=== PATIENT | male | born 1960 | race Caucasian/White ===

== ENCOUNTER 2025-03-21 14:11 | Outpatient (POV) | payer BC, SELFPAY ==
--- OUTSIDE RECORDS SUMMARY | 2025-03-21 14:30 | XMS_ITS | Continuity of Care Document ---
Author Organization ERIN - Sha gagnon MD, Main Office Address [address] , [facility] [address] [place] [address] Care Team Providers Care Magician Helper Name Role Phone RAMIRO WHITE Primary Care Provider Assessment No assessment recorded. Plan of Treatment Reminders Order Date Submit Date Provider Last Modified By Organization Details Last Modified Time Details Appointments None record ed. Lab None record ed. Referral None record ed. Procedures None record ed. Surgeries None record ed. Imaging None record ed. Medication Orders None record ed. Patient TargetsNo targets recorded. Patient Instructions Encounter Date Encounter Id Patient Instructions Last Modified By Organization Details Last Modified Time 03/20/2025 [id number] Learning About Relief for Back Pain Not available 03/20/2025 13:05:32 Reason for Referral None Reported. Results Created Date Observation Date Name Description Value Unit Range Abnormal Flag Note LastModifiedBy Organization Detail LastModifiedTime 03/20/2003/20/2025 elect romyo gram + nerve condu ction study No observ ation record ed. BARCODE Not Available 2024 13:13:11 Result Notes None recorded. Problems No Known Problems Procedures Surgical History Date Name Laterality Status Provider Name and Address Organization Details Recorded Time 03/20/2025 NCV/EMG completed Franc Aguirre MD 03/20/2025 13:04:47 Imaging Results None recorded. Procedure Notes None recorded. Medical Equipment None Reported. Allergies No known drug allergies Medications Name Sig Start Date Stop Date Status Note LastModified by Organization Details LastModified Time amoxicillin 500 mg capsule TAKE FOUR (4) CAPSULES BY ORAL ROUTE. active Not Available Not Available Not Available atorvastatin 40 mg tablet TAKE ONE (1) TABLET EVERY DAY BY ORAL ROUTE DIRECTED active Not Available Not Available No t Available prednisone 10 mg tablet TAKE ONE (1) TABLET TWICE A DAY BY ORAL ROUTE FOR FIVE (5) DAYS. active Not Available Not Available No t Available griseofulvin microsize 500 mg tablet TAKE ONE (1) TABLET BY MOUTH TWICE DAILY active Not Available Not Available Not Available clopidogrel 75 mg tablet TAKE ONE (1) TABLET BY MOUTH EVERY DAY active Not Available Not Available No t Available tramadol 50 mg tablet TAKE ONE (1) TABLET TWICE A DAY BY ORAL ROUTE FOR THREE (3) DAYS, FOR HIP PAIN. active Not Available Not Available No t Available benzonatate 100 mg capsule TAKE ONE (1) CAPSULE THREE (3) TIMES A DAY BY ORAL ROUTE NEEDED FOR FIVE (5) DAYS, FOR COUGH. active Not Available Not Available No t Available oseltamivir 75 mg capsule TAKE ONE (1) CAPSULE (75 MG) BY ORAL ROUTE TWO (2) TIMES PER DAY FOR FIVE (5) DAYS active Not Available Not Available No t Available nitroglyceri n 400 mcg/spray translingual PLACE ONE (1) SPRAY (0.4 MG) BY TRANSLINGUA L ROUTE ONTO OR UNDER THE TONGUEAT THE FIRST SIGN OF AN ATTACK; NO MORE THAN THREE (3) SPRAYS/15 MINUTE PERIOD active Not Available Not Available No t Available omeprazole 20 mg capsule,darrick yed release TAKE 1 CAPSULE BY MOUTH EVERY DAY active Not Available Not Available No t Available fluticasone propionate 50 mcg/actuatio n nasal spray,suspen ector INHALE ONE (1) SPRAY (50 MCG) IN EACH NOSTRIL BY INTRANASAL ROUTE TWO (2) TIMES PER DAY FOR 7 DAYS active Not Available Not Available No t Available lisinopril 2.5 mg tablet TAKE ONE (1) TABLET BY MOUTH EVERY DAY active Not Available Not Available No t Available diclofenac 1 % topical gel APPLY TWO (2) GRAMS TO THE AFFECTED AREA(S) BY TOPICAL ROUTE FOUR (4) TIMES PER DAY active Not Available Not Available No t Available Vitals None Recorded Social History None recorded. Functional Status None recorded. Mental Status None recorded. Family History Nothing Reported. Medical History No medical history recorded. Past Encounters Encounter ID Performer Location Encounter Start Date Encounter Closed Date Diagnosis/Indication Diagnosis SNOMED-CT Code Diagnosis ICD10 Code Diagnosis Note [id number] Sha Aguirre MD Main Office [address] [facility], [facility] [address] [place] [address] 03/20/2025 12:21:59 03/20/2025 13:07:35 Lumbosacral radiculopathy 2132448 M54.17 Moderate acute and chronic right L5/S1 radiculopa thy Health Concerns Section Related Observation LastModified by Organization Brennen ls LastModified Time None Recorded Concern Status LastModified by Organization Details LastModified Time None Recorded Payers Encounter Date Sequence Insurance Name Policy Number Policy Mac Covered Member ID Mac Member ID Guarantor Name 03/20/2025 1 [employer] [id number] Essence Dunlap [id number] Sean Dunlap
--- OUTSIDE RECORDS SUMMARY | 2025-03-21 14:30 | XMS_ITS | Data Portability ---
Author Organization [place] [facility] [place] [facility] [place] [facility] ADMIN Address [address] [place] [address] Care Team Providers Care Superintendent Storage Area Name Role Phone RAMIRO WHITE Primary Care Provider Assessment Encounter Date Assessment Date Assessment LastModified by Organization Details LastModified Time 10/22/2024 10/22/2024 doing very well. No chest pain pressure or tightness. No shortness of breath. Will do an EKG at follow-up. Overall he feels well. No other issues at this time. He is here for a 1 month follow-up. He did have a gallbladder ultrasound. That came back okay. He is on Plavix. We will see him back in 3 months. Meds and chart reviewed in full today. Continue aspirin and Plavix. Continue atorvastatin. Follow-up in Cardiology Clinic in 3 months - LAST ECHO: 03/28/2024 with normal function of the heart is 60% and diastolic dysfunction with mild mitral insufficiency Myoview stress test 03/28/2024 patient walked 9 minutes with excellent functional capacity and low risk Carrillo treadmill with normal perfusion and normal left ventricular systolic function LAST HEART CATH: September 2021 revealed borderline normal LVEF with PCI to the right coronary artery as well as the right renal artery. - Plan: Continue aspirin and Plavix EKG at follow-up Follow-up in Cardiology Clinic in 3 months Discussed invasive procedure. Possible false negative of previous stress. He would like to wait on the US results. Advised to return sooner if sx return. Monitor cardiac symptoms Follow-up in Cardiology Clinic in 6-7 months - Tobacco cessation and counseling provided today, - -Continue other current medications. -Continue aggressive risk factor modification. -Recommend LDL less than 70. -Encouraged regular exercise and activity. - robin Not available 10/27/2024 10:32:11 01/21/2025 01/21/2025 Doing well. No chest pain pressure or tightness. No shortness of breath. Blood pressure and heart rate have been under excellent control. EKG today shows normal sinus rhythm with incomplete right bundle-branch block and poor R-wave progression but no ST or T-wave changes. Will do full blood work. Follow-up in 6 months. Meds and chart reviewed in full today EKG shows normal sinus rhythm with incomplete right bundle-branch ST and T-wave changes with left axis deviation and left anterior hemiblock LAST ECHO: 03/28/2024 with normal function of the heart is 60% and diastolic dysfunction with mild mitral insufficiency Myoview stress test 03/28/2024 patient walked 9 minutes with excellent functional capacity and low risk Carrillo treadmill with normal perfusion and normal left ventricular systolic function LAST HEART CATH: September 2021 revealed borderline normal LVEF with PCI to the right coronary artery as well as the right renal artery. Plan: Continue Lipitor Lipid, liver and renal in 1-2 weeks Continue Plavix Monitor cardiac symptoms Monitor blood pressure and heart rate Follow-up in Cardiology Clinic in 6 months -Continue other current medications. -Continue aggressive risk factor modification. -Recommend LDL less than 70. -Encouraged regular exercise and activity. robin Not available 01/21/2025 13:37:40 Plan of Treatment Reminders Order Date Submit Date Provider Last Modified By Organization Details Last Modified Time Details Appointments OV EST 30 2024 09:00A M Gerhard Giron MD Not available Not available Not available Lab CMP, serum or plasma [address] (Registration ), [address] [place] [address] [place], [address], 01/28/2025 08:47:50 lipid panel, blood [address] (Registration ), [place], [address], 01/28/2025 08:48:24 Referral None recorded. Procedures None recorded. Surgeries None recorded. Imaging electroca rdiogram 2024 025 robin Cheema [facility], [address] [place] [address] [address], [place], [address], 01/21/2025 09:28:09 XR, hip, unilatera l 2024 025 [email or web address] Lynn [facility], [address] [place] [address] [place], [address], 01/01/2025 10:41:46 MRI, lumbar spine, w/o contrast 2024 025 [facility] Scheduling, [address] [place] [address] [place], [address], 01/23/2025 12:24:28 Medication Orders Medrol (Jonathan) 4 mg tablets in a dose pack [address], [address], 01/21/2025 09:38:24 Patient TargetsNo targets recorded. Patient InstructionsNo instructions recorded. Reason for Referral None Reported. Results Created Date Observation Date Name Description Value Unit Range Abnormal Flag Note LastModifiedBy Organization Detail LastModifiedTime 10/19/1909/04/2024 , rhonda delacruz No observ ation record ed. david Cheema [address], [place], [address], 10/22/2024 07:34:40 11/22/19 25 09/10/2024 elect simi raza am inter preta tion* No observ ation record ed. [email or web address] Not Available 2024 13:07:29 01/02/20 XR, hip, unila teral No observ ation record ed. acostlizabeth [facility] [address] [place] [address] [place], [address], 01/01/2025 09:32:01 01/11/20 25 01/07/2025 imagi ng/di agnos tic resul t No observ ation record ed. Mv [facility] [address] [facility] , [place], [address], 01/10/2025 15:38:26 01/22/20 elect rocar diogr am No observ ation record ed. ELAINE Mv [address], [place], [address], 01/21/2025 09:03:21 01/22/20 25 01/21/2025 elect rocar diogr am No observ ation record ed. [email or web address] Not Available 2024 12:29:35 01/24/20 25 01/17/2025 MRI, lumba r spine , w/o contr ast [facility] Name[facility] Phys: Nunu DATABASE MARKETING ANALYST/F TIRE CLASSIFIER,[place] [address] : 1959 Age: 64 Sex: M Acct: [id number] Loc: Jose.MRI PHONE #: Exam Date: 2024 Status : DEP CLI FAX #: [phone] Rad# [id number] Unit# [id number] Admit Date: 2024 EXAMS: CPT CODE: [id number] MRI LUMBAR SPINE W/O CONT [id number] EXAM: MRI LUMBAR SPINE W/O CONT CLINIC AL INDICA TION: Male, 64 years old. PAIN COMPAR CHAGO: None Sagitt al and axial sequen everette were obtain ed lumbar spine withou t contra st. The verteb ra are in normal alignm ent. Normal verteb ral body height . L1-2: Normal disc space height . There is no hernia tion or centra l canal stenos is. No neurof oramin al narrow ing. L2-3: Loss of disc space height with decrea sed signal intens ity of the disc indica tive of disc degene ration . Mild degene rative endpla te change s. Minima l annula r bulge withou t focal hernia tion or centra l canal stenos is. Facet hypert rophy result s in modera te bilate ral neurof oramin al stenos is, left greate r than right. L3-4: Diffus e loss of disc space height with chroni c degene rative endpla te change s and annula r disc bulge. No centra l canal stenos is. Bilate ral facet and ligame ntum flavum hypert rophy which result s in severe right and modera te to severe left neurof oramin al stenos is. L4-5: Diffus e loss of disc space height with degene rative endpla te change s and annula r disc bulge. No centra l canal stenos is. Modera te bilate ral facet and ligame ntum flavum hypert rophy. Severe bilate ral neural forami nal stenos is. L5-S1: Normal disc space height . Chroni c degene rative disc change s withou t hernia tion. No centra l canal stenos is. Modera te left and severe right neurof oramin al stenos is. Normal contou r and signal intens ity of conus medull fozia. No eviden ce of acute parasp inal soft tissue abnorm ality. IMPRES KRISTINA: No acute abnorm alitie s in lumbar spine. Multil evel chroni c degene rative change s as above. Disc space narrow ing and bilate ral neural forami nal stenos is most severe at the L3-4 and L4-5 levels and also on the right at the L5-S1 PAGE 1 Signed Report (FORREST NUED) [facility] Name: VAUGHN DUNLAP [address] [facility] l [employer]OWER Mobile Phys: [place] DATABASE MARKETING ANALYST/F TIRE CLASSIFIER,[place] [address] : 1959 Age: 64 Sex: M Acct: [id number] Loc: Jose.MRI PHONE #: Exam Date: 2024 Status : DEP CLI FAX #: Rad# [id number] Unit# [id number] Admit Date: 2024 EXAMS: CPT CODE: [id number] MRI LUMBAR SPINE W/O CONT 66257 level. Electr onical ly signed by: Ozzie Rodriges MD 2024 02:07 PM EDT RP Workst ation: [id number] Electr onical ly Signed by OZZIE RODRIGES MD on 2024 at 1403 Report ed and signed by: Yamini RODRIGES MD CC: Rasheed White APRN; Shamika Louis [place] DATABASE MARKETING ANALYST/F TIRE CLASSIFIER Dictat ed Date/T thor: 2024 (1403) Techno logist : SINCERE JAMESON Transc ribed Date/T thor: 2024 (1403) Transc riptio nist: DR.KIN SINGH Electr onic Signat ure Date/T thor: 2024 (1403) Printe d Date/T thor: 2024 (1222) BATCH NO: N/A PAGE 2 Signed Report CC'ed Logic: Orderi ng Provid er: NUNU SHAMIKA Attend ing Provid er: NUNU SHAMIKA Referr ing Provid er: NUNU SHAMIKA Consul ting Provid er: CINDY [address], [address], 01/24/2025 08:51:54 Result Notes Documentation Provider Name and Address Organization Details Recorded Time Mri, Lumbar Spine, W/o Contrast : [facility] Ce Name: GERMÁNSEAN [address] [place] [address] Phys: [place] DATABASE MARKETING ANALYST/HEAT AND [place] [address] : 1960 Age: 64 Sex: M Acct: [id number] Loc: G.MRI PHONE #: Exam Date: 01/17/2025 Status: DEP CLI FAX #: Rad# [id number] Unit# [id number] Admit Date: 01/17/2025 EXAMS: CPT CODE: [id number] MRI LUMBAR SPINE W/O CONT [id number] EXAM: MRI LUMBAR SPINE W/O CONT CLINICAL INDICATION: Male, 64 years old. PAIN COMPARISON: None Sagittal and axial sequences were obtained lumbar spine without contrast. The vertebra are in normal alignment. Normal vertebral body height. L1-2: Normal disc space height. There is no herniation or central canal stenosis. No neuroforaminal narrowing. L2-3: Loss of disc space height with decreased signal intensity of the disc indicative of disc degeneration. Mild degenerative endplate changes. Minimal annular bulge without focal herniation or central canal stenosis. Facet hypertrophy results in moderate bilateral neuroforaminal stenosis, left greater than right. L3-4: Diffuse loss of disc space height with chronic degenerative endplate changes and annular disc bulge. No central canal stenosis. Bilateral facet and ligamentum flavum hypertrophy which results in severe right and moderate to severe left neuroforaminal stenosis. L4-5: Diffuse loss of disc space height with degenerative endplate changes and annular disc bulge. No central canal stenosis. Moderate bilateral facet and ligamentum flavum hypertrophy. Severe bilateral neural foraminal stenosis. L5-S1: Normal disc space height. Chronic degenerative disc changes without herniation. No central canal stenosis. Moderate left and severe right neuroforaminal stenosis. Normal contour and signal intensity of conus medullaris. No evidence of acute paraspinal soft tissue abnormality. IMPRESSION: No acute abnormalities in lumbar spine. Multilevel chronic degenerative changes as above. Disc space narrowing and bilateral neural foraminal stenosis most severe at the L3-4 and L4-5 levels and also on the right at the L5-S1 PAGE 1 Signed Report (CONTINUED) [facility] Ce Name: SEAN DUNLAP [address] [place] [address] Phys: Nunu JUSTIN/[place] [address] : 1960 Age: 64 Sex: M Acct: [id number] Loc: G.MRI PHONE #: Exam Date: 01/17/2025 Status: DEP CLI FAX #: Rad# [id number] Unit# [id number] Admit Date: 01/17/2025 EXAMS: CPT CODE: [id number] MRI LUMBAR SPINE W/O CONT 00725 level. Electronically signed by: Pradeep Rodriges MD 01/17/2025 02:07 PM EDT at 1403 Reported and signed by: PRADEEP RODRIGES MD CC: Ramiro White APRN; Shamika Eddy DATABASE MARKETING ANALYST/HEAT AND VENT AIRCRAFT MECHANIC Dictated Date/Time: 01/17/2025 (1403) Technologist: SINCERE JAMESON Transcribed Date/Time: 01/17/2025 (1403) Air Cargo Specialist Supervisor: Electronic Signature Date/Time: 01/17/2025 (1403) Printed Date/Time: 01/23/2025 (1222) BATCH NO: N/A PAGE 2 Signed Report CC'ed Logic: Ordering Provider: NUNU WICK Attending Provider: NUNU WICK Referring Provider: NUNU WICK Consulting Provider: CINDY EDDY, DAMIR [address] [place] [address],[address], [place], [address] [place] [facility] [place] [facility] [place] 01/24/2025 08:51:54 Problems Name Problem SNOMED Code Status Onset Date Resolution Date Notes Provider Name and Address Organization Details Recorded Time Thyroid hormone tests outside reference range 742706330 Active 2020 Brooke Rodriguez null, [place] - [facility] [place] [facility] [place] 5 15:29:50 Anxiety disorder 241331519 Active 2020 Brooke Rodriguez [place], [place] [facility] [place] [facility] [place] 5 15:29:51 Thyroid nodule 461853227 Active 2020 Brooke Rodriguez null, [place] [facility] [place] [facility] [place] 5 15:29:51 Vitamin D deficiency 16460450 Active 2020 Brooke Rodriguez null, [place] [facility] [place] [facility] [place] 5 15:29:51 Arthritis 3606422 Active Brooke Rodriguez null, [place] [facility] [place] [facility] [place] 5 15:29:51 Osteoarthritis 126579090 Active Brooke Rodriguez [place], [place] [facility] [place] [facility] [place] 5 15:29:51 Family history of diabetes mellitus type 2 657669191 Active 2020 Brooke Rodriguez null, [place] [facility] [place] [facility] [place] 5 15:29:51 Eczema 36467871 Active Brooke Rodriguez [place] [facility] [place] [facility] [place] 5 15:29:51 Anxiety 29870588 Active Brooke Rodriguez null, [place] [facility] [place] [facility] [place] 5 15:29:51 Nicotine dependence 46900856 Active 2020 Brooke Rodriguez null, [place] [facility] [place] [facility] [place] 5 15:29:51 Acute myocardial infarction of inferior wall 42100769 Active Brooke Rodriguez [place], [place] [facility] [place] [facility] [place] 5 15:29:51 Kidney stone 78974212 Active Brooke Rodriguez [place] [facility] [place] 5 15:29:51 Coronary arterioscleros is 30349842 Active 2020 Brooke Rodriguez null, [place] [facility] [place] [facility] [place] 5 15:29:51 Renal artery stenosis 618173387 Active 2021 Gerhard Giron MD [facility] [address] [facility],[address] [place] [address], [address], [place] - [facility] [place] [facility] [place] 2 08:42:26 Essential hypertension 43139152 Active 2021 Gerhard Giron MD [address] [place] [address],[address], [place], [address], [place] [facility] [place] [facility] [place] 2 08:42:31 Hyperlipidemia 99166513 Active 2021 Gerhard Giron MD [facility] [address] [facility],[place] [address], [place], [address], [place] [facility] [place] [facility] [place] 2 08:42:38 Tobacco dependence syndrome 18891340 Active 2023 Gerhard Giron MD [address] [place] [address],[address] [address], [address], [place] [facility] [place] 4 09:58:30 Dyspnea on exertion 59454359 Active 2023 Gerhard Giron MD [address] [place] [address],[place] [address], [place], [address], [place] [facility] [place] 4 09:58:30 Notes:Some problems listed i n Document: #[id number] could not be added to this patient's chart. Please review this document and add these problems to the patient's chart manually as needed. Problem Notes None recorded. Procedures Surgical History Date Name Laterality Status Provider Name and Address Organization Details Recorded Time 022 Joint Replacement completed Crystal Earlywine [place] - [facility] [place] [facility] [place] 04/12/2023 09:06:17 Colonoscopy completed Brooke KHAN - L [facility] [place] [facility] [place] 10/16/2024 10:15:44 Cardiac Catheterization completed Jailyn KHAN - [facility] [place] [facility] [place] 09/06/2022 08:45:08 lithotripsy completed Jailyn KHAN - [facility] [place] [facility] [place] 09/06/2022 08:45:18 operation on hip joint completed Jailyn KHAN - [facility] [place] [facility] [place] 09/06/2022 08:45:29 Imaging Results None recorded. Procedure Notes None recorded. Medical Equipment None Reported. Allergies Allergen ID Allergen Name Allergen Category Reaction Reaction Severity Criticality Documentation Date Start Date Code Code System Note Provider Name and Address Organization Details Recorded Time 103653 terbinafi ne medicatio n Not available Not available Not available 10/17/20242020 33588 RxNorm Brooke harper, [place] - [facility] [place] 5 15:29:48 78442 Lamisil medicatio n Not available Not available Not available 09/06/20222011 30143 6 RxNorm Kathy Eliezer [place], [place] - [facility] [place] [facility] [place] 5 08:13:13 Medications Name Sig Start Date Stop Date Status Note LastModified by Organization Details LastModified Time amoxicillin 500 mg capsule TAKE FOUR (4) CAPSULES BY ORAL ROUTE. active Not Available Not Available No t Available atorvastati n 40 mg tablet TAKE ONE (1) TABLET EVERY DAY BY ORAL ROUTE DIRECTED active Not Available Not Available No t Available atorvastati n 80 mg tablet Take 1 tablet every day by oral route. 09/06 completed Not Available Not Available Not Available prednisone 10 mg tablet TAKE ONE (1) TABLET TWICE A DAY BY ORAL ROUTE FOR FIVE (5) DAYS. 01/21 completed Not Available Not Available Not Available nicotine 14 mg/24 hr daily transdermal patch APPLY ONE (1) PATCH EVERY DAY 09/06 completed Not Available Not Available Not Available Depo-Medrol 40 mg/mL suspension for injection Take 2 mL by injection route. 07/29 completed Not Available Not Available Not Available Zyrtec-D 5 mg-120 mg tablet,exte nded release take 1 tablet by oral route daily 02/11 completed Not Available Not Available Not Available ketoconazol e 200 mg tablet Take 1 tablet every day by oral route for 10 days. 01/15 completed Not Available Not Available Not Available azithromyci n 250 mg tablet TAKE 2 TABLETS TODAY THEN TAKE 1 TABLET DAILY FOR THE NEXT 4 DAYS BY MOUTH 06/05 completed Not Available Not Available Not Available alprazolam 1 mg tablet TAKE ONE (1) TABLET EVERY DAY BY ORAL ROUTE NEEDED FOR 30 DAYS. active Not Available Not Available No t Available hydrocodone 5 mg-acetamin ophen 325 mg tablet 07/17 completed Not Available Not Available Not Available griseofulvi n microsize 500 mg tablet TAKE ONE (1) TABLET BY MOUTH TWICE DAILY 10/17 completed Not Available Not Available Not Available Elidel 1 % topical cream APPLY A THIN LAYER TO THE AFFECTED AREA(S) BY TOPICAL ROUTE 2 TIMES PER DAY ; RUB IN GENTLY AND COMPLETEL Y 03/26 completed Not Available Not Available Not Available Medrol (Jonathan) 4 mg tablets in a dose pack Take 1 dose pk by oral route. 01/21 completed Not Available Not Available Not Available bupivacaine HCl 0.5 % (5 mg/mL) injection solution Take 10 mg by injection route. 09/10 completed Not Available Not Available Not Available naproxen 250 mg tablet Take 1 tablet every day by oral route. 2023 active Not Available Not Available Not Avai lable promethazin e 6.25 mg-codeine 10 mg/5 mL syrup take 5 millilite rs by oral route every 6 hours as needed, not to exceed 30 mL in 24 hours 07/03 completed Not Available Not Available Not Available clopidogrel 75 mg tablet TAKE ONE (1) TABLET BY MOUTH EVERY DAY active Not Available Not Available No t Available Motrin 100 mg tablet 1 tab a day 01/14 completed Not Available Not Available Not Available omeprazole 40 mg capsule,del ayed release TAKE 1 CAPSULE BY MOUTH EVERY DAY 04/12 completed Not Available Not Available Not Available aspirin 81 mg tablet,darrick yed release TAKE 1 TABLET BY MOUTH TWICE DAILY START AT 7AM DAY AFTER SURGERY 04/12 completed Not Available Not Available Not Available tramadol 50 mg tablet TAKE ONE (1) TABLET TWICE A DAY BY ORAL ROUTE FOR THREE (3) DAYS, FOR HIP PAIN. 01/21 completed Not Available Not Available Not Available amoxicillin 500 mg tablet Take 4 tablets by oral route. 2024 active Not Available Not Available Not Avai lable Depo-Medrol 80 mg/mL suspension for injection 2 ml injected intra-art icular today by provider 07/29 completed Not Available Not Available Not Available Kenalog 40 mg/mL suspension for injection Take 2 mL by injection route. 12/24 completed Not Available Not Available Not Available cefadroxil 500 mg capsule TAKE 1 CAPSULE BY MOUTH TWICE DAILY 09/06 completed Not Available Not Available Not Available oxycodone-a cetaminophe n 5 mg-325 mg tablet TAKE 1 TABLET BY MOUTH EVERY FOUR (4) HOURS NEEDED FOR PAIN 03/14 completed Not Available Not Available Not Available terbinafine HCl 250 mg tablet TAKE ONE (1) TABLET EVERY DAY BY ORAL ROUTE FOR 30 DAYS. 03/14 completed Not Available Not Available Not Available Diflucan 100 mg tablet take 1 tablet (100 mg) by oral route once daily for 7 days 05/04 completed Not Available Not Available Not Available Celexa 20 mg tablet Take 1 tablet every day by oral route for 30 days. 09/14 completed Not Available Not Available Not Available Kenalog 10 mg/mL suspension for injection Take 20 mg by injection route. 09/10 completed Not Available Not Available Not Available benzonatate 100 mg capsule TAKE ONE (1) CAPSULE THREE (3) TIMES A DAY BY ORAL ROUTE NEEDED FOR FIVE (5) DAYS, FOR COUGH. 10/16 completed Not Available Not Available Not Available cephalexin 500 mg capsule TAKE ONE (1) CAPSULE THREE (3) TIMES DAILY UNTIL GONE. TAKE WITH FOOD. 06/05 completed Not Available Not Available Not Available erythromyci n 5 mg/gram (0.5 %) eye ointment APPLY SMALL AMOUNT INTO THE LEFT EYE THREE (3) TIMES DAILY 09/17 completed Not Available Not Available Not Available oseltamivir 75 mg capsule TAKE ONE (1) CAPSULE (75 MG) BY ORAL ROUTE TWO (2) TIMES PER DAY FOR FIVE (5) DAYS 09/10 completed Not Available Not Available Not Available Cipro 500 mg tablet take 1 tablet (500 mg) by oral route 2 times per day 07/03 completed Not Available Not Available Not Available clotrimazol e-betametha sone 1 %-0.05 % topical cream APPLY TO THE AFFECTED AND SURROUNDI NG AREAS OF SKIN BY TOPICAL ROUTE 2 x daily 06/09 completed Not Available Not Available Not Available clotrimazol e 1 % topical solution APPLY TO THE AFFECTED AND SURROUNDI NG AREAS OF SKIN BY TOPICAL ROUTE 2 TIMES PER DAY IN THE MORNING AND EVENING 03/26 completed Not Available Not Available Not Available nitroglycer in 400 mcg/spray translingua l PLACE ONE (1) SPRAY (0.4 MG) BY TRANSLING UAL ROUTE ONTO OR UNDER THE TONGUEAT THE FIRST SIGN OF AN ATTACK; NO MORE THAN THREE (3) SPRAYS/15 MINUTE PERIOD active Not Available Not Available No t Available nitroglycer in 0.[address] ONE (1) TABLET NEEDED BY SUBLINGUA L ROUTE DIRECTED. 04/12 completed Not Available Not Available Not Available omeprazole 20 mg capsule,del ayed release TAKE 1 CAPSULE BY MOUTH EVERY DAY active Not Available Not Available No t Available zinc 50 mg tablet 1 or 2 times a week 10/22 completed Not Available Not Available Not Available dexamethaso ne sodium phosphate 4 mg/mL injection solution Inject 1 mL every day by intramusc ular route. 06/12 completed Not Available Not Available Not Available Anusol-HC 25 mg rectal suppository insert 1 supposito ry (25 mg) by rectal route 2 times per day for 6 days 02/11 completed Not Available Not Available Not Available ketoconazol e 2 % topical cream APPLY CREAM TO THE AFFECTED AREA(S) EVERY NIGHT AT BEDTIME active Not Available Not Available No t Available ondansetron 4 mg disintegrat ing tablet 07/17 completed Not Available Not Available Not Available cefdinir 300 mg capsule take 1 capsule (300 mg) by oral route every 12 hours for 10 days 05/21 completed Not Available Not Available Not Available fluticasone propionate 50 mcg/actuati on nasal spray,suspe nsion INHALE ONE (1) SPRAY (50 MCG) IN EACH NOSTRIL BY INTRANASA L ROUTE TWO (2) TIMES PER DAY FOR 7 DAYS 10/17 completed Not Available Not Available Not Available lisinopril 2.5 mg tablet TAKE ONE (1) TABLET BY MOUTH EVERY DAY 10/17 completed Not Available Not Available Not Available amoxicillin 875 mg-potassiu m clavulanate 125 mg tablet take 1 tablet by oral route every 12 hours for 10 days 02/14 completed Not Available Not Available Not Available Bactrim DS 800 mg-160 mg tablet Take 2 tablets every 12 hours by oral route. 09/19 completed Not Available Not Available Not Available Anusol-HC rectal cream apply tid 02/11 completed Not Available Not Available Not Available metoprolol tartrate 25 mg tablet Take 1 tablet twice a day by oral route. 04/12 completed Not Available Not Available Not Available pregabalin 75 mg capsule TAKE ONE (1) CAPSULE BY MOUTH EVERY NIGHT AT BEDTIME FOR ONE WEEK, THEN TWICE DAILY THEREAFTE R active Not Available Not Available No t Available Mucinex D 60 mg-600 mg tablet,exte nded release take 1 tablet by oral route every 12 hours as needed for 10 days 05/25 completed Not Available Not Available Not Available Naprosyn 1 tab bid 02/11 completed Not Available Not Available Not Available Diflucan 1 qd 12/08 completed Not Available Not Available Not Available Keflex 1 bid 01/14 completed Not Available Not Available Not Available apple cider vinegar 1 tablespoo n daily 03/14 completed Not Available Not Available Not Available Engerix-B (PF) 20 mcg/mL intramuscul ar syringe 04/16 completed Not Available Not Available Not Available Engerix-B (PF) 20 mcg/mL intramuscul ar suspension 04/16 completed Not Available Not Available Not Available diclofenac 1 % topical gel APPLY TWO (2) GRAMS TO THE AFFECTED AREA(S) BY TOPICAL ROUTE FOUR (4) TIMES PER DAY active Not Available Not Available No t Available cholecalcif edel (vitamin D3) 50 mcg (2,000 unit) tablet TAKE 1 TABLET BY MOUTH EVERY DAY 03/14 completed Not Available Not Available Not Available Vitamin D 5,000 unit tablet Take 1 tablet every day by oral route. 07/01 completed Not Available Not Available Not Available Nitromist 400 mcg/spray translingua l aerosol PLACE 1 SPRAY (0.4 MG) BY TRANSLING UAL ROUTE ONTO OR UNDER THE TONGUEAT THE FIRST SIGN OF AN ATTACK; NO MORE THAN 3 SPRAYS/15 MINUTE PERIOD 10/17 completed Not Available Not Available Not Available naproxen sodium 220 mg capsule Take 1 capsule every 12 hours by oral route. active Not Available Not Available No t Available Vitamin D3 50 mcg (2,000 unit) capsule Take 1 capsule every day by oral route as directed for 90 days. 10/20 completed Not Available Not Available Not Available olive leaf extract 250 mg capsule sometimes 09/17 completed Not Available Not Available Not Available AndroGel 20.25 mg/1.25 gram per pump act. (1.62 %) transdermal gel Apply 4 pumps every day by transderm al route for 30 days. 09/14 completed Not Available Not Available Not Available Brilinta 90 mg tablet Take 1 tablet twice a day by oral route. 12/24 completed Not Available Not Available Not Available Eucrisa 2 % topical ointment 10/18 completed Not Available Not Available Not Available Sutab 1.479-0.188 -0.225 gram tablet USE DIRECTED 09/23 completed Not Available Not Available Not Available aspirin 81 mg capsule Take 1 capsule every day by oral route. 04/14 completed Not Available Not Available Not Available Vitals Date Recorded Body height Body mass index (BMI) Body weight Heart rate Oxygen saturation Oxygen saturation in Arterial blood by Pulse oximetry Body temperature Systolic blood pressure Diastolic blood pressure Provider Name and Address Organization Details Last Updated DateTime 5 175.26 cm 25.6 kg/m2 87230.2 g 81 /min 96 % 96 % 98.2 [degF] 125 mm[Hg] 73 mm[Hg] Brooke Rodriguez [facility] & [place] 5 16:08:38 Date Recorded Body height Body mass index (BMI) Body weight Oxygen saturation Oxygen saturation in Arterial blood by Pulse oximetry Heart rate Systolic blood pressure Diastolic blood pressure Provider Name and Address Organization Details Last Updated DateTime 5 175.26 cm 25.3 kg/m2 52795.7 3 g 96 % 96 % 75 /min 138 mm[Hg] 72 mm[Hg] Kathy Martins ERIN Ribeiro [facility] & [place] 5 08:15:32 Date Recorded Body height Body mass index (BMI) Body weight Oxygen saturation Oxygen saturation in Arterial blood by Pulse oximetry Heart rate Systolic blood pressure Diastolic blood pressure Provider Name and Address Organization Details Last Updated DateTime 5 175.26 cm 24.7 kg/m2 92454.9 3 g 96 % 96 % 67 /min 110 mm[Hg] 70 mm[Hg] Jailyn Ribeiro [facility] & [place] 5 09:05:55 Social History Question Answer Notes LastModified by Organizat ion Details LastModified Time Tobacco Smoking Status Current Every Day Smoker ERIN Meade [facility] & [place] 09/06/2022 08:44:49 Do You Have An Advance Directive? No [email or web address] Information not available 01/21/2025 Are You Blind Or Do You Have Difficulty Seeing? No [email or web address] Information not available 01/21/2025 What Was The Date Of Your Most Recent Tobacco Screening? 10/14/2024 [email or web address] Information not available 01/21/2025 Are You Passively Exposed To Smoke? No Information not available 04/12/2023 How Much Tobacco Do You Smoke? 1 PPD Information not available 04/12/2023 How Many Years Have You Smoked Tobacco? 40 Information not available 04/12/2023 Sex: Male Functional Status Question Answer Note LastModified by Organizat ion Details LastModified Time Do you use any illicit or recreational drugs? No [email or web address] Information not available 09/06/2022 What is your level of alcohol consumption? None Information not available 09/06/2022 Do you or have you ever used smokeless tobacco? 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 Moderate Information not available 04/12/2023 Mental Status None recorded. Family History Relationship Description Onset Age of this Age Resolved Age Notes LastModified by Organization Details LastModified Time Mother Diabetes mellitus [email or web address] Not available 2024 08:51:50 Mother Malignant neoplastic disease [email or web address] Not available 2024 08:51:50 Father Diabetes mellitus [email or web address] Not available 2024 08:51:50 Father Hypertensive disorder [email or web address] Not available 08:44:01 Father Coronary arterioscler osis [email or web address] Not available 2024 08:51:50 Medical History Condition Response Anxiety Disorder Y Coronary Artery Disease Y Heart Attack (NE) Y Hyperlipidemia Y Heart Disease Y Hypertension N Immunizations Vaccine Type Date Status Note Provider Nam e and Address Organization Details Recorded Time COVID-19, mRNA, LNP-S, PF, 100 mcg/0.5mL dose or 50 mcg/0.25mL dose 0 completed Jailyn harper, [place] - [facility] - [place] & [place] 09/10/2024 12:04:14 Td (adult), 5 Lf tetanus toxoid, preservative free, adsorbed 9 completed Jailyn Ward null, [place] [facility] & [place] 09/10/2024 12:04:14 Td (adult), 2 Lf tetanus toxoid, preservative free, adsorbed 0 completed Jailyn Ward null, [place] [facility] [place] [facility] & [place] 09/10/2024 12:04:14 Influenza, split virus, quadrivalent, preservative 9 completed Brooke Rodriguez null, [place] [facility] [place] [facility] & [place] 10/17/2024 15:29:51 Influenza, split virus, quadrivalent, preservative 3 completed Brooke Rodriguez [place] [facility] [place] [facility] & [place] 10/17/2024 15:29:51 Influenza, split virus, quadrivalent, preservative 0 completed Brooke Rodriguez [place] [facility] [place] [facility] & [place] 10/17/2024 15:29:51 Influenza, split virus, quadrivalent, preservative 6 completed Brooke Rodriguez [place] [facility] [place] [facility] & [place] 10/17/2024 15:29:51 Influenza, split virus, quadrivalent, preservative 8 completed Brooke Rodriguez [place] [facility] [place] [facility] & [place] 10/17/2024 15:29:51 zoster recombinant 2 completed Brooke Rodriguez null[place] [facility] [place] [facility] & [place] 10/17/2024 15:29:51 zoster recombinant 2 completed Brooke Rodriguez [place] [facility] [place] & [place] 10/17/2024 15:29:51 SARS-COV-2 (COVID-19) vaccine, UNSPECIFIED 1 completed Brooke Rodriguez null[place] [facility] [place] 10/17/2024 15:29:51 SARS-COV-2 (COVID-19) vaccine, UNSPECIFIED 1 completed Brooke Rodriguez null[place] [facility] [place] [facility] & [place] 10/17/2024 15:29:51 influenza, unspecified formulation 5 completed Brooke Rodriguez [place] [facility] [place] & [place] 10/17/2024 15:29:51 Influenza, split virus, trivalent, preservative 4 completed Brooke Rodriguez [place] [facility] - & [place] 10/17/2024 15:29:51 Hep B, adolescent or pediatric 5 completed Brooke [place] [facility] [place] & [place] 10/17/2024 15:29:51 Hep B, adolescent or pediatric 5 completed Brooke [place] [facility] [place] & [place] 10/17/2024 15:29:51 Hep B, adolescent or pediatric 5 completed Brooke [place] [facility] [place] & [place] 10/17/2024 15:29:51 Hep B, adult 9 completed Brooke [place] [facility] [place] & [place] 10/17/2024 15:29:51 Hep B, adult 8 completed Brooke [place] [facility] [place] & [place] 10/17/2024 15:29:51 Hep B, adult 8 completed Brooke [place] [facility] [place] & [place] 10/17/2024 15:29:51 Hep A, adult 9 completed Brooke [place] [facility] [place] & [place] 10/17/2024 15:29:51 tetanus toxoid, adsorbed 2 completed Brooke Rodriguez [place] [facility] [place] & [place] 10/17/2024 15:29:51 Past Encounters Encounter ID Performer Location Encounter Start Date Encounter Closed Date Diagnosis/Indication Diagnosis SNOMED-CT Code Diagnosis ICD10 Code Diagnosis Note [id number] Gerhard Giron MD [address] [place] [address] 09/06/2022 08:16:54 09/06/2022 08:41:55 Coronary arteriosclerosis 53793341 I25.10 Renal artery stenosis 30 0713345 I70.1 Essential hypertension 72714548 I10 Hyperlipidemia 67674219 E78.5 [id number] ASHELY HECTOR NP, S [address] [place] [phone] 04/12/2023 08:18:49 04/12/2023 09:43:47 Essential hypertension 71882220 I10 Coronary arteriosclerosis 74809998 I25.10 Renal artery stenosis 30 0152379 I70.1 Hyperlipidemia 89769449 E78.5 [id number] ASHELY HECTOR NP, S [address] [place] [place], [place] [address] 03/14/2024 13:59:11 03/14/2024 15:22:33 Essential hypertension 12207690 I10 Angina pectoris 91140485 0 I20.9 Dyspnea on exertion 6084 5006 R06.09 Coronary arteriosclerosis 02188767 I25.10 Hyperlipidemia 46723287 E78.5 Renal artery stenosis 30 9328345 I70.1 Tobacco de pendence syndrome 56491611 F17.383 [id number] Gerhard Giron MD [address] [place] [place], [place] [phone] 04/16/2024 08:55:28 04/16/2024 09:34:33 Essential hypertension 65128604 I10 Coronary arteriosclerosis 60688299 I25.10 Hyperlipidemia 04937734 E78.5 Renal artery stenosis 30 0517089 I70.1 Tobacco de pendence syndrome 63137038 F17.[address] percutaneous transluminal coronary angioplasty 498618806 Z98.61 [id number] Wilmer Cohen MD [facility] [address] [place] [address] 08/23/2024 09:24:16 08/23/2024 10:53:20 Injury of knee 237855332 S89.92XA Osteoarthr itis of left knee joint 6933991464 77397 M17.12 [id number] FERNANDA AGUILERA NP [address] [place] [id number] 09/10/2024 12:47:56 09/10/2024 14:29:20 Chest pain 42520909 R07.9 Essential hypertension 62110107 I10 Coronary arteriosclerosis 69300162 I25.10 Hyperlipidemia 93710663 E78.5 Renal artery stenosis 30 0189088 I70.1 Tobacco de pendence syndrome 66560859 F17.[address] percutaneous transluminal coronary angioplasty 423995285 Z98.61 [id number] MD LYNN Barajas [address] [place] [id number] 10/22/2024 07:55:06 10/22/2024 08:26:19 Coronary arteriosclerosis 82730342 I25.10 Essential hypertension 00920406 I10 Hyperlipidemia 92511107 E78.5 Renal artery stenosis 30 1797982 I70.1 Tobacco de pendence syndrome 36758340 F17.[address] percutaneous transluminal coronary angioplasty 450428897 Z98.61 [id number] MD LYNN Rogel [facility] [address] [place] [address] 10/17/2024 15:17:11 10/17/2024 17:10:22 Right upper quadrant pain 461540007 R10.11 1 episode. See below. Polyp of gallbladder 197 350449 K82.4 Versus nonshadowi ng stone. The patient has been started on Prilosec and believes this has helped. I did advise that he abstain from tobacco and caffeine. I did offer removal of his gallbladde r versus continued observatio n and he has chosen the later. If he develops any recurrent symptoms we will have him return to the office. [id number] DAMIR LIM [facility] [address] [place] [address] 01/01/2025 08:57:24 01/01/2025 10:22:28 Pain of hip region 01949426 M25.551 Lumbar radiculitis 86074 70776 5425389 M54.16 [id number] MD LYNN Barajas [address] [place] [id number] 01/21/2025 08:51:40 01/21/2025 09:28:51 Dyspnea on exertion 39988507 R06.09 improved Hyperlipidemia 48034143 E78.5 Coronary arteriosclerosis 67651506 I25.10 Essential hypertension 83517414 I10 Renal artery stenosis 30 9573549 I70.1 History of percutaneous transluminal coronary angioplasty 922133781 Z98.61 [id number] Wilmer Cohen MD Elijah yuan [facility] [address] [place] [address] 01/24/2025 08:21:04 01/24/2025 09:02:43 Stenosis of lumbar vertebral foramen 225838686 M48.061 Health Concerns Section Related Observation LastModified by Organization Detai ls LastModified Time None Recorded Concern Status LastModified by Organization Details LastModified Time None Recorded Advance Directives Directive N: Payers Insurance Date Sequence Insurance Name Policy Number Policy Mac Covered Member ID Mac Member ID Guarantor Name 01/30/2025 1 [place] [id number] Essence Dunlap [id number] Sean Lewis Germán Notes Date Note Type Note Provider Name and Address Organization Details Recorded Time 5 text/html Sean is a 64-year-old man who over Thanksgiving had an episode of right upper quadrant abdominal pain. He was seen in the emergency room with an ultrasound which showed either a nonshadowing gallbladder stone versus a polyp. He did not have any nausea or vomiting. The since then he has had some abdominal bloating. He does have a history of coronary artery disease and has had 2 stents and is on Plavix. He does smoke cigarettes as well as using 2 cups of coffee every morning. Nico Mckay MD [address] [place] [address],[address], [place], [address], [place] [facility] [place] 10/17/2024 18:01:08 5 text/html doing well. No chest pain pressure or tightness. No shortness of breath. Blood pressure and heart rate have been under excellent control. Overall he feels well Gerhard Giron MD [address] [place] [address],[address], [place], [address], [place] [facility] [place] 10/27/2024 10:32:29 5 text/html This 64 year old male patient presents in the office for low back and RIGHT groin pain that started on 12.08.24 after loading books into totes and lifting them.He went to the Chiropractor Dr. Cowan on December 10, , , , , , .Went and saw Ramior White DATABASE MARKETING ANALYST 12.11.24 and got Decadron 4mg and Prednisone x 5 days that was ineffective.X-rays at [facility] 12.13.24 Lumbar SpineIMPRESSION: Mild to moderate multilevel degenerative changes of the lumbar spine, most prominent at L4-5, without spondylolisthesisHe saw a Massage Therapist on 12.24.24 and this was also ineffective. He complains of radiating pain down the right leg to the calf, right groin pain, and low back pain. He has also tried compression stockings, heat, tylenol, old hydrocodone that he has had over 1+ year for something unrelated to his back, he has done in home exercises and stretches. He is having difficulty ambulating and rates his pain at a 2/10 at this time because he took hydrocodone at 5am. He states that his pain gets up to 8/10 at night and without the medication for pain. He is desperate for some relief. He is pre diabetic. He are getting x-rays in the office today. CHE3 SHAMIKA EDDY NP [address] [place] [address],[address], [place], [address], [facility] 01/01/2025 12:56:05 5 text/html doing well. No chest pain pressure or tightness. No shortness of breath. Overall feels well. Gerhard Giron MD [address] [place] [address] Drive,[address], [place], [address], [facility] - [facility] & [place] 01/21/2025 13:38:44 5 text/html Patient is here today for MRI results of lumbar spine. Continued pain.01/17/2025- MRI L-spine- IMPRESSION:No acute abnormalities in lumbar spine.Multilevel chronic degenerative changes as above.Disc space narrowing and bilateral neural foraminal stenosis mostsevere at the L3-4 and L4-5 levels and also on the right at the L5-S1 Wilmer Cohen MD [address] [facility],[address], [place], [address], [facility] - [facility] - [place] & [place] 01/24/2025 14:08:11
--- OUTSIDE RECORDS SUMMARY | 2025-03-21 14:30 | XMS_ITS | Data Portability ---
Author Organization ERIN - Sha gagnon MD, Main Office Address [address] , [facility] [address] [place] [address] Care Team Providers Care Pest Control Applicator Name Role Phone RAMIRO WHITE Primary Care Provider [phone] Assessment No assessment recorded. Plan of Treatment [...] By Organization Details Last Modified Time 03/20/2025 [id number] Learning About [facility] for Back Pain [email or web address] Not available 03/20/2025 13:05:32 Reason for Referral [...] SNOMED-CT Code Diagnosis ICD10 Code Diagnosis Note [id number] Sha Aguirre MD Main Office [address] [facility], [facility] [address] [place] [address] 03/20/2025 12:21:59 03/20/2025 13:07:35 Lumbosacral radiculopathy 4660969 M54.17 Moderate acute and chronic right L5/S1 radiculopa thy Health Concerns Section Related Observation LastModified by Organization Brennen lantigua LastModified Time None Recorded Concern Status LastModified by Organization Details LastModified Time None Recorded Advance Directives Directive None Recorded Payers Insurance Date Sequence Insurance Name Policy Number Policy Mac Covered Member ID Mac Member ID Guarantor Name 03/20/2025 1 [place] [id number] Essence Dunlap [id number] Sean Dunlap
--- OUTSIDE RECORDS SUMMARY | 2025-03-21 14:31 | XMS_ITS | Continuity of Care Document ---
Author Organization [facility] Address [address] [place] [address] [place] [address] Care Team Providers Care Scrap Bunch Maker Name Role Phone RAMIRO WHITE Primary Care Provider Assessment No assessment recorded. Plan of Treatment Reminders Order Date Submit Date Provider Last Modified By Organization Details Last Modified Time Details Appointments OV EST 30 025 09:00AM Gerhard Giron MD Not available Not available Not available Lab None record ed. Referral None record ed. Procedures None record ed. Surgeries None record ed. Imaging None record ed. Medication Orders None record ed. Patient TargetsNo targets recorded. Patient InstructionsNo instructions recorded. Reason for Referral None Reported. Results Created Date Observation Date Name Description Value Unit Range Abnormal Flag Note LastModifiedBy Organization Detail LastModifiedTime 01/02/20 25 XR, hip, unila teral No observ ation record ed. acostlizabeth [address] , [place], [address], 01/01/2025 09:32:01 01/11/20 25 01/07/2025 imagi ng/di agnos tic resul t No observ ation record ed. [email or web address] [address] [place], [address], 01/10/2025 15:38:26 01/22/20 25 elect rocar diogr am No observ ation record ed. ELAINE Cheema [address], [place], [address], 01/21/2025 09:03:21 01/22/20 25 01/21/2025 elect simi raza am No observ ation record ed. 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 TENDER,[place] [address] : 1959 Age: 64 Sex: M Acct: [id number] Loc: Jose.MRI PHONE #: Exam Date: 2024 Status : DEP CLI FAX #: [phone] Rad# [id number] Unit# [id number] Admit Date: 2024 EXAMS: CPT CODE: [id number] MRI LUMBAR SPINE W/O CONT [id number] EXAM: MRI LUMBAR SPINE W/O CONT CLINIC [...] L5-S1 PAGE 1 Signed Report (FORREST NUED) [facility] Name: VAUGHN DUNLAP 989 Medica l AccuSilicon Phys: Nunu 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 Electr onical ly signed by: Ozzie Rodriges MD 2024 02:07 PM EDT RP Workst ation: SMICWR [id number] Electr onical ly Signed by OZZIE RODRIGES MD on 2024 at 1403 Report ed and signed by: Yamini RODRIGES MD CC: Rasheed White LOCOMOTIVE ENGINEER; Shamika Louis Nunu LOCOMOTIVE ENGINEER/F HIGH SPEED WARPER TENDER Dictat ed Date/T thor: 2024 (1403) Techno logist : SINCERE JAMESON Transc ribed Date/T thor: 2024 (1403) Transc riptio nist: DR.KIN FRANCISCO rausch Signat ure Date/T thor: 2024 (1403) Printe d Date/T thor: 2024 (1222) BATCH NO: N/A PAGE 2 Signed Report CC'ed Logic: Orderi ng Provid er: NUNU SHAMIKA Attend ing Provid er: NUNU SHAMIKA Referr ing Provid er: NUNU SHAMIKA Consul ting Provid er: CINDY [address] , [place], [address], 01/24/2025 08:51:54 Result Notes None recorded. Problems Name Problem SNOMED Code Status Onset Date Resolution Date Notes Provider Name and Address Organization Details Recorded Time Thyroid hormone tests outside reference range 965931346 Active 2020 Brooke Rodriguez null, [place] - [facility] - [facility] & [place] 5 15:29:50 Anxiety disorder 005720010 Active 2020 Brooke Rodriguez null[place] [facility] & [place] 5 15:29:51 Thyroid nodule 326468957 Active 2020 Brooke Rodriguez [place], [place] [facility] [place] & [place] 5 15:29:51 Vitamin D deficiency 36201310 Active 2020 Brooke Rodriguez [place] [facility] [place] [facility] & [place] 5 15:29:51 Arthritis 7360674 Active Brooke Rodriguez [place] [facility] [place] [facility] & [place] 5 15:29:51 Osteoarthritis 375721823 Active Brooke Rodriguez [place] [facility] [place] [facility] [place] 5 15:29:51 Family history of diabetes mellitus type 2 435950443 Active 2020 Brooke Rodriguez [place] [facility] [place] [facility] [place] 5 15:29:51 Eczema 94574272 Active Brooke Rodriguez [place] [place] & [place] 5 15:29:51 Anxiety 33188393 Active Brooke Rodriguez [place] [place] & [place] 5 15:29:51 Nicotine dependence 63057986 Active 2020 Brooke Rodriguez [place] [place] 5 15:29:51 Acute myocardial infarction of inferior wall 81478712 Active Brooke Rodriguez [place] [place] 5 15:29:51 Kidney stone 75524971 Active Brooke [place] 5 15:29:51 Coronary arterioscleros is 25753820 Active 2020 Brooke Rodriguez [place] [place] 5 15:29:51 Renal artery stenosis 554423841 Active 2021 Gerhard Giron MD [facility] [employer] [facility],[address], [place], [address], [place] [place] & [place] 2 08:42:26 Essential hypertension 63649280 Active 2021 Gerhard Giron MD [address] [place] [address],[address], [address], [place] [place] & [place] 2 08:42:31 Hyperlipidemia 19525233 Active 2021 Gerhard Giron MD [address] [place] [address],[address], [address], [place] [facility] [place] & [place] 2 08:42:38 Tobacco dependence syndrome 08282182 Active 2023 Gerhard Giron MD [address] [place] [address],[address], [address], [place] [place] & [place] 4 09:58:30 Dyspnea on exertion 13153318 Active 2023 Gerhard Giron MD [address] [place] [address],[address], [place], [address], [place] - [facility] - [place] & [place] 4 09:58:30 Notes:Some problems listed i n Document: #[id number] could not be added to this patient's chart. Please review this document and add these problems to the patient's chart manually as needed. Problem Notes None recorded. Procedures Surgical History Date Name Laterality Status Provider Name and Address Organization Details Recorded Time 022 Joint Replacement completed Crystal Earlywine [place] - [facility] - [place] & [place] 04/12/2023 09:06:17 Colonoscopy completed Brooke KHAN - L [facility] - [place] & [place] 10/16/2024 10:15:44 Cardiac Catheterization completed Jailyn KHAN - [facility] - [place] & [place] 09/06/2022 08:45:08 lithotripsy completed Jailyn KHAN - [facility] - [place] & [place] 09/06/2022 08:45:18 operation on hip joint completed Jailyn KHAN - [facility] - [place] & [place] 09/06/2022 08:45:29 Imaging Results None recorded. Procedure Notes None recorded. Medical Equipment None Reported. Allergies Allergen ID Allergen Name Allergen Category Reaction Reaction Severity Criticality Documentation Date Start Date Code Code System Note Provider Name and Address Organization Details Recorded Time 773592 terbinafi ne medicatio n Not available Not available Not available 10/17/20242020 60192 RxNorm Brooke harper, [place] - [facility] & [place] 5 15:29:48 77645 Lamisil medicatio n Not available Not available Not available 09/06/20222011 18862 6 RxNorm Kathy Eliezer leroy, [place] - [facility] - [place] & [place] 5 08:13:13 Medications Name Sig Start Date [...] Not Available Not Available Not Available Vitals None Recorded Social History Question Answer Notes LastModified by Organizat ion Details LastModified Time Tobacco Smoking Status Current Every Day Smoker Jailyn Ward [facility], [facility] & [place] 09/06/2022 08:44:49 Do You Have An Advance Directive? No [email or web address] Information not available 01/21/2025 Are You Blind Or Do You Have Difficulty Seeing? No [email or web address] Information not available 01/21/2025 What Was The Date Of Your Most Recent Tobacco Screening? 10/14/2024 [email or web address] Information not available 01/21/2025 Are You Passively Exposed To Smoke? No Information not available 04/12/2023 How Much Tobacco Do You Smoke? 1 PPD Information not available 04/12/2023 How Many Years Have You Smoked Tobacco? 40 Information not available 04/12/2023 Sex: Male Functional Status Question Answer Note LastModified by Organizat ion Details LastModified Time Do you use any illicit or recreational drugs? No [email or web address] Information not available 09/06/2022 What is your level of alcohol consumption? None [email or web address] Information not available 09/06/2022 Do you or [...] Organization Details LastModified Time Mother Diabetes mellitus [email or web address] Not available 2024 08:51:50 Mother Malignant neoplastic disease [email or web address] Not available 2024 08:51:50 Father Diabetes mellitus [email or web address] Not available 2024 08:51:50 Father Hypertensive disorder [email or web address] Not available 08:44:01 Father Coronary arterioscler osis [email or web address] Not available 2024 08:51:50 Medical History Condition Response Coronary Artery Disease Y Anxiety Disorder Y Heart Attack (DE) Y Hyperlipidemia Y Heart Disease Y Hypertension N Immunizations Vaccine Type Date Status Note Provider Zackery alfredo and Address Organization Details Recorded Time COVID-19, mRNA, LNP-S, PF, 100 mcg/0.5mL dose or 50 mcg/0.25mL dose 0 completed Jailyn Ward null, [place] - [facility] & [place] 09/10/2024 12:04:14 Td (adult), 5 Lf tetanus toxoid, preservative free, adsorbed 9 completed Jailyn Ward [place] & [place] 09/10/2024 12:04:14 Td (adult), 2 Lf tetanus toxoid, preservative free, adsorbed 0 completed Jailyn Ward [place] [facility] [facility] & [place] 09/10/2024 12:04:14 Influenza, split virus, quadrivalent, preservative 9 completed Brooke Rodriguez [place] [facility] & [place] 10/17/2024 15:29:51 Influenza, split virus, quadrivalent, preservative 3 completed Brooke [place] [facility] & [place] 10/17/2024 15:29:51 Influenza, split virus, quadrivalent, preservative 0 completed Brooke [place] [facility] & [place] 10/17/2024 15:29:51 Influenza, split virus, quadrivalent, preservative 6 completed Brooke [place] & [place] 10/17/2024 15:29:51 Influenza, split virus, quadrivalent, preservative 8 completed Brooke [place] & [place] 10/17/2024 15:29:51 zoster recombinant 2 completed Brooke [place] 10/17/2024 15:29:51 zoster recombinant 2 completed Brooke [place] 10/17/2024 15:29:51 SARS-COV-2 (COVID-19) vaccine, UNSPECIFIED 1 completed Brooke [place] 10/17/2024 15:29:51 SARS-COV-2 (COVID-19) vaccine, UNSPECIFIED 1 completed Brooke [place] 10/17/2024 15:29:51 influenza, unspecified formulation 5 completed Brooke [place] 10/17/2024 15:29:51 Influenza, split virus, trivalent, preservative 4 completed Brooek Rodriguez [place] 10/17/2024 15:29:51 Hep B, adolescent or pediatric 5 completed Brooke [place] 10/17/2024 15:29:51 Hep B, adolescent or pediatric 5 completed Brooke [place] 10/17/2024 15:29:51 Hep B, adolescent or pediatric 5 completed Boroke Rodriguez [place] 10/17/2024 15:29:51 Hep B, adult 9 completed Brooke [place] 10/17/2024 15:29:51 Hep B, adult 8 completed Brooke [place] 10/17/2024 15:29:51 Hep B, adult 8 completed Brooke [place] 10/17/2024 15:29:51 Hep A, adult 9 completed Brooke [place] 10/17/2024 15:29:51 tetanus toxoid, adsorbed 2 [facility] [place] & [place] 10/17/2024 15:29:51 Past Encounters Encounter ID Performer Location Encounter Start Date Encounter Closed Date Diagnosis/Indication Diagnosis SNOMED-CT Code Diagnosis ICD10 Code Diagnosis Note [id number] SHAMIKA CLAUDIO NP [facility] [address] [address] 01/01/2025 08:57:24 01/01/2025 10:22:28 Pain of hip region 38798208 M25.551 Lumbar radiculitis 09416 30279 9387569 M54.16 [id number] Gerhard Giron MD [address] HUBBARD [address] [place] [address] 01/21/2025 08:51:40 01/21/2025 09:28:51 Dyspnea on exertion 87837523 R06.09 improved Hyperlipidemia 23600170 E78.5 Coronary arteriosclerosis 91543284 I25.10 Essential hypertension 06094099 I10 Renal artery stenosis 30 7667666 I70.1 History of percutaneous transluminal coronary angioplasty 840161998 Z98.61 [id number] Wilmer Cohen MD Elijah [address] [address] 01/24/2025 08:21:04 01/24/2025 09:02:43 Stenosis of lumbar vertebral foramen 026552318 M48.061 Health Concerns Section Related Observation LastModified by Organization Detai ls LastModified Time None Recorded Concern Status LastModified by Organization Details LastModified Time None Recorded Payers Encounter Date Sequence Insurance Name Policy Number Policy Mac Covered Member ID Mac Member ID Guarantor Name 01/24/2025 1 [employer] [id number] Essence Dunlap [id number] Sean Dunlap Notes Date Note Type Note Provider Name and Address Organization Details Recorded Time 01/24/2025 text/html Patient is here today for MRI results of lumbar spine. Continued pain.01/17/2025- MRI L-spine- IMPRESSION:No acute abnormalities in lumbar spine.Multilevel chronic degenerative changes as above.Disc space narrowing and bilateral neural foraminal stenosis mostsevere at the L3-4 and L4-5 levels and also on the right at the L5-S1 Wilmer Cohen MD [address] [facility],[address], [place], [address], [facility] - [facility] - [place] & [place] 01/24/2025 14:08:11
--- OUTSIDE RECORDS SUMMARY | 2025-03-21 14:31 | XMS_ITS | Data Portability ---
Author Organization [facility] Address [address] [place] [address] Assessment No assessment recorded. Plan of Treatment Reminders Order Date Submit Date Provider Last Modified By Organization Details Last Modified Time Details Appointments None recorded. Lab CMP, serum or plasma 2024 025 [facility], [address], Jaziel F, [place], [address], 5 12:12:57 lipid panel, serum 2024 025 [facility], [address], Jaziel F, [place], [address], 5 12:12:58 BMP, serum or plasma 2024 025 [facility], [address] [place] [address], [address], 5 07:07:16 TSH + free T4, serum 2024 025 [facility], [address] [place] [address], [address], 5 12:07:58 ESR (erythrocyt e sedimentati on rate), blood 2024 025 [facility], [address] [place] [address], [address], 5 12:08:02 C reactive protein, QN, serum or plasma 2024 025 [facility], [address] [place] [address], [address], 5 12:08:02 rf (rheumatoid factor), serum [address], [address], 5 12:08:00 CHRISTIE (antinuclea r antibodies) screen, serum [address], [address], 5 12:08:02 ccp (cyclic citrullinat ed peptide) iga+igg, serum [address], [address], 5 12:08:01 CBC w/ auto diff [address], [address], 5 12:07:58 PSA, serum or plasma [address], [address], 5 12:07:59 HbA1c (hemoglobin A1c), blood [address], [address], 5 12:08:00 vitamin D, 25-hydroxy, total, serum [address], [address], 5 12:08:01 CMP, serum or plasma [address], [address], 5 12:07:59 Referral None recorded. Procedures None recorded. Surgeries None recorded. Imaging XR, lumbar spine, 2 view - flex and ext 2024 [facility], [facility], [address] [place] [address] , [place], [address], 5 08:27:01 XR, knee, 3 view 2024 [facility], [facility], [address] [place] [address] , [place], [address], 5 08:11:47 XR, lumbar spine 2024 [facility], [facility], [address] [place] [address] , [place], [address], 5 08:12:33 XR, hand, 3 or more view 2024 [facility], [facility], [address] [place] [address] , [place], [address], 5 08:12:03 Medication Orders ketoconazol e 2 % topical cream 2024 [facility], [address] [place] [address], [place], [address], 5 12:13:19 alprazolam 1 mg tablet 2024 025 [facility], [address] [place] [address], [place], [address], 5 16:42:05 tramadol 50 mg tablet 2024 025 [facility], [address] [place] [address], [place], [address], 5 08:38:15 Voltaren Arthritis Pain 1 % topical gel 2024 025 [facility], [address] [facility], [place], [address], 09:34:17 Patient TargetsNo targets recorded. Patient InstructionsNo instructions recorded. Reason for Referral None Reported. Results Created Date Observation Date Name Description Value Unit Range Abnormal Flag Note LastModifiedBy Organization Detail LastModifiedTime 12/14/1912/14/2024 TSH+F REE T4 TSH 1.490 uIU/m L 0.450- 4.500 normal Not Available [facility] ([facility]) [address] [place], [address], 12/14/2024 12:07:58 12/14/1912/14/2024 TSH+F REE T4 T4,free(dire ct) 1.23 NG/dL 0.82-1 .77 normal Not Available [facility] ([facility]) [address] [place], [address], 12/14/2024 12:07:58 12/14/1912/14/2024 CBC WITH DIFFE RENTI AL/PL ATELE T WBC 9.8 x10e3 /uL 3.4-10 .8 normal Not Available [facility] ([facility]) [address] [place], [address], 12/14/2024 12:07:58 12/14/1912/14/2024 CBC WITH DIFFE RENTI AL/PL ATELE T RBC 4.89 x10e6 /uL 4.14-5 .80 normal Not Available [facility] ([facility]) [address] [place], [address], 12/14/2024 12:07:58 12/14/1912/14/2024 CBC WITH DIFFE RENTI AL/PL ATELE T hemoglobin 15.3 g/dL 13.0-1 7.7 normal Not Available [facility] ([facility]) [address] [place], [address], 12/14/2024 12:07:58 12/14/19 25 12/14/2024 CBC WITH DIFFE RENTI AL/PL ATELE T hematocrit 44.4 % 37.5-5 1.0 normal Not Available [facility] ([facility]) [address] [place], [address], 12/14/2024 12:07:58 12/14/1912/14/2024 CBC WITH DIFFE RENTI AL/PL ATELE T MCV 91 fL 79-97 normal Not Available [facility] ([facility]) [address] [place], [address], 12/14/2024 12:07:58 12/14/19 25 12/14/2024 CBC WITH DIFFE RENTI AL/PL ATELE T MCH 31.3 pg 26.6-3 3.0 normal Not Available [facility] ([facility]) [address] [place], [address], 12/14/2024 12:07:58 12/14/1912/14/2024 CBC WITH DIFFE RENTI AL/PL ATELE T MCHC 34.5 g/dL 31.5-3 5.7 normal Not Available [facility] ([facility]) [address] [place], [address], 12/14/2024 12:07:58 12/14/1912/14/2024 CBC WITH DIFFE RENTI AL/PL ATELE T RDW 12.4 % 11.6-1 5.4 Not Available [facility] ([facility]) [address] [place], [address], 12/14/2024 12:07:58 12/14/1912/14/2024 CBC WITH DIFFE RENTI AL/PL ATELE T platelets 224 x10e3 /uL 150-45 0 normal Not Available [facility] ([facility]) [address] [place], [address], 12/14/2024 12:07:58 12/14/19 25 12/14/2024 CBC WITH DIFFE RENTI AL/PL ATELE T neutrophils 57 % not estab. normal Not Available [facility] ([facility]) [address], [place], [address], 12/14/2024 12:07:58 12/14/19 25 12/14/2024 CBC WITH DIFFE RENTI AL/PL ATELE T lymphs 32 % not estab. normal Not Available [facility] ([facility]) [address] [facility], [place], [address], 12/14/2024 12:07:58 12/14/19 25 12/14/2024 CBC WITH DIFFE RENTI AL/PL ATELE T monocytes 9 % not estab. normal Not Available [facility] ([facility]) [address] [facility], [place], [address], 12/14/2024 12:07:58 12/14/19 25 12/14/2024 CBC WITH DIFFE RENTI AL/PL ATELE T eos 2 % not estab. normal Not Available [facility] ([facility]) [address] [facility], [place], [address], 12/14/2024 12:07:58 12/14/19 25 12/14/2024 CBC WITH DIFFE RENTI AL/PL ATELE T basos 0 % not estab. 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 0 normal Not Available [facility] ([facility]) [address] [place], [address], 12/14/2024 12:07:58 12/14/19 25 12/14/2024 CBC WITH DIFFE RENTI AL/PL ATELE T lymphs (absolute) 3.2 x10e3 /uL 0.7-3. 1 above high normal Not Available [facility] ([facility]) [address] [place], [address], 12/14/2024 12:07:58 12/14/19 25 12/14/2024 CBC WITH DIFFE RENTI AL/PL ATELE T monocytes(ab solute) 0.9 x10e3 /uL 0.1-0. 9 normal Not Available [facility] ([facility]) [address] [place], [address], 12/14/2024 12:07:58 12/14/19 25 12/14/2024 CBC WITH DIFFE RENTI AL/PL ATELE T eos (absolute) 0.2 x10e3 /uL 0.0-0. 4 normal Not Available [facility] ([facility]) [address] [place], [address], 12/14/2024 12:07:58 12/14/19 25 12/14/2024 CBC WITH DIFFE RENTI AL/PL ATELE T baso (absolute) 0.0 x10e3 /uL 0.0-0. 2 normal Not Available [facility] ([facility]) [address] [place], [address], 12/14/2024 12:07:58 12/14/19 25 12/14/2024 CBC WITH DIFFE RENTI AL/PL ATELE T immature granulocytes 0 % not estab. Not Available [facility] ([facility]) [address] [place], [address], 12/14/2024 12:07:58 12/14/19 25 12/14/2024 CBC WITH DIFFE RENTI AL/PL ATELE T immature grans (abs) 0.0 x10e3 /uL 0.0-0. 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 METAB OLIC PANEL (14) glucose 117 mg/dL 70-99 above high normal Not Available [facility] ([facility]) [address] [facility], [place], [address], 12/14/2024 12:07:59 12/14/19 25 12/14/2024 COMP. METAB OLIC PANEL (14) BUN 17 mg/dL 8-27 normal Not Available [facility] ([facility]) [address] [facility], [place], [address], 12/14/2024 12:07:59 12/14/19 25 12/14/2024 COMP. METAB OLIC PANEL (14) creatinine 0.97 mg/dL 0.76-1 .27 normal Not Available [facility] ([facility]) [address] [facility], [place], [address], 12/14/2024 12:07:59 12/14/19 25 12/14/2024 COMP. METAB OLIC PANEL (14) eGFR 88 mL/mi n/1.7 3 >59 normal Not Available [facility] ([facility]) [address] [place], [address], 12/14/2024 12:07:59 12/14/19 25 12/14/2024 COMP. METAB OLIC PANEL (14) BUN/creatini ne ratio 18 10-24 normal Not Available [facility] ([facility]) [address] [place], [address], 12/14/2024 12:07:59 12/14/19 25 12/14/2024 COMP. METAB OLIC PANEL (14) sodium 140 mmol/ L 134-14 4 normal Not Available [facility] ([facility]) [address] [place], [address], 12/14/2024 12:07:59 12/14/19 25 12/14/2024 COMP. METAB OLIC PANEL (14) potassium 3.9 mmol/ L 3.5-5. 2 normal Not Available [facility] ([facility]) [address] [place], [address], 12/14/2024 12:07:59 12/14/19 25 12/14/2024 COMP. METAB OLIC PANEL (14) chloride 101 mmol/ L 96-106 normal Not Available [facility] ([facility]) [address] [place], [address], 12/14/2024 12:07:59 12/14/19 25 12/14/2024 COMP. METAB OLIC PANEL (14) carbon dioxide, total 21 mmol/ L 20-29 normal Not Available [facility] ([facility]) [address] [place], [address], 12/14/2024 12:07:59 12/14/19 25 12/14/2024 COMP. METAB OLIC PANEL (14) calcium 9.5 mg/dL 8.6-10 .2 normal Not Available [facility] ([facility]) [address] [facility] [place], [address], 12/14/2024 12:07:59 12/14/19 25 12/14/2024 COMP. METAB OLIC PANEL (14) protein, total 7.0 g/dL 6.0-8. 5 normal Not Available [facility] ([facility]) [address] [facility] [place], [address], 12/14/2024 12:07:59 12/14/19 25 12/14/2024 COMP. METAB OLIC PANEL (14) albumin 4.5 g/dL 3.9-4. 9 normal Not Available [facility] ([facility]) [address] [facility], [place], [address], 12/14/2024 12:07:59 12/14/19 25 12/14/2024 COMP. METAB OLIC PANEL (14) globulin, total 2.5 g/dL 1.5-4. 5 Not Available [facility] ([facility]) [address] [facility] [place], [address], 12/14/2024 12:07:59 12/14/19 25 12/14/2024 COMP. METAB OLIC PANEL (14) bilirubin, total 0.3 mg/dL 0.0-1. 2 normal Not Available [facility] ([facility]) [address] [facility] [place], [address], 12/14/2024 12:07:59 12/14/19 25 12/14/2024 COMP. METAB OLIC PANEL (14) alkaline phosphatase 60 IU/L 44-121 normal Not Available [facility] [address] [facility] [place], [address], 12/14/2024 12:07:59 12/14/19 25 12/14/2024 COMP. METAB OLIC PANEL (14) AST (SGOT) 15 IU/L 0-40 normal Not Available [facility] ([facility]) [address] [facility], [place], [address], 12/14/2024 12:07:59 12/14/1912/14/2024 COMP. METAB OLIC PANEL (14) ALT (SGPT) 23 IU/L 0-44 normal Not Available [facility] ([facility]) [address] [facility], [place], [address], 12/14/2024 12:07:59 12/14/1912/14/2024 PSA TOTAL (REFL EX TO FREE) prostate specific Ag 0.2 NG/mL 0.0-4. 0 normal Drea ECLIA metho dolog y. Accor ding to the Ameri can Urolo gical Assoc iatio n, Serum PSA shoul d decre ase and remai n at undet ectab le level s after radic al prost atect lani. The AUA defin es bioch emica l recur rence as an initi al PSA value 0.2 ng/mL or great er follo wed by a subse quent confi rmato ry PSA value 0.2 ng/mL or great er. Value s obtai mo with diffe rent assay metho ds or kits canno t be used inter duong eably . Resul ts canno t be inter prete d as absol chevak evide nce of the prese nce or absen ce of virgil bravo se. Not Available [facility] ([facility]) [address] [facility], [place], [address], 12/14/2024 12:07:59 12/14/1912/14/2024 PSA TOTAL (REFL EX TO FREE) reflex criteria Commen t The perce nt free PSA is perfo rmed on a refle x basis only when the total PSA is betwe en 4.0 and 10.0 ng/mL . Not Available [facility] ([facility]) [address] [facility], [place], [address], 12/14/2024 12:07:59 03/13/20 25 12/14/2024 HEMOG LOBIN A1C hemoglobin A1C 5.8 % 4.8-5. 6 above high normal Predi abete s: 5.7 - 6.4 Diabe xander: >6.4 Glyce karen contr ol for adult s with diabe xander: <7.0 Not Available [facility] ([facility]) [address] [facility], [place], [address], 12/14/2024 12:08:00 12/14/1912/14/2024 RHEUM ATOID FACTO R (RF) rheumatoid factor (rf) <10.0 IU/mL <14.0 Not Available [facility]) [address] [facility], [place], [address], 12/14/2024 12:08:00 12/14/1912/14/2024 VITAM IN D, 25-HY DROXY vitamin D, 25-hydroxy 43.8 NG/mL 30.0-1 00.0 Vitam in D defic iency has been defin ed by the Insti tute of Medic ine and an Endoc rine Socie ty pract ice guide line as a level of serum 25-OH vitam in D less than 20 ng/mL (1,2) . The Endoc rine Socie ty went on to furth er defin e vitam in D insuf ficie ncy as a level betwe en 21 and 29 ng/mL (2). 1. IOM (Inst itute of Medic ine). 2009. Ricardo ry refer ence jonny es for calci um and D. Arnulfo mcdowell [place]: The [facility] . 2. Cathryn zelaya MF, Elissa ey [place], Ludmila off-F errar i YOST, et al. Evalu ation , treat ment, and preve ntion of vitam in D defic iency : an Endoc rine Socie ty clini anupama pract ice guide line. JCEM. 2010; 96(7) :1911 -30. Not Available [facility] ([facility]) [address] [facility], [place], [address], 12/14/2024 12:08:01 12/14/1912/14/2024 ANTI- CCP AB, IGG/I MI anti-ccp Ab, IgG/IgA 6 units 0-19 Negat aaron <20 Weak posit aaron 20 - 39 Moder ate posit aaron 40 - 59 Stron g posit aaron >59 Not Available [facility] ([facility]) [address] [facility], [place], [address], 12/14/2024 12:08:01 12/14/1912/14/2024 ANTIN UCLEA R AB MULTI PLEX RFX 9 CHRISTIE direct Negati ve negati ve Not Available [facility] ([facility]) [address] [facility], [place], [address], 12/14/2024 12:08:01 12/14/19 25 12/14/2024 SEDIM ENTAT ION RATE- WESTE RGREN sedimentatio n rate-westerg ermelinda 3 mm/HR 0-30 normal Not Available [facility] ([facility]) [address] [facility], [place], [address], 12/14/2024 12:08:02 12/14/1912/14/2024 C-ELBERT CTIVE PROTE IN, QUANT C-reactive protein, quant <1 mg/L 0-10 Not Available [facility] ([facility]) [address] [place], [address], 12/14/2024 12:08:02 12/14/1912/14/2024 PLEAS E NOTE please note Commen t The date and/o r time of colle ction was not indic ated on the requi sitio n as requi red by state and reinaldo al law. The date of recei pt of the speci men was used as the colle ction date if not suppl ied. Not Available [facility] ([facility]) [address] [facility], [place], [address], 12/14/2024 12:08:03 01/02/20 25 01/02/2025 BASIC METAB OLIC PANEL (8) glucose 98 mg/dL 70-99 normal Not Available [facility] ([facility]) [address] [facility] [place], [address], 01/02/2025 07:07:16 01/02/20 25 01/02/2025 BASIC METAB OLIC PANEL (8) BUN 16 mg/dL 8-27 normal Not Available [facility] ([facility]) [address] [facility] [place], [address], 01/02/2025 07:07:16 01/02/20 25 01/02/2025 BASIC METAB OLIC PANEL (8) creatinine 0.95 mg/dL 0.76-1 .27 normal Not Available [facility] ([facility]) [address] [place], [address], 01/02/2025 07:07:16 01/02/20 25 01/02/2025 BASIC METAB OLIC PANEL (8) eGFR 90 mL/mi n/1.7 3 >59 normal Not Available [facility] ([facility]) [address] [place], [address], 01/02/2025 07:07:16 01/02/20 25 01/02/2025 BASIC METAB OLIC PANEL (8) BUN/creatini ne ratio 17 10-24 normal Not Available [facility] [address] [place], [address], 01/02/2025 07:07:16 01/02/20 25 01/02/2025 BASIC METAB OLIC PANEL (8) sodium 138 mmol/ L 134-14 4 normal Not Available [facility] ([facility]) [address] [place], [address], 01/02/2025 07:07:16 01/02/20 25 01/02/2025 BASIC METAB OLIC PANEL (8) potassium 4.2 mmol/ L 3.5-5. 2 normal Not Available [facility] ([facility]) [address] [place], [address], 01/02/2025 07:07:16 01/02/20 25 01/02/2025 BASIC METAB OLIC PANEL (8) chloride 101 mmol/ L 96-106 normal Not Available [facility] ([facility]) [address] [facility] [place], [address], 01/02/2025 07:07:16 01/02/20 25 01/02/2025 BASIC METAB OLIC PANEL (8) carbon dioxide, total 21 mmol/ L 20-29 normal Not Available [facility] ([facility]) [address] [facility] [place], [address], 01/02/2025 07:07:16 01/02/20 25 01/02/2025 BASIC METAB OLIC PANEL (8) calcium 9.9 mg/dL 8.6-10 .2 normal Not Available [facility] ([facility]) [address] [facility] [place], [address], 01/02/2025 07:07:16 01/30/20 25 01/30/2025 COMP. METAB OLIC PANEL (14) glucose 99 mg/dL 70-99 normal Not Available [facility] ([facility]) [address] [facility] [place], [address], 01/30/2025 12:12:57 01/30/20 25 01/30/2025 COMP. METAB OLIC PANEL (14) BUN 16 mg/dL 8-27 normal Not Available [facility] ([facility]) [address] [facility] [place], [address], 01/30/2025 12:12:57 01/30/20 25 01/30/2025 COMP. METAB OLIC PANEL (14) creatinine 1.00 mg/dL 0.76-1 .27 normal Not Available [facility] ([facility]) [address] [facility] [place], [address], 01/30/2025 12:12:57 01/30/20 25 01/30/2025 COMP. METAB OLIC PANEL (14) eGFR 85 mL/mi n/1.7 3 >59 normal Not Available [facility] ([facility]) [address] [place], [address], 01/30/2025 12:12:57 01/30/20 25 01/30/2025 COMP. METAB OLIC PANEL (14) BUN/creatini ne ratio 16 10-24 normal Not Available [facility] [address] [place], [address], 01/30/2025 12:12:57 01/30/20 25 01/30/2025 COMP. METAB OLIC PANEL (14) sodium 138 mmol/ L 134-14 4 normal Not Available [facility] ([facility]) [address] [facility], [place], [address], 01/30/2025 12:12:57 01/30/20 25 01/30/2025 COMP. METAB OLIC PANEL (14) potassium 4.4 mmol/ L 3.5-5. 2 normal Not Available [facility] ([facility]) [address] [place], [address], 01/30/2025 12:12:57 01/30/20 25 01/30/2025 COMP. METAB OLIC PANEL (14) chloride 100 mmol/ L 96-106 normal Not Available [facility] ([facility]) [address] [place], [address], 01/30/2025 12:12:57 01/30/20 25 01/30/2025 COMP. METAB OLIC PANEL (14) carbon dioxide, total 24 mmol/ L 20-29 normal Not Available [facility] ([facility]) [address] [place], [address], 01/30/2025 12:12:57 01/30/20 25 01/30/2025 COMP. METAB OLIC PANEL (14) calcium 9.5 mg/dL 8.6-10 .2 normal Not Available [facility] ([facility]) [address] [facility], [place], [address], 01/30/2025 12:12:57 01/30/20 25 01/30/2025 COMP. METAB OLIC PANEL (14) protein, total 7.1 g/dL 6.0-8. 5 normal Not Available [facility] ([facility]) [address] [facility], [place], [address], 01/30/2025 12:12:57 01/30/20 25 01/30/2025 COMP. METAB OLIC PANEL (14) albumin 4.5 g/dL 3.9-4. 9 normal Not Available [facility] ([facility]) [address] [facility], [place], [address], 01/30/2025 12:12:57 01/30/20 25 01/30/2025 COMP. METAB OLIC PANEL (14) globulin, total 2.6 g/dL 1.5-4. 5 Not Available [facility] ([facility]) [address] [facility], [place], [address], 01/30/2025 12:12:57 01/30/20 25 01/30/2025 COMP. METAB OLIC PANEL (14) bilirubin, total 0.6 mg/dL 0.0-1. 2 normal Not Available [facility] ([facility]) [address] [facility], [place], [address], 01/30/2025 12:12:57 01/30/20 25 01/30/2025 COMP. METAB OLIC PANEL (14) alkaline phosphatase 67 IU/L 44-121 normal Not Available [facility] [address] [facility] [place], [address], 01/30/2025 12:12:57 01/30/20 25 01/30/2025 COMP. METAB OLIC PANEL (14) AST (SGOT) 18 IU/L 0-40 normal Not Available [facility] ([facility]) [address] [facility], [place], [address], 01/30/2025 12:12:57 01/30/20 25 01/30/2025 COMP. METAB OLIC PANEL (14) ALT (SGPT) 22 IU/L 0-44 normal Not Available [facility] ([facility]) [address] [place], [address], 01/30/2025 12:12:57 01/30/20 25 01/30/2025 LIPID PANEL cholesterol, total 113 mg/dL 100-19 9 normal Not Available [facility] ([facility]) [address] [place], [address], 01/30/2025 12:12:58 01/30/20 25 01/30/2025 LIPID PANEL triglyceride s 132 mg/dL 0-149 normal Not Available [facility] [address] [place], [address], 01/30/2025 12:12:58 01/30/20 25 01/30/2025 LIPID PANEL HDL cholesterol 25 mg/dL >39 below low normal Not Available [facility] ([facility]) [address] [place], [address], 01/30/2025 12:12:58 01/30/20 25 01/30/2025 LIPID PANEL VLDL cholesterol anupama 24 mg/dL 5-40 Not Available [facility] [address] [place], [address], 01/30/2025 12:12:58 01/30/20 25 01/30/2025 LIPID PANEL LDL chol calc ([facility]) 64 mg/dL 0-99 Not Available [facility] [address] [place], [address], 01/30/2025 12:12:58 01/30/20 25 01/30/2025 LIPID PANEL 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 [address] , [place], [address], 12/18/2024 12:04:24 12/18/19 25 XR, hand, 3 or more view No observ ation record ed. [address] , [place], [address], 12/18/2024 12:04:24 12/18/19 25 XR, hand, 3 or more view No observ ation record ed. [address] , [place], [address], 12/18/2024 12:04:25 12/18/19 25 XR, lumba r spine No observ ation record ed. [address] , [place], [address], 12/18/2024 12:04:25 01/08/[address], hip, w/o contr ast No observ ation record ed. [facility] [address] [facility], [place], [address], 01/10/2025 13:31:03 01/25/20 25 01/17/2025 MRI, lumba r spine , w/o contr ast No observ ation record ed. maura Eddy [employer]NAL [employer] [address] [facility] , [place], [address], 01/29/2025 08:10:49 03/15/20 25 XR, lumba r spine , 2 view No observ ation record ed. [address] , [place], [address], 03/15/2025 08:33:02 Result Notes None recorded. Problems Name Problem SNOMED Code Status Onset Date Resolution Date Notes Provider Name and Address Organization Details Recorded Time Anxiety 83818966 Active Thea Mcgarry null, [place] - [facility] 14:18:00 Arthritis 1402244 Active Thea Cummingsmitt null, [place] - [facility] 14:18:00 Kidney stone 84801489 Active Thea Dummitt null, [place] - [facility] 14:18:00 Eczema 17709215 Active Thea Cumm[place] null, [place] - [facility] 14:18:00 Osteoarthritis [id number] Active Thea Cummings[place] null, [place] - [facility] 14:18:00 Exposure to SARS-CoV-2 Active 2019 Thea Dum[place] null, [place] - [facility] 14:18:00 Family history of diabetes mellitus type 2 [id number] Active 2020 Thea Cumm[place] - [facility] 14:18:00 Anxiety disorder 299607554 Active 2020 Thea Cumm[place] - [facility] 14:18:00 Thyroid hormone tests outside reference range 639315292 Active 2020 Thea Cumm[place] - [facility] 14:18:00 Vitamin D deficiency 04383258 Active 2020 Thea Cumm[place] - [facility] 14:18:00 Nicotine dependence 45027992 Active 2020 Thea Cumm[place] - [facility] 14:18:00 Thyroid nodule 928888890 Active 2020 Thea Cumm[place] - [facility] 14:18:00 Coronary arterioscleros is 31018789 Active 2020 Thea Cumm[place] - [facility] 14:18:00 Acute myocardial infarction of inferior wall 56480030 Active Thea Dummitt null, [place] - [facility] 14:18:00 Problem Notes None recorded. Procedures Surgical History Date Name Laterality Status Provider Name and Address Organization Details Recorded Time 09/03/20 24 Medication Reconcilliation completed Meseret Camacho [place] - [facility] 09/03/2024 10:16:15 11/23/19 23 A1C level 6.9 and below completed Suzanna Estrada [place] - [facility] 11/23/2022 14:06:38 04/23/20 22 Knee Surgery completed Purnima Centeno [place] - [facility] 07/01/2022 12:57:07 10/21/19 Joint Injection completed Sean Salomon MD [address], [place], [address], [place] [facility] 10/21/2021 09:18:57 09/23/20 21 Medication Reconcilliation completed Purnima Centeno [place] - [facility] 09/23/2021 11:11:44 09/19/20 Cardiac Cath completed Purnima Centeno [place] - [facility] 09/23/2021 11:17:54 09/17/20 21 Joint Injection completed Sean Salomon MD [address], [place], [address], [place] [facility] 09/17/2021 16:53:25 06/23/20 21 OMT completed Matt Rivera DO [address], [place], [address], [place] [facility] 06/23/2021 10:30:28 06/09/20 21 OMT completed Matt Rivera DO [address], [place], [address], [place] [facility] 06/09/2021 10:33:46 03/19/20 21 Colonoscopy completed America Barber RN [address], [place], [address], [place] [facility] 04/22/2021 16:41:30 01/28/20 21 Arthrocentesis Joint/Bursa Large completed Grace Moreno [place] - [facility] 01/27/2021 09:20:56 07/29/20 20 Diastolic B/P less than 80 mm Hg completed Suzanna Estrada [place] - [facility] 07/29/2020 15:55:20 07/29/20 20 Systolic B/P greater than or equal to 140 mm Hg completed Suzanna [place]strada [place] [facility] 07/29/2020 15:55:31 01/02/20 20 Diastolic B/P 80-89 mm Hg cancelled Suzanna Estrada [place] [facility] 01/02/2020 16:40:21 01/02/20 20 Systolic B/P 130-139 mm Hg cancelled Suzanna KHAN - [facility] 01/02/2020 16:39:58 01/02/20 20 Diastolic B/P 80-89 mm Hg completed Suzanna KHAN - [facility] 01/02/2020 16:47:28 01/02/20 20 Systolic B/P 130-139 mm Hg completed Suzanna KHAN - [facility] 01/02/2020 16:47:20 03/26/20 19 Arthrocentesis Joint/Bursa Large completed Grace KHAN - [facility] 03/26/2019 14:53:41 01/16/20 19 A1C level 6.9 and below completed Suzanna Estrada [place] [facility] 01/15/2019 09:45:31 03/01/20 18 Arthrocentesis Joint/Bursa Large completed Grace Moreno [place] [facility] 03/01/2018 14:58:03 06/29/20 17 Arthrocentesis Joint/Bursa Large completed Grace Moreno [place] [facility] 06/29/2017 15:10:04 06/09/20 17 I&D completed Sean Salomon MD [address] [place] [address], [address] [place] - [facility] 06/09/2017 16:42:28 Elbow arthroscopy/surgery completed Suzanna KHAN - [facility] 08/02/2016 15:46:33 Knee Surgery completed Suzanna Natalie KH[place] - [facility] 08/02/2016 15:47:58 Kidney endoscopy & treatment completed Suzanna KHAN - [facility] 08/02/2016 15:48:32 ENT Surgery completed Felicitas Mendiola [place] - [facility] 07/17/2019 08:34:19 Imaging Results None recorded. Procedure Notes None recorded. Medical Equipment None Reported. Allergies Allergen ID Allergen Name Allergen Category Reaction Reaction Severity Criticality Documentation Date Start Date Code Code System Note Provider Name and Address Organization Details Recorded Time [id number] terbinafi ne medicatio n Not available Not available Not available 03/20/20212020 02637 RxNorm Sever [facility] Luana Chrystal null, [place] - [facility] 1 09:41:44 64589 Lamisil medicatio n Not available Not available Not available 07/09/20162011 00815 6 RxNorm unkno laurita Estrada null, [place] - [facility] 1 08:37:23 Medications Name Sig Start Date Stop Date Status Note LastModified by Organization Details LastModified Time amoxicill in 500 mg capsule TAKE FOUR (4) CAPSULES BY ORAL ROUTE. active takes when he goes to dentist Not Available Not Available Not Available atorvasta tin 40 mg tablet TAKE ONE (1) TABLET EVERY DAY BY ORAL ROUTE DIRECTED active Not Available Not Available No t Available atorvasta tin 80 mg tablet Take 1 tablet every day by oral route. 12/24 completed Not Available Not Available Not Available prednison e 10 mg tablet TAKE ONE (1) TABLET TWICE A DAY BY ORAL ROUTE FOR FIVE (5) DAYS. 01/01 completed Not Available Not Available Not Available nicotine 14 mg/24 hr daily transderm al patch APPLY ONE (1) PATCH EVERY DAY 12/24 completed Not Available Not Available Not Available Depo-Medr ol 40 mg/mL suspensio n for injection Take 2 mL by injectio n route. 07/29 completed Not Available Not Available Not Available Zyrtec-D 5 mg-120 mg tablet,ex tended release take 1 tablet by oral route daily 02/11 completed Zyrtec-D 5-120 mg oral tablet extended release 12 hr;Presc ribe Status: Prescrib ed on: 01/09/20 13 12:00AM; Disconti nued Status: Disconti nued on: 02/12/20 14 11:44AM; User: ant quiroz;Est. Completi on: 01/23/20 13;Pharm acyVcristian ied: 01/09/20 13 5:56PM Not Available Not Available Not Available ketoconaz ole 200 mg tablet Take 1 tablet every day by oral route for 10 days. 01/15 completed Not Available Not Available Not Available azithromy isrrael 250 mg tablet TAKE 2 TABLETS TODAY THEN TAKE 1 TABLET DAILY FOR THE NEXT 4 DAYS BY MOUTH 09/03 /2024 completed Not Available Not Available Not Available alprazola m 1 mg tablet TAKE ONE (1) TABLET EVERY DAY BY ORAL ROUTE NEEDED FOR 30 DAYS. active Not Available Not Available No t Available hydrocodo ne 5 mg-acetam inophen 325 mg tablet 07/17 completed Not Available Not Available Not Available gretienne latonia microsize 500 mg tablet TAKE ONE (1) TABLET BY MOUTH TWICE DAILY 03/05 completed Not Available Not Available Not Available Elidel 1 % topical cream APPLY A THIN LAYER TO THE AFFECTED AREA(S) BY TOPICAL ROUTE 2 TIMES PER DAY ; RUB IN GENTLY AND COMPLETE LY 03/26 completed Not Available Not Available Not Available naproxen 250 mg tablet take 2 tablet (250 mg) by oral route 1 times per day with food 09/23 completed naproxen 250 mg oral tablet;R ecorded Status: Recorded on: 05/11/20 16 8:54AM;U ser: [email or web address] Not Available Not Available Not Available promethaz ine 6.25 mg-codein e 10 mg/5 mL syrup take 5 millilit ers by oral route every 6 hours as needed, not to exceed 30 mL in 24 hours 07/03 completed prometha zine-cod eine 6.25-10 mg/5 mL oral syrup;Re corded Status: Recorded on: 06/06/20 15 9:17AM;D iscontin ued Status: Disconti nued on: 07/03/20 15 9:12AM;U ser: meyerst; Indicati on: Cough - ([phone] 00) Not Available Not Available Not Available clopidogr el 75 mg tablet TAKE ONE (1) TABLET BY MOUTH EVERY DAY active Not Available Not Available No t Available Motrin 100 mg tablet 1 tab a day 01/14 completed Motrin 100 mg oral tablet;R ecorded Status: Recorded on: 08/05/20 08 9:38AM;D iscontin ued Status: Disconti nued on: 01/15/20 09 4:28PM;U ser: [email or web address] Not Available Not Available Not Available omeprazol e 40 mg capsule,d elayed release TAKE 1 CAPSULE BY MOUTH EVERY DAY 09/23 completed Not Available Not Available Not Available aspirin 81 mg tablet,de layed release TAKE 1 TABLET BY MOUTH TWICE DAILY START AT 7AM DAY AFTER SURGERY 07/01 completed Not Available Not Available Not Available tramadol 50 mg tablet TAKE ONE (1) TABLET TWICE A DAY BY ORAL ROUTE FOR THREE (3) DAYS, FOR HIP PAIN. 01/29 completed Not Available Not Available Not Available Depo-Medr ol 80 mg/mL suspensio n for injection 2 ml injected intra-ar ticular today by provider 07/29 completed Not Available Not Available Not Available Kenalog 40 mg/mL suspensio n for injection Take 2 mL by injectio n route. 12/24 completed Not Available Not Available Not Available cefadroxi l 500 mg capsule TAKE 1 CAPSULE BY MOUTH TWICE DAILY 07/01 completed Not Available Not Available Not Available oxycodone -acetamin ophen 5 mg-325 mg tablet TAKE 1 TABLET BY MOUTH EVERY FOUR (4) HOURS NEEDED FOR PAIN 07/01 completed Not Available Not Available Not Available terbinafi ne HCl 250 mg tablet TAKE ONE (1) TABLET EVERY DAY BY ORAL ROUTE FOR 30 DAYS. 02/08 completed Not Available Not Available Not Available Diflucan 100 mg tablet take 1 tablet (100 mg) by oral route once daily for 7 days 05/04 completed Diflucan 100 mg oral tablet;P rescribe Status: Prescrib ed on: 12/09/19 16 4:41PM;D iscontin ued Status: Disconti nued on: 05/04/20 16 3:46PM;U ser: woodst;E st. Completi on: 12/16/19 16;Pharm acyVerif ied: 12/09/19 16 4:41PM Not Available Not Available Not Available Celexa 20 mg tablet Take 1 tablet every day by oral route for 30 days. 09/14 completed Not Available Not Available Not Available benzonata te 100 mg capsule TAKE ONE (1) CAPSULE THREE (3) TIMES A DAY BY ORAL ROUTE NEEDED FOR FIVE (5) DAYS, FOR COUGH. 06/12 completed Not Available Not Available Not Available cephalexi n 500 mg capsule TAKE ONE (1) CAPSULE THREE (3) TIMES DAILY UNTIL GONE. TAKE WITH FOOD. 06/05 completed Not Available Not Available Not Available erythromy isrrael 5 mg/gram (0.5 %) eye ointment APPLY SMALL AMOUNT INTO THE LEFT EYE THREE (3) TIMES DAILY 09/17 completed Not Available Not Available Not Available oseltamiv ir 75 mg capsule TAKE ONE (1) CAPSULE (75 MG) BY ORAL ROUTE TWO (2) TIMES PER DAY FOR FIVE (5) DAYS 06/12 completed Not Available Not Available Not Available Cipro 500 mg tablet take 1 tablet (500 mg) by oral route 2 times per day 07/03 completed Cipro 500 mg oral tablet;P rescribe Status: Prescrib ed on: 06/06/20 15 9:39AM;D iscontin ued Status: Disconti nued on: 07/03/20 15 9:12AM;U ser: meyerst; Indicati on: Bronchit is, Acute - (466.0); Pharmacy Verified : 06/06/20 15 9:39AM Not Available Not Available Not Available clotrimaz ole-betam ethasone 1 %-0.05 % topical cream APPLY TO THE AFFECTED AND SURROUND ING AREAS OF SKIN BY TOPICAL ROUTE 2 x daily 06/09 completed Not Available Not Available Not Available clotrimaz ole 1 % topical solution APPLY TO THE AFFECTED AND SURROUND ING AREAS OF SKIN BY TOPICAL ROUTE 2 TIMES PER DAY IN THE MORNING AND EVENING 03/26 completed Not Available Not Available Not Available nitroglyc prisca 400 mcg/spray transling ual PLACE ONE (1) SPRAY (0.4 MG) BY TRANSLIN GUAL ROUTE ONTO OR UNDER THE TONGUEAT THE FIRST SIGN OF AN ATTACK; NO MORE THAN THREE (3) SPRAYS/1 5 MINUTE PERIOD active Not Available Not Available No t Available nitroglyc prisca 0.4 mg sublingua l tablet PLACE ONE (1) TABLET NEEDED BY SUBLINGU AL ROUTE DIRECTED . active Not Available Not Available No t Available omeprazol e 20 mg capsule,d elayed release TAKE 1 CAPSULE BY MOUTH EVERY DAY active Not Available Not Available No t Available zinc 50 mg tablet 1 or 2 times a week 2018 active Not Available Not Available Not Avai lable dexametha sone sodium phosphate 4 mg/mL injection solution Inject 4 mg by intramus cular route. 12/13 completed Not Available Not Available Not Available Anusol-HC 25 mg rectal supposito ry insert 1 supposit ory (25 mg) by rectal route 2 times per day for 6 days 02/11 completed Anusol-H C 25 mg rectal supposit ory;Kael rded Status: Recorded on: 11/08/19 13 4:34PM;D iscontin ued Status: Disconti nued on: 02/12/20 14 11:44AM; User: soham; Est. Completi on: 11/20/19 13;Indic ation: Hemorrho ids - () Not Available Not Available Not Available methylpre dnisolone 4 mg tablets in a dose pack Take 1 dose pk by oral route as directed . 02/14 completed Not Available Not Available Not Available ketoconaz ole 2 % topical cream APPLY CREAM TO THE AFFECTED AREA(S) EVERY NIGHT AT BEDTIME active Not Available Not Available No t Available ondansetr on 4 mg disintegr ating tablet 07/17 completed Not Available Not Available Not Available cefdinir 300 mg capsule take 1 capsule (300 mg) by oral route every 12 hours for 10 days 05/21 completed cefdinir 300 mg oral capsule; Recorded Status: Recorded on: 05/11/20 16 10:05AM; User: asher; Est. Completi on: 05/21/20 16;Print ed: 05/11/20 16 Not Available Not Available Not Available fluticaso ne propionat e 50 mcg/actua tion nasal spray,toshia pension INHALE ONE (1) SPRAY (50 MCG) IN EACH NOSTRIL BY INTRANAS AL ROUTE TWO (2) TIMES PER DAY FOR 7 DAYS 01/29 completed Not Available Not Available Not Available lisinopri l 2.5 mg tablet TAKE ONE (1) TABLET BY MOUTH EVERY DAY active Not Available Not Available No t Available amoxicill in 875 mg-potass ium clavulana te 125 mg tablet take 1 tablet by oral route every 12 hours for 10 days 02/14 completed Not Available Not Available Not Available Bactrim DS 800 mg-160 mg tablet Take 2 tablets every 12 hours by oral route. 09/19 completed Not Available Not Available Not Available Anusol-HC rectal cream apply tid 02/11 completed anusol hc cream standard ;Recorde d Status: Recorded on: 11/08/19 13 4:34PM;D iscontin ued Status: Disconti nued on: 02/12/20 14 11:44AM; User: henry Est. Completi on: 11/18/19 13;Indic ation: rectal pain - (-5) Not Available Not Available Not Available metoprolo l tartrate 25 mg tablet Take 1 tablet twice a day by oral route. 10/21 completed Not Available Not Available Not Available pregabali n 75 mg capsule TAKE ONE (1) CAPSULE BY MOUTH EVERY NIGHT AT BEDTIME FOR ONE WEEK, THEN TWICE DAILY THEREAFT ER active Not Available Not Available No t Available Mucinex D 60 mg-600 mg tablet,ex tended release take 1 tablet by oral route every 12 hours as needed for 10 days 05/25 completed Mucinex D 60-600 mg oral tablet extended release 12 hr;Recor ded Status: Recorded on: 11/27/19 10 11:22AM; Disconti nued Status: Disconti nued on: 05/25/20 10 11:02AM; User: raf MotleyEst. Completi on: 12/28/19 10;Indic ation: Nasal Congesti on - (08.4781 00);Prin karo: 11/27/19 10 Not Available Not Available Not Available Hilliards 1 qhs 07/03 completed norco 5/325mg; Recorded Status: Recorded on: 12/31/19 15 8:54AM;D iscontin ued Status: Disconti nued on: 07/03/20 15 9:12AM;U ser: ant garzaEst. Completi on: 01/21/20 15;Indic ation: - (-5) Not Available Not Available Not Available loratadin e 10 mg q day 01/15 completed Not Available Not Available Not Available Flonase 1 spray bid 01/08 completed flonase; Recorded Status: Recorded on: 01/09/20 13 4:11PM;D iscontin ued Status: Disconti nued on: 01/09/20 13 4:33PM;U ser: corinbe gabriella;Est. Completi on: 01/23/20 13;Indic ation: - (-5) Not Available Not Available Not Available garlic 1 q day 07/17 completed Not Available Not Available Not Available vitamin B complex 1 or 2 times a week 05/12 completed Not Available Not Available Not Available Diflucan 1 qd 12/08 completed diflucan 100 mg;Recor ded Status: Recorded on: 12/09/19 16 4:33PM;D iscontin ued Status: Disconti nued on: 12/09/19 16 4:40PM;U ser: ant quiroz;Est. Completi on: 12/16/19 16;Indic ation: - (-5) Not Available Not Available Not Available tramadol one q 4 hrs prn. 12/30 completed tramadol 50 mg.;Kael rded Status: Recorded on: 02/12/20 14 11:44AM; Disconti nued Status: Disconti nued on: 12/31/19 15 8:54AM;U ser: soham; Est. Completi on: 05/12/20 14;Indic ation: knees - (-5) Not Available Not Available Not Available naproxen 1 tab bid 02/11 completed naproxen Oral;Rec orded Status: Recorded on: 12/24/19 12 3:50PM;D iscontin ued Status: Disconti nued on: 02/12/20 14 11:44AM; User: [email or web address] Not Available Not Available Not Available Atarax Take 1 tablet by oral route three times a day for 10 days 07/03 completed atarax Oral oral 10mg;Rec orded Status: Recorded on: 10/09/19 13 3:09PM;D iscontin ued Status: Disconti nued on: 07/03/20 15 9:12AM;U ser: ant quiroz;Est. Completi on: 12/09/19 13 Not Available Not Available Not Available Temovate Apply 1 a small amount by topical route at bedtime for 10 days 07/03 completed temovate Topical cream .05%;Rec orded Status: Recorded on: 10/09/19 13 3:09PM;D iscontin ued Status: Disconti nued on: 07/03/20 15 9:12AM;U ser: ant quiroz;Est. Completi on: 11/18/19 13 Not Available Not Available Not Available Keflex 1 bid 01/14 completed keflex;R ecorded Status: Recorded on: 09/30/20 08 12:55PM; Disconti nued Status: Disconti nued on: 01/15/20 09 4:28PM;U ser: ant quiroz;Est. Completi on: 10/10/19 09;Indic ation: - (-5) Not Available Not Available Not Available Lotrisone apply bid 11/27 completed lotrison e;Record ed Status: Recorded on: 09/12/20 09 3:31PM;D iscontin ued Status: Disconti nued on: 11/27/19 10 11:05AM; User: ant quiroz;Est. Completi on: 10/24/19 10;Indic ation: - (-5);Josee nted: 09/12/20 09 Not Available Not Available Not Available Avelox 1 qd 11/27 completed avelox 400mg;Re corded Status: Recorded on: 01/15/20 09 5:03PM;D iscontin ued Status: Disconti nued on: 11/27/19 10 11:05AM; User: ant quiroz;Est. Completi on: 01/25/20 09;Indic ation: - (-5);Josee nted: 01/15/20 09 Not Available Not Available Not Available Mobic one bid with food 07/03 completed mobic 7.5 mg.;Kael rded Status: Recorded on: 07/12/20 12 11:32AM; Disconti nued Status: Disconti nued on: 07/03/20 15 9:12AM;U ser: soham; Est. Completi on: 07/22/20 12;Indic ation: strain - (-5) Not Available Not Available Not Available Hydrocodo ne 1 q12h prn mary ann 03/29 completed hydrocod one 5 mg;Recor ded Status: Recorded on: 09/28/20 11 2:58PM;D iscontin ued Status: Disconti nued on: 03/29/20 12 3:55PM;U ser: ant quiroz;Est. Completi on: 10/28/19 12;Indic ation: None Selected - (-5) Not Available Not Available Not Available Zyrtec D 1 qd 01/08 completed zyrtec d;Record ed Status: Recorded on: 01/09/20 13 4:11PM;D iscontin ued Status: Disconti nued on: 01/09/20 13 4:33PM;U ser: ant quiroz;Est. Completi on: 01/23/20 13;Indic ation: - (-5) Not Available Not Available Not Available Engerix-B (PF) 20 mcg/mL intramusc ular syringe 04/16 completed Not Available Not Available Not Available Engerix-B (PF) 20 mcg/mL intramusc ular suspensio n 04/16 completed Not Available Not Available Not Available diclofena c 1 % topical gel APPLY TWO (2) GRAMS TO THE AFFECTED AREA(S) BY TOPICAL ROUTE FOUR (4) TIMES PER DAY active Not Available Not Available No t Available cholecalc iferol (vitamin D3) 50 mcg (2,000 unit) tablet TAKE 1 TABLET BY MOUTH EVERY DAY 02/08 completed Not Available Not Available Not Available [...] Available olive leaf extract 250 mg capsule sometime s 09/17 completed Not Available Not Available Not Available AndroGel 20.25 mg/1.25 gram per pump act. (1.62 %) transderm al gel Apply 4 pumps every day by transder mal route for 30 days. 09/14 completed Not Available Not Available Not Available Brilinta 90 mg tablet Take 1 tablet twice a day by oral route. 12/24 completed Not Available Not Available Not Available Eucrisa 2 % topical ointment 10/18 completed Not Available Not Available Not Available Sutab 1.479-0.1 88-0.225 gram tablet USE DIRECTED 09/23 completed Not Available Not Available Not Available aspirin 81 mg capsule Take 1 capsule every day by oral route. 04/14 completed Not Available Not Available Not Available Vitals Date Recorded Body height Body mass index (BMI) Body weight Body temperature Heart rate Oxygen saturation Oxygen saturation in Arterial blood by Pulse oximetry Respiratory rate Systolic blood pressure Diastolic blood pressure Provider Name and Address Organization Details Last Updated DateTime 5 176.53 cm 25.2 kg/m2 64707.4 8 g 98.1 [degF] 66 /min 96 % 96 % 18 /min 130 mm[Hg] 72 mm[Hg] Lisa Benson [place] - [facility] 08:31:01 Date Recorded Body height Respiratory rate Body mass index (BMI) Body weight Heart rate Oxygen saturation Oxygen saturation in Arterial blood by Pulse oximetry Body temperature Systolic blood pressure Diastolic blood pressure Provider Name and Address Organization Details Last Updated DateTime 5 176.53 cm 18 /min 24.7 kg/m2 93074.7 g 82 /min 97 % 97 % 97.9 [degF] 160 mm[Hg] 80 mm[Hg] Meseret Stears [place] - [facility] 5 15:48:43 Date Recorded Body height Heart rate Oxygen saturation Oxygen saturation in Arterial blood by Pulse oximetry Respiratory rate Systolic blood pressure Diastolic blood pressure Provider Name and Address Organization Details Last Updated DateTime 5 176.53 cm 67 /min 97 % 97 % 18 /min 140 mm[Hg] 82 mm[Hg] Lisa Benson [place] - [facility] 08:07:54 Date Recorded Body height Body mass index (BMI) Body weight Heart rate Oxygen saturation Oxygen saturation in Arterial blood by Pulse oximetry Respiratory rate Systolic blood pressure Diastolic blood pressure Provider Name and Address Organization Details Last Updated DateTime 5 176.53 cm 24.6 kg/m2 54013.1 1 g 83 /min 98 % 98 % 18 /min 144 mm[Hg] 82 mm[Hg] Lisa Benson [place] - [facility] 5 15:49:24 Date Recorded Body height Body mass index (BMI) Body weight Heart rate Oxygen saturation Oxygen saturation in Arterial blood by Pulse oximetry Respiratory rate Systolic blood pressure Diastolic blood pressure Provider Name and Address Organization Details Last Updated DateTime 5 176.53 cm 24.6 kg/m2 66159.1 1 g 68 /min 98 % 98 % 16 /min 132 mm[Hg] 62 mm[Hg] Karyn Padgett [place] - [facility] 5 11:29:34 Social History Question Answer Notes LastModified by Organization Details LastModified Time Tobacco Smoking Status Current Every Day Smoker Not Available [facility] 07/18/2020 03:13:30 Able To Swim? No Information not available 2016 Do You Have An Advance Directive? No [id number] Information not available 07/18/2020 Do You Wear A Helmet When Biking? No [id number] Information not available 07/18/2020 Are You Blind Or Do You Have Difficulty Seeing? No [id number] Information not available 07/18/2020 What Is Your Level Of Caffeine Consumption? Moderate [id number] Information not available 07/18/2020 How Much Tobacco Do You Chew? None [id number] Information not available 07/18/2020 Are You Deaf Or Do You Have Serious Difficulty Hearing? No [id number] Information not available 07/18/2020 What Type Of Diet Are You Following? REGULAR [id number] Information not available 07/18/2020 Which Illicit Or Recreational Drugs Have You Used? None [id number] Information not available 07/18/2020 What Is The Highest Grade Or Level Of School You Have Completed Or The Highest Degree You Have Received? [id number] Information not available 05/12/2023 Swimming/diving No Informati on not available 2016 Have There Been Any Changes To Your Family Or Social Situation? No Information not available 09/17/2021 What Is The Fluoride Status Of Your Home? Fluoridated Information not available 09/17/2021 Hard Of Hearing Or Deaf In One Or Both Ears? No Information not available 2016 Legally Blind In One Or Both Eyes? No Information not available 2016 Live Alone Or With Others? With Others Information not available 2016 What Was The Date Of Your Most Recent Tobacco Screening? 12/11/2024 Information not available 12/11/2024 How Many Children Do You Have? 2 [id number] Information not available 07/18/2020 What Is Your Current Pack Years? 30ormorepackye ars [id number] Information not available 07/18/2020 Do You Use Protection During Sex? No [id number] Information not available 07/18/2020 Do You Use Protection Against STDs? No Information not available 05/12/2023 What Is Your Relationship Status? [id number] Information not available 07/18/2020 Seat Belts Used Routinely Yes Information not available 2016 Are You Sexually Active? Yes [id number] Information not available 07/18/2020 Smoke Alarm In Home No Information not available 2016 Do You Have Smoke And Carbon Monoxide Detectors In Your Home? Yes Information not available 09/17/2021 At What Age Did You Start Smoking Tobacco? 18 [id number] Information not available 07/18/2020 Are You Passively Exposed To Smoke? Yes [id number] Information not available 07/18/2020 How Much Tobacco Do You Smoke? 1 PPD 15 Ciggarettes Per Day bstears Information not available 02/09/2024 General Stress Level High Information not available 2016 Do You Use Sunscreen Routinely? No [id number] Information not available 07/18/2020 Has Tobacco Cessation Counseling Been Provided? Yes Information not available 09/17/2021 On What Date Was Tobacco Cessation Counseling Provided? 12/11/2024 Information not available 12/11/2024 How Many Years Have You Smoked Tobacco? 45 [email or web address] Information not available 02/09/2024 Do You Have Difficulty Walking Or Climbing Stairs? No [id number] Information not available 07/18/2020 Sex: Male Functional Status Question Answer Note LastModified by Organizat ion Details LastModified Time Do you or have you ever used smokeless tobacco? Never used smokeless tobacco [id number] Information not available 07/18/2020 Are you currently employed? Yes [id number] Information not available 07/18/2020 Do you have transportation difficulties? No Information not available 09/17/2021 Are you able to care for yourself? Yes [id number] Information n ot available 07/18/2020 Do you have difficulty dressing or bathing? No [id number] Information not available 07/18/2020 Do you or have you ever used e-cigarettes or vape? Never used electronic cigarettes [id number] Information not available 07/18/2020 What is your exercise level? None [id number] Information not available 07/18/2020 Do you use any illicit or recreational drugs? No Information not available 09/17/2021 Do you or have you ever used any other forms of tobacco or nicotine? No Information not available 09/17/2021 What is your level of alcohol consumption? None [id number] Information not available 07/18/2020 Are you able to walk? YESWOREST [id number] Information not available 07/18/2020 Do you have difficulty doing errands alone? 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 [id number] Information not available 09/17/2021 Do you have difficulty concentrating, remembering or making decisions? No [id number] Information no t available 07/18/2020 Family History Relationship Description Onset Age of this Age Resolved Age Notes LastModified by Organization Details LastModified Time Unspecified Relation Alzheimer's disease Not available 2015 15:50:24 Unspecified Relation Type 2 diabetes mellitus Not available 2015 15:51:07 Mother Arthritis Not availabl e 08/02/2016 15:50:37 Mother Cataract Not available 08/02/2016 15:50:48 Father Hypertensive disorder Not available 2015 15:51:18 Father Heart disease Not available 2015 15:51:51 Sister Malignant melanoma Not available 2015 15:51:41 Medical History Condition Response Anxiety Disorder Y Osteoarthritis Y Arthritis Y Kidney Stones Y Hyperthyroidism Y Eczema Y Immunizations Vaccine Type Date Status Note Provider Nam e and Address Organization Details Recorded Time zoster recombinant 2 completed Not Available [facility] 03/04/2025 15:39:34 Influenza, split virus, quadrivalent, preservative 0 completed Jacquelyn Justice null, [place] - [facility] 09/16/2020 10:07:30 Hep B, adolescent or pediatric 5 completed Lisa Benson null, [place] - [facility] 10/20/2023 09:05:14 Hep B, adolescent or pediatric 5 completed Lisa Benson null, [place] - [facility] 10/20/2023 09:05:14 Hep B, adolescent or pediatric 5 completed Lisa Benson [place] - [facility] 10/20/2023 09:05:14 influenza, unspecified formulation 5 completed Lisa Benson null, [place] - [facility] 10/20/2023 09:05:14 tetanus toxoid, adsorbed 2 completed Lisa Benson [place], [place] - [facility] 10/20/2023 09:05:14 zoster recombinant 2 completed Purnima Centeno null, [place] - [facility] 12/24/2021 11:38:59 Influenza, split virus, quadrivalent, preservative 3 completed Meseret Camacho null, [place] - [facility] 09/06/2023 10:33:09 Influenza, split virus, trivalent, preservative 4 completed Meseret Camacho [place] - [facility] 09/10/2024 11:57:05 Hep B, adult 8 completed Not Available [facility] 10/20/2019 03:55:07 Influenza, split virus, quadrivalent, preservative 6 completed Not Available [facility] 10/20/2019 03:54:20 SARS-COV-2 (COVID-19) vaccine, UNSPECIFIED 1 completed Lisa Benson null, [place] - [facility] 10/20/2023 09:05:14 SARS-COV-2 (COVID-19) vaccine, UNSPECIFIED 1 completed Lisa Benson null, [place] - [facility] 10/20/2023 09:05:14 Hep B, adult 8 completed Not Available [facility] 10/20/2019 03:55:07 Influenza, split virus, quadrivalent, preservative 8 completed Not Available [facility] 10/20/2019 03:55:28 Hep B, adult 9 completed Not Available [facility] 10/20/2019 03:56:08 Hep A, adult 9 completed Not Available [facility] 10/20/2019 03:56:04 zoster recombinant 2 completed Meseret Camacho null, [place] - [facility] 09/06/2023 10:29:25 Influenza, split virus, quadrivalent, preservative 9 completed Not Available [facility] 10/20/2019 03:56:15 Past Encounters Encounter ID Performer Location Encounter Start Date Encounter Closed Date Diagnosis/Indication Diagnosis SNOMED-CT Code Diagnosis ICD10 Code Diagnosis Note [id number] Yaneth Pineda APRN [address] [place] [address] 2016 10:18:12 2016 13:22:09 Nicotine dependence 12638080 F17.200 Candidiasis of skin 4988 3006 B37.2 Depressive disorder 3548 9007 F33.9 Anxiety disorder 6214145 06 F41.9 Fatigue 54590254 R53.83 Nocturia 464513826 R35.1 Vitamin B1 2 deficiency (non anemic) 46861489 E53.8 Vitamin D deficiency 347 81990 E55.9 [id number] Yaneth Pineda [address] [place] [address] 09/14/2016 10:47:30 09/14/2016 11:31:56 Candidiasis of skin 23235621 B37.2 Anxiety disorder 9035818 06 F41.9 Vitamin B1 2 deficiency (non anemic) 04845439 E53.8 Testostero ne level below reference range 686401725 R79.89 [id number] Yan Naylor DO [address] [place] [address] 09/17/2016 11:34:04 09/17/2016 11:42:16 Administration of influenza vaccine 19605107 Z23 [id number] Yaneth Pineda [address] [place] [address] 03/15/2017 08:13:20 03/15/2017 09:46:48 Vaccine declined by patient 2543434508 02 Z28.21 Anxiety disorder 7610725 06 F41.9 Thyroid ho rmone tests outside reference range 562990648 R94.6 Screening for malignant neoplasm of colon 705227348 Z12.11 Fatigue 91049748 R53.83 Candidiasis of skin 4988 3006 B37.2 Adverse re action to drug 36246341 T45.95XA [id number] Sean Salomon MD [address] [place] [address] 06/09/2017 15:59:00 06/09/2017 16:43:38 Cellulitis and abscess of face 665501086 L02.01 Body mass index 25-29 - overweight 844370116 Z68.25 [id number] Grace Moreno PA-C [address] [place] [address] 06/29/2017 14:03:18 06/29/2017 15:16:43 Osteoarthritis 204360843 M19.90 Knee joint effusion 2023 90726 M25.713 [id number] Yaneth Pineda [address] [place] [address] 09/19/2017 08:51:11 09/19/2017 11:34:42 Anxiety disorder 873557638 F41.9 Thyroid ho rmone tests outside reference range 596828004 R94.6 Nocturia 427824147 R35.1 Thyroid nodule 679148340 E04.1 Nicotine dependence 5629 4008 F17.200 Eczema 03549340 L30.9 Family his tory of diabetes mellitus type 2 795672899 Z83.3 Fatigue 20845217 R53.83 Acute sinusitis 59470795 J01.90 [id number] Isacc Garcia MD [address] [place] [facility] 02/14/2018 15:43:55 02/14/2018 16:18:23 Infection of sebaceous cyst 917000945 L72.3 [id number] Grace Moreno PA-C [address] [place] [address] 03/01/2018 13:44:35 03/01/2018 14:48:46 Osteoarthritis of knee 658143880 M17.11 [id number] Yaneth Pineda [address] [place] [address] 07/11/2018 14:42:51 07/11/2018 15:45:25 Requires course of hepatitis B vaccination 991657268 Z.3 Anxiety disorder F41.9 Thyroid ho rmone tests outside reference range 099565987 R94.6 Screening for malignant neoplasm of colon 548125700 Z12.11 Vitamin D deficiency 347 74657 E55.9 Nicotine dependence 5629 4008 F17.639 [id number] Yaneth Pineda [address] [place] [address] 08/14/2018 14:33:39 08/14/2018 15:28:40 Requires course of hepatitis B vaccination 828467147 Z28.3 Anxiety disorder F41.9 Thyroid ho rmone tests outside reference range 812399449 R94.6 Vitamin D deficiency 347 72252 E55.9 Nicotine dependence 5629 4008 F17.239 [id number] Sean Salomon MD [address] [place] [address] 09/21/2018 14:57:47 09/21/2018 15:42:59 Administration of influenza vaccine 45587754 Z23 [id number] Yaneth Pineda [address] [place] [address] 10/18/2018 16:01:52 10/18/2018 16:33:37 Mycosis 4242875 B49 Epidermoid cyst of skin 647164842 L72.0 [id number] Yaneth Pineda APRN [address] [place] [address] 01/15/2019 09:16:48 01/15/2019 12:13:28 Family history of diabetes mellitus type 2 746112936 Z83.3 Requires c ourse of hepatitis B vaccination 127049293 Z28.3 Anxiety disorder 4834604 06 F41.9 Thyroid ho rmone tests outside reference range 945818064 R94.6 Vitamin D deficiency 347 70356 E55.9 Nicotine dependence 5629 4008 F17.200 Vitamin B1 2 deficiency (non anemic) 77882780 E53.8 Thyroid nodule 593602690 E04.1 Mass of po stauricular region 812841134 R22.0 [id number] Cinthya Decker APRN [address] [place] [address] 01/30/2019 08:02:22 01/30/2019 10:10:59 Deep seated dermatophytosis 853520255 B35.8 majocchi granuloma [id number] Cinthya Decker APRN [address] [place] [address] 02/27/2019 07:58:05 02/27/2019 10:07:21 Deep seated dermatophytosis 636947519 B35.8 majocchi granuloma resolved on left dorsal aspect of hand. return for follow up in 6 months post medication CMP today [id number] Grace Moreno PA-C [address] [place] [address] 03/26/2019 13:53:45 03/26/2019 14:47:44 Knee pain 76104257 M25.262 [id number] Yaneth Pineda [address] [place] [address] 04/16/2019 08:29:03 04/16/2019 09:25:42 Family history of diabetes mellitus type 2 792190580 Z83.3 Anxiety disorder 8128345 06 F41.9 Thyroid ho rmone tests outside reference range 989871944 R94.6 Vitamin D deficiency 347 18593 E55.9 Nicotine dependence 5629 4008 F17.200 Thyroid nodule 370067908 E04.1 Nocturia 777943881 R35.1 Fatigue 77615663 R53.83 [id number] Yaneth Pineda [address] [place] [address] 07/17/2019 08:21:43 07/17/2019 09:20:39 Family history of diabetes mellitus type 2 540863601 Z83.3 Anxiety disorder 1654541 06 F41.9 Thyroid ho rmone tests outside reference range 010820952 R94.6 Vitamin D deficiency 347 63192 E55.9 Nicotine dependence 5629 4008 F17.200 Thyroid nodule 754589477 E04.1 Fatigue 98781498 R53.83 Body mass index 25-29 - overweight 454270605 Z68.26 Mixed hyperlipidemia 267 616428 E78.2 Requires a hepatitis A vaccination 419258331 Z28.3 Screening for malignant neoplasm of colon 764269256 Z12.11 [id number] Cinthya Decker [address] [place] [address] 08/28/2019 07:50:54 08/28/2019 08:49:57 Deep seated dermatophytosis 939847367 B35.8 majocchi granuloma - no activity of MG today , rather skin irritation . We discussed adverse affects of Griseofulv in and avoiding use if not necessary. Skin irritation 66901887 7 L30.9 [id number] Perla JUSTIN Lay [address] [place] [address] 08/28/2019 08:52:00 08/28/2019 10:26:59 Administration of influenza vaccine 20778728 Z23 [id number] Cinthyajuni Decker APRN [address] [place] [address] 10/02/2019 07:51:50 10/02/2019 10:19:29 Deep seated dermatophytosis 002519954 B35.8 no activity of MG today , rather skin irritation . discussed continued irritation of dry skin and support measures Tinea pedis 9540933 B35. 3 [id number] Mónica Anderson MD [address] [place] [address] 11/06/2019 08:09:20 11/06/2019 08:40:58 Knee pain 33776540 M25.569 Get XRS of left knee, labs. Takes Naproxen 250 to 500 once a day and that helps with pain. Addendum: XRS of left knee showed multi compartmen t osteoarthr itis. Will get MRI of left knee. See us back or go to Er right away should get worse or develop any new symptoms or complaints . Follow up with us in a couple of weeks. Pain in lower limb 41987 006 M79.605 Pain would localize to left merrill area (proximall y). Get XRS, Venous US and SHELLIE. [id number] Yaneth Pineda APRN [address] [place] [address] 01/02/2020 16:24:14 01/02/2020 16:24:38 Family history of diabetes mellitus type 2 054924060 Z83.3 Anxiety disorder 2958967 06 F41.9 Thyroid ho rmone tests outside reference range 528519482 R94.6 Vitamin D deficiency 347 28527 E55.9 Nicotine dependence 5629 4008 F17.200 Thyroid nodule 651031214 E04.1 Body mass index 25-29 - overweight 465724058 Z68.26 Mixed hyperlipidemia 267 052614 E78.2 Candidiasis of skin 4988 3006 B37.2 [id number] Yaneth Pineda [employer] [address] [place] [address] 07/29/2020 15:38:27 07/29/2020 16:18:20 Family history of diabetes mellitus type 2 247828932 Z83.3 Anxiety disorder 7520529 06 F41.9 Thyroid ho rmone tests outside reference range 817552774 R94.6 Vitamin D deficiency 347 76603 E55.9 Nicotine dependence 5629 4008 F17.200 Thyroid nodule 370969912 E04.1 Mixed hyperlipidemia 267 705472 E78.2 Nocturia 463160089 R35.1 Body mass index 20-24 - normal 571736098 Z68.24 Candidiasis of skin 4988 3006 B37.2 Exposure t o SARS-CoV-2 171090675 Z20.156 [id number] Margot Wall MD [address] [place] [address] 09/16/2020 09:59:17 09/16/2020 10:09:33 Administration of influenza vaccine 95104172 Z23 [id number] Yaneth Pineda [address] [place] [address] 01/26/2021 08:49:07 01/26/2021 09:32:18 Family history of diabetes mellitus type 2 282886436 Z83.3 Anxiety disorder 06 F41.9 Thyroid ho rmone tests outside reference range 184890511 R94.6 Vitamin D deficiency 347 38458 E55.9 Nicotine dependence 5629 4008 F17.200 Thyroid nodule 246748320 E04.1 Mixed hyperlipidemia 267 141325 E78.2 Body mass index 20-24 - normal 827073510 Z68.24 Screening for malignant neoplasm of colon 308843875 Z12.11 Rib pain 253923576 R07.8 1 Nocturia 947627376 R35.1 [id number] Grace Moreno PA-C [address] [place] [address] 01/27/2021 08:24:03 01/27/2021 09:38:50 Osteoarthritis of knee 225834742 M17.9 [id number] Matt Rivera [facility] [employer] [address] [place] [address] [place] [address] 06/09/2021 09:14:42 06/09/2021 10:35:25 Chronic neck pain 7213221102 107 M54.2 exacerbate d; somatic dysfunctio n present; OMT provided to treat concomitan t and contributi ng somatic dysfunctio n; repeat/re- evaluate 2-4 weeks; will do trial of medical acupunctur e at that time Chronic back pain 501572 002 M54.9 exacerbate d; as above Somatic dy sfunction of head region 423505114 M99.00 as above Cervical s omatic dysfunction 048823186 M99.01 as above Somatic dy sfunction of thoracic region 739536532 M99.02 as above Somatic dy sfunction of lumbar region 124675743 M99.03 as above Somatic dy sfunction of sacral spine 275039891 M99.04 as above Somatic dy sfunction of innominate bone 955853982 M99.05 as above Somatic dy sfunction of lower limb 431470956 M99.06 as above [id number] DO Sydnee [place] [employer] [address] [place] [address] [place] [address] 06/23/2021 09:49:22 06/23/2021 10:29:59 Chronic neck pain 1053966150 107 M54.2 exacerbate d but improved from previous; somatic dysfunctio n present; OMT provided to treat concomitan t and contributi ng somatic dysfunctio n; repeat/re- evaluate 2-4 weeks; will do trial of medical acupunctur e at that time Chronic back pain 543735 002 M54.9 exacerbate d; as above Somatic dy sfunction of head region 427280329 M99.00 as above Cervical s omatic dysfunction 727857992 M99.01 as above Somatic dy sfunction of thoracic region 376627015 M99.02 as above Somatic dy sfunction of lumbar region 633103520 M99.03 as above [id number] Yaneth Pineda APRN [address] [place] [address] 07/27/2021 08:23:07 07/27/2021 09:37:02 Anxiety disorder 046549511 F41.9 Body mass index 25-29 - overweight 999454285 Z68.25 Family his tory of diabetes mellitus type 2 122412025 Z83.3 Thyroid ho rmone tests outside reference range 610079422 R94.6 Vitamin D deficiency 347 92826 E55.9 Nicotine dependence 5629 4008 F17.200 Thyroid nodule 490100576 E04.1 Mixed hyperlipidemia 267 318664 E78.2 Pain of ri ght knee joint 2062659365 56856 M25.561 Mass of ri ght parotid gland 8827431704 4771784 R22.1 [id number] Sean Salomon MD [address] [place] [address] 09/17/2021 15:49:56 09/17/2021 16:37:37 Anxiety 18337189 F41.9 Anxiety disorder F41.9 Arthritis 5152492 M19.90 Eczema 30867049 L30.9 Family his tory of diabetes mellitus type 2 249644729 Z83.3 Kidney stone 53265185 N2 0.0 Nicotine dependence 5629 4008 F17.200 Osteoarthritis 887627368 M19.90 Thyroid ho rmone tests outside reference range 989578832 R94.6 Thyroid nodule 366903419 E04.1 Vitamin D deficiency 347 52592 E55.9 Atypical chest pain 1025 28450 R07.89 [id number] Sean Salomon MD [address] [place] [address] 09/23/2021 11:03:44 09/23/2021 11:34:59 Anxiety 56120226 F41.9 controlled Anxiety disorder F41.9 Arthritis 6477371 M19.90 controlled Eczema 45168914 L30.9 controlled Nicotine dependence 5629 4008 F17.200 quit Osteoarthritis 962500876 M19.90 controlled Thyroid nodule 518875760 E04.1 Vitamin D deficiency 347 42732 E55.9 Coronary arteriosclerosis 59094620 I25.[address] s egment elevation myocardial infarction 176181288 I21.3 resolved Body mass index 20-24 - normal 413728170 Z68.24 [id number] Sean Salomon MD [address] [place] [address] 10/21/2021 08:32:22 10/21/2021 09:23:12 Osteoarthritis 855020782 M19.90 controlled Body mass index 25-29 - overweight 034470262 Z68.25 [id number] Sean Salomon MD [address] [place] [address] 12/24/2021 09:59:09 12/24/2021 11:13:08 Coronary arteriosclerosis 56828708 I25.10 Acute myoc ardial infarction of inferior wall 54260196 I21.9 Thyroid ho rmone tests outside reference range 673709838 R94.6 Anxiety disorder 06 F41.9 Thyroid nodule 201138839 E04.1 Vitamin D deficiency 347 93061 E55.9 Arthritis 7086254 M19.90 controlled Osteoarthritis 905929337 M19.90 controlled Anxiety 28322682 F41.9 controlled Nicotine dependence 5629 4008 F17.200 quit Screening for malignant neoplasm of prostate 865017413 Z12.5 Body mass index 25-29 - overweight 473946407 Z68.25 Active or passive immunization 315135680 Z23 [id number] Sean Salomon MD [address] [place] [address] 04/14/2022 12:46:39 04/14/2022 13:35:44 Acute myocardial infarction of inferior wall 85533800 I21.9 Anxiety disorder 06 F41.9 Anxiety 47233215 F41.9 controlled Arthritis 9967782 M19.90 controlled Coronary arteriosclerosis 63872680 I25.10 Eczema 52512215 L30.9 controlled Nicotine dependence 5629 4008 F17.200 quit Osteoarthritis 823464415 M19.90 controlled Thyroid nodule 170139147 E04.1 Vitamin D deficiency 347 83024 E55.9 Body mass index 25-29 - overweight 576418301 Z68.25 [id number] Lisa Coleman APRN [address] [address] 06/22/2022 14:17:50 06/22/2022 18:47:15 Viral screening 761783074 Z11.59 negative for COVID per rapid testing in office [id number] Sean Salomon MD [address] [place] [address] 07/01/2022 12:29:25 07/01/2022 13:49:56 Coronary arteriosclerosis 82141647 I25.10 stable Acute myoc ardial infarction of inferior wall 02705935 I21.9 Anxiety disorder 06 F41.9 stable Thyroid nodule 894763702 E04.1 Vitamin D deficiency 347 67706 E55.9 stable Arthritis 7771991 M19.90 controlled Osteoarthritis 292711301 M19.90 controlled Eczema 52168213 L30.9 controlled Anxiety 63592522 F41.9 controlled Nicotine dependence 5629 4008 F17.200 quit Active or passive immunization 156518033 Z23 Body mass index 25-29 - overweight 118633373 Z68.25 [id number] Sean Salomon MD [address] [place] [address] 11/11/2022 10:32:19 11/11/2022 11:26:37 Coronary arteriosclerosis 18563986 I25.10 stable Acute myoc ardial infarction of inferior wall 65572588 I21.9 Anxiety disorder F41.9 stable Thyroid nodule 246314199 E04.1 Vitamin D deficiency 347 00368 E55.9 stable Arthritis 0156689 M19.90 controlled Osteoarthritis 373535244 M19.90 controlled Family his tory of diabetes mellitus type 2 117504555 Z83.3 Eczema 47816882 L30.9 controlled Anxiety 84814277 F41.9 controlled Nicotine dependence 5629 4008 F17.200 quit Tinea pedis 6347056 B35. 3 Screening for malignant neoplasm of prostate 967689868 Z12.5 [id number] Yaneth Pineda APRN [address] [place] [address] 11/23/2022 13:44:36 11/23/2022 14:40:28 Anxiety disorder 248856793 F41.9 Body mass index 25-29 - overweight 989961225 Z68.26 Family his tory of diabetes mellitus type 2 545921432 Z83.3 Thyroid ho rmone tests outside reference range 616811101 R94.6 Vitamin D deficiency 347 33335 E55.9 Nicotine dependence 5629 4008 F17.200 Thyroid nodule 628121742 E04.1 Mixed hyperlipidemia 267 283595 E78.2 Mass of ri ght parotid gland 6724161446 6148057 R22.1 Renal artery stenosis 30 1028385 I70.1 [id number] Sean Salomon MD [address] [place] [address] 05/12/2023 08:35:39 05/12/2023 09:10:41 Coronary arteriosclerosis 10536148 I25.10 stable Anxiety disorder 06 F41.9 stable Thyroid nodule 728403706 E04.1 Vitamin D deficiency 347 32574 E55.9 stable Arthritis 5013146 M19.90 controlled Osteoarthritis 650461668 M19.90 controlled Family his tory of diabetes mellitus type 2 382215213 Z83.3 Acute myoc ardial infarction of inferior wall 67250675 I21.9 Kidney stone 08464370 N2 0.0 Nicotine dependence 5629 4008 F17.200 quit Anxiety 21038953 F41.9 controlled Eczema 19072921 L30.9 controlled Body mass index 25-29 - overweight 084408827 Z68.25 [id number] Iliana Ashraf [address] [address] 09/06/2023 10:18:37 09/06/2023 10:26:08 Influenza vaccine needed 0011750805 106 Z23 [id number] Iliana Ashraf [address] [address] 10/20/2023 08:49:25 10/20/2023 11:04:24 Anxiety 96142435 F41.9 Acute myoc ardial infarction of inferior wall 26935196 I21.9 Coronary arteriosclerosis 31526262 I25.10 Thyroid nodule 279598757 E04.1 Screening for malignant neoplasm of prostate 494293827 Z12.5 Arthritis 9527969 M19.90 Eczema 85182805 L30.9 Nail discoloration 09545 005 L60.8 pt does not want to see dermatolog y will follow up with his foot md [email or web address] Family his tory of diabetes mellitus type 2 615751950 Z83.3 Adult heal th examination 237348514 Z00.00 HIV screen ing declined 1361503707 25756 Z53.20 [id number] [id number] 02/09/2024 13:36:20 02/09/2024 14:27:37 Tobacco user 041569409 Z72.0 Persistent cough 5815944 02 R05.3 Family his tory of malignant tumor of hypopharynx 7227194880 8224846 Z80.8 Respirator y tract congestion and cough 452453896 R05.9 Nicotine dependence 5629 4008 Z87.063 [id number] [facility] [place] 02/14/2024 09:58:33 02/14/2024 10:46:53 Screening for malignant neoplasm of respiratory tract 315515999 Z12.2 [id number] [facility] [place] [id number] 1 02/24/2024 13:16:21 02/24/2024 14:24:38 Acute maxillary sinusitis 85596791 J01.00 if no improvemen t return [id number] [facility] [address] [address] 06/05/2024 08:39:12 06/05/2024 10:07:35 Influenza caused by Influenza B virus 27327637 J10.1 no sign of a bacterial infection. likely viral. viruses can take 7-14 days to run their course. nasal saline and bulb syringe to remove nasal drainage to help with congestion . monitor temp. Tylenol or Motrin as needed for pain or fever. encourage fluids, water, Gatorade, power aide, Pedialyte if /tod dler/child warm salt water gargles warm fluids sore throat lozenges sleep elevated humidifier /vaporizer follow up immediatel y for new or worsening symptoms or no noticeable improvemen t over the next 48-72 hours [id number] Iliana Ashraf [address] [address] 06/12/2024 14:15:22 06/12/2024 15:08:03 Infection of skin and subcutaneous tissue caused by fungus 567714563 B36.9 Coronary arteriosclerosis 42079150 I25.10 Tinea pedis 9403280 B35. 3 recheck labs once complete [id number] Iliana Ashraf [place] 7476764[address] 1 09/03/2024 09:53:22 09/03/2024 11:14:54 Right upper quadrant pain 359226662 R10.11 labsus gallbladde r Acid reflux 947455017 K2 1.9 meds [id number] Iliana Ashraf [place] 7476764-868 1 09/10/2024 09:05:20 09/10/2024 10:49:39 Influenza vaccine needed 9887672565 106 Z23 Abdominal pain 01153665 R10.11 [id number] Iliana Ashraf [address] [address] 12/11/2024 13:11:48 12/11/2024 14:07:35 Low back pain co-occurrent with neuralgia of right sciatic nerve 6670925806 43486 M54.41 pt does not want muscle relaxersro olguin heat and icemeds as orderedif worsen or no improvemen t returnif no improvemen t will order more work up [id number] Iliana Ashraf [address] [address] 12/13/2024 08:19:45 12/13/2024 09:46:25 Arthritis 8703891 M19.90 labs Coronary arteriosclerosis 12355792 I25.10 Family his tory of diabetes mellitus type 2 482860959 Z83.3 Vitamin D deficiency 347 30347 E55.9 labs Thyroid nodule 258520690 E04.1 labs Increased frequency of urination 017238652 R35.0 labs Low back pain 067901756 M54.50 xray Pain of bi lateral hands 4534134450 5200010 M79.641 xray Pain of le ft knee joint 7307607915 79658 M25.562 xray [id number] Iliana Ashraf [place] 7476764-868 1 01/01/2025 15:37:25 01/01/2025 16:49:20 Pain of right hip joint 4253126395 [address] r/o Avascular Necrosis of the Femoral Head 7772239 [facility] [place] 7476764-868 1 01/29/2025 07:55:15 01/29/2025 08:32:17 Coronary arteriosclerosis 35235066 I25.10 Low back pain 158907453 M54.50 4102055 [facility] [place] 6873164-868 1 03/04/2025 15:39:08 03/04/2025 17:00:29 Anxiety 94899519 F41.9 Pt compliant with plan of careRickey reviewedme dication compliance discussedL ast uds:03/04/25 Control substance agreement on file Low back pain 498899625 M54.50 follow up with ptxraysfol low up with neurosurge on [id number] Tito Dougherty MD [facility] [address] [place] [address] 03/05/2025 11:22:43 03/05/2025 12:43:24 Tinea corporis 50635785 B35.4 Health Concerns Section Related Observation LastModified by Organization Detai ls LastModified Time None Recorded Concern Status LastModified by Organization Details LastModified Time None Recorded Advance Directives Directive N: Payers Insurance Date Sequence Insurance Name Policy Number Policy Mac Covered Member ID Mac Member ID Guarantor Name 03/13/2025 1 [place] [id number] Essence Dunlap [id number] 31 Nitin Dunlap 09/10/2024 1 [place] [id number] Nitin Dunlap [id number] 31 Nitin Dunlap Notes Date Note Type Note Provider Name and Address Organization Details Recorded Time 12/13/2024 text/html 64 yr old male presents for mak hand pain, low back pain,left knee pain and lab work. pt states he has always had joint pain but it seems to be getting worse Pachecosumit Ashraf APRN [address], [place], [address], [place] [facility] 12/13/2024 09:34:21 01/01/2025 text/html Nitin is a 64 year old male who presents to the office today with concerns ofcontinued right hip pain, calf pain and groin pain Pachecosumit Ashraf APRN [address], [place], [address], [place] [facility] 01/01/2025 17:05:04 01/29/2025 text/html 64 yr old male presents for lab work for cardiology. pt states he is doing well waiting for appointment for neurosurgery for back pain Pachecosumit JUSTIN pate [address], [place], [address], [place] [facility] 01/29/2025 08:22:06 03/04/2025 text/html Back PainReporte d bypatient.Location: pain is not radiating Severity:improving Associated Symptoms:no fever; no weak limbs; no numbness of the legs/feet; no tingling; no incontinence; no shortness of breath; no unintentional weight loss; no chills; no night sweats; no gait instability; no bowel/bladder symptoms; no recent increase in stress Prior Imaging:MRI; X-ray 64 yr old male presents for a follow up on back pain/neurosurgeon consult. pt states he needs xrays done that the neurosurgeon wants done. pt states he also would like a refill on xanax that he has had for over 2 years and only takes them when he really needs them. Iliana Ashraf, JUSTIN [address], [place], [address], [facility] - [facility] 03/04/2025 17:21:00 03/05/2025 text/html pt with hx of ti tiffanie corporus, he is intolerant of lamisil, and he has taken griseofulvin annually for several years that clears the problem, this year it has flared up on his feet and buttocks Tito Dougherty MD [address], [place], [address], [place] [facility] 03/05/2025 12:13:20
--- OUTSIDE RECORDS SUMMARY | 2025-03-21 14:31 | XMS_ITS | Continuity of Care Document ---
Author Organization [place] - [facility] - [place] & [place], [facility] Address [address] [place] [address] [address] [place] [address] Care Team Providers Care Knitting Demonstrator Name Role Phone RAMIRO ZAPIEN Primary Care Provider Assessment Encounter Date Assessment Date Assessment LastModified by Organization Details LastModified Time 01/21/2025 01/21/2025 Doing well. No chest pain [...] Lab CMP, serum or plasma [address] (Registration ), [address] [place] [address] [place], [address], 01/28/2025 08:47:50 lipid panel, blood [address] (Registration ), [address] [place] [address] [place], [address], 01/28/2025 08:48:24 Referral None recorded. Procedures None recorded. Surgeries None recorded. Imaging electroca rdiogram 2024 025 robin [facility], [address] [place] [address] [address], [place], [address], 01/21/2025 09:28:09 Medication Orders None recorded. Patient TargetsNo targets recorded. Patient InstructionsNo instructions recorded. Reason for Referral None Reported. Results Created Date Observation Date Name Description Value Unit Range Abnormal Flag Note LastModifiedBy Organization Detail LastModifiedTime 01/02/20 25 XR, hip, unila teral No observ ation record ed. [email or web address] [address] [place], [address], 01/01/2025 09:32:01 01/11/20 25 01/07/2025 imagi ng/di agnos tic resul t No observ ation record ed. [email or web address] [address] [place], [address], 01/10/2025 15:38:26 01/22/20 elect simi diogr am No observ ation record ed. ELAINE Cheema [address], [place], [address], 01/21/2025 09:03:21 01/22/20 25 01/21/2025 elect simi russellgr am No observ ation record ed. 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,[place] [address] : 1959 Age: 64 Sex: M Acct: [id number] Loc: G.MRI PHONE #: [phone] Exam Date: 2024 Status : DEP CLI FAX #: Rad# [id number] Unit# [id number] Admit Date: 2024 EXAMS: CPT CODE: [id number] MRI LUMBAR SPINE W/O CONT [id number] EXAM: MRI LUMBAR SPINE W/O CONT CLINIC [...] L5-S1 PAGE 1 Signed Report (FORREST NUED) [facility] Name: VAUGHN DUNLAP [facility] Medica l [employer] Phys: [place] 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 Problems Name Problem SNOMED Code Status Onset Date Resolution Date Notes Provider Name and Address Organization Details Recorded Time Thyroid hormone tests outside reference range 685115051 Active 2020 Brooke Rodriguez null, [place] [facility] [place] & [place] 5 15:29:50 Anxiety disorder 126948548 Active 2020 Brooke Rodriguez [place] [facility] [place] 5 15:29:51 Thyroid nodule 890160977 Active 2020 Brooke Rodriguez [place] [facility] [place] 5 15:29:51 Vitamin D deficiency 46291768 Active 2020 Brooke Rodriguez [place] [facility] [place] 5 15:29:51 Arthritis 4607305 Active Brooke Rodriguez [place] [facility] [place] & [place] 5 15:29:51 Osteoarthritis 831648882 Active Brooke Rodriguez [place] [facility] [place] 5 15:29:51 Family history of diabetes mellitus type 2 143686617 Active 2020 Brooke Rodriguez [place] [facility] [place] 5 15:29:51 Eczema 36246581 Active Brooke Rodriguez [place] [facility] [place] 5 15:29:51 Anxiety 68367491 Active Brooke Rodriguez [place] [facility] [place] 5 15:29:51 Nicotine dependence 96972178 Active 2020 Brooke Rodriguez [place] [facility] [place] 5 15:29:51 Acute myocardial infarction of inferior wall 36702073 Active Brooke Rodriguez [place] [facility] [place] 5 15:29:51 Kidney stone 87785768 Active Brooke Rodriguez [place] [facility] [place] 5 15:29:51 Coronary arterioscleros is 84961840 Active 2020 Brooke Rodriguez [place] [facility] [place] 5 15:29:51 Renal artery stenosis 679161273 Active 2021 Gerhard Giron MD [facility] [place], [address], [place] [facility] [place] & [place] 2 08:42:26 Essential hypertension 10151420 Active 2021 Gerhard Giron MD [facility] [place], [address], [place] [facility] [place] 2 08:42:31 Hyperlipidemia 34645144 Active 2021 Gerhard Giron MD [facility] [place], [address], [place] [facility] [place] & [place] 2 08:42:38 Tobacco dependence syndrome 58912636 Active 2023 Gerhard Giron MD [facility] [place], [address], [place] [facility] [place] & [place] 4 09:58:30 Dyspnea on exertion 07467858 Active 2023 Gerhard Giron MD [facility] [place], [address], [place] [facility] [place] & [place] 4 09:58:30 Notes:Some problems listed i n Document: #[id number] could not be added to this patient's chart. Please review this document and add these problems to the patient's chart manually as needed. Problem Notes None recorded. Procedures Surgical History Date Name Laterality Status Provider Name and Address Organization Details Recorded Time 022 Joint Replacement completed Crystal Dionicio KHAN - [facility] - [place] 04/12/2023 09:06:17 Colonoscopy completed Brooke KHAN - L [facility] & [place] 10/16/2024 10:15:44 Cardiac Catheterization completed Jailyn KHAN - [facility] & [place] 09/06/2022 08:45:08 lithotripsy completed Jailyn KHAN - [facility] & [place] 09/06/2022 08:45:18 operation on hip joint completed Jailyn KHAN - [facility] & [place] 09/06/2022 08:45:29 Imaging Results None recorded. Procedure Notes None recorded. Medical Equipment None Reported. Allergies Allergen ID Allergen Name Allergen Category Reaction Reaction Severity Criticality Documentation Date Start Date Code Code System Note Provider Name and Address Organization Details Recorded Time 705188 terbinafi ne medicatio n Not available Not available Not available 10/17/20242020 29408 RxNorm ERIN Mullen [facility] & [place] 5 15:29:48 27504 Lamisil medicatio n Not available Not available Not available 09/06/20222011 52893 6 RxNorm Kathy ERIN Martinez - [facility] & [place] 5 08:13:13 Medications Name Sig Start Date [...] Updated DateTime 5 175.26 cm 24.7 kg/m2 89821.9 3 g 96 % 96 % 67 /min 110 mm[Hg] 70 mm[Hg] Jailyn Malik marycruz [place] - [facility] & [place] 09:05:55 Social History Question Answer Notes LastModified by [email or web address] ion Details LastModified Time Tobacco Smoking Status Current Every Day Smoker Jailyn Ward leroy, ERIN - [facility] & [place] 09/06/2022 08:44:49 Do You Have An Advance Directive? No [email or web address] Information not available 01/21/2025 Are You Blind Or Do You Have Difficulty Seeing? No [email or web address] Information not available 01/21/2025 What Was The Date Of Your Most Recent Tobacco Screening? 10/14/2024 [email or web address] Information not available 01/21/2025 Are You Passively Exposed To Smoke? No Information not available 04/12/2023 How Much Tobacco Do You Smoke? 1 PPD Information not available 04/12/2023 How Many Years Have You Smoked Tobacco? 40 Information not available 04/12/2023 Sex: Male Functional Status Question Answer Note LastModified by Organizat ion Details LastModified Time Do you use any illicit or recreational drugs? No [email or web address] Information not available 09/06/2022 What is your level of alcohol consumption? None [email or web address] Information not available 09/06/2022 Do you or [...] Not available 2024 08:51:50 Father Hypertensive disorder [email or web address] Not available 08:44:01 Father Coronary arterioscler osis [email or web address] Not available 2024 08:51:50 Medical History Condition Response Coronary Artery Disease Y Anxiety Disorder Y Heart Attack ([place]) Y Hyperlipidemia Y Heart Disease Y Hypertension N Immunizations Vaccine Type Date Status Note Provider Nam e and Address Organization Details Recorded Time COVID-19, mRNA, LNP-S, PF, 100 mcg/0.5mL dose or 50 mcg/0.25mL dose 0 completed Jailyn harper, [place] - [facility] & [place] 09/10/2024 12:04:14 Td (adult), 5 Lf tetanus toxoid, preservative free, adsorbed 9 completed Jailyn Ward null, [place] [facility] & [place] 09/10/2024 12:04:14 Td (adult), 2 Lf tetanus toxoid, preservative free, adsorbed 0 completed Jailyn Ward null[place] [facility] & [place] 09/10/2024 12:04:14 Influenza, split virus, quadrivalent, preservative 9 completed Brooke Rodriguez [place] [facility] & [place] 10/17/2024 15:29:51 Influenza, split virus, quadrivalent, preservative 3 completed Brooke Rodriguez [place] [facility] & [place] 10/17/2024 15:29:51 Influenza, split virus, quadrivalent, preservative 0 completed Brooke Rodriguez [place] [facility] & [place] 10/17/2024 15:29:51 Influenza, split virus, quadrivalent, preservative 6 completed Brooke Rodriguez [place] [facility] [place] 10/17/2024 15:29:51 Influenza, split virus, quadrivalent, preservative 8 completed Brooke Rodriguez [place] [facility] [place] 10/17/2024 15:29:51 zoster recombinant 2 completed Brooke Rodriguez [place] [facility] [place] 10/17/2024 15:29:51 zoster recombinant 2 completed Brooke Rodriguez [place] [facility] [place] 10/17/2024 15:29:51 SARS-COV-2 (COVID-19) vaccine, UNSPECIFIED 1 completed Brooke Rodriguez [place] [facility] [place] 10/17/2024 15:29:51 SARS-COV-2 (COVID-19) vaccine, UNSPECIFIED 1 completed Brooke [place] [facility] [place] 10/17/2024 15:29:51 influenza, unspecified formulation 5 completed Brooke Rodriguez [place] [facility] [place] 10/17/2024 15:29:51 Influenza, split virus, trivalent, preservative 4 completed Brooke [place] [facility] [place] 10/17/2024 15:29:51 Hep B, adolescent or pediatric 5 completed Brooke Rodriguez [place] [facility] [place] 10/17/2024 15:29:51 Hep B, adolescent or pediatric 5 completed Brooke Rodriguez [place] [facility] [place] 10/17/2024 15:29:51 Hep B, adolescent or pediatric 5 completed Brooke Rodriguez [place] [facility] [place] 10/17/2024 15:29:51 Hep B, adult 9 completed Brooke [place] [facility] [place] 10/17/2024 15:29:51 Hep B, adult 8 completed Brooke Rodriguez [place] [facility] [place] 10/17/2024 15:29:51 Hep B, adult 8 completed Brooke ahrper, ERIN - [place] - [place] & [place] 10/17/2024 15:29:51 Hep A, adult 9 completed Brooke harper, ERIN - LPBI[place] - [place] & [place] 10/17/2024 15:29:51 tetanus toxoid, adsorbed 2 completed Brooke harper, ERIN - [place] - [place] & [place] 10/17/2024 15:29:51 Past Encounters Encounter ID Performer Location Encounter Start Date Encounter Closed Date Diagnosis/Indication Diagnosis SNOMED-CT Code Diagnosis ICD10 Code Diagnosis Note [id number] [facility] [address] [place] [address] 01/01/2025 08:57:24 01/01/2025 10:22:28 Pain of hip region 97036412 M25.551 Lumbar radiculitis 80180 72524 3107744 M54.16 [id number] Gerhard Giron MD [address] [place] [address] 01/21/2025 08:51:40 01/21/2025 09:28:51 Dyspnea on exertion 36924146 R06.09 improved Hyperlipidemia 66680152 E78.5 Coronary arteriosclerosis 87445822 I25.10 Essential hypertension 62712705 I10 Renal artery stenosis 30 1798387 I70.1 History of percutaneous transluminal coronary angioplasty 117048841 Z98.61 Health Concerns Section Related Observation LastModified by Organization Detai ls LastModified Time None Recorded Concern Status LastModified by Organization Details LastModified Time None Recorded Payers Encounter Date Sequence Insurance Name Policy Number Policy Mac Covered Member ID Mac Member ID Guarantor Name 01/21/2025 1 [place] [id number] Essence Dunlap [id number] Sean Dunlap Notes Date Note Type Note Provider Name and Address Organization Details Recorded Time 01/21/2025 text/html doing well. No chest pain pressure or tightness. No shortness of breath. Overall feels well. Gerhard Giron MD [address] [facility],[address], [place], [address], [facility] - [place] - [place] & [place] 01/21/2025 13:38:44
--- OUTSIDE RECORDS SUMMARY | 2025-03-21 14:31 | XMS_ITS | Continuity of Care Document ---
Author Organization [facility] [place] [address] Assessment No assessment recorded. Plan of Treatment Reminders Order Date Submit Date Provider Last Modified By Organization Details Last Modified Time Details Appointments None recorded. Lab None recorded. Referral None recorded. Procedures None recorded. Surgeries None recorded. Imaging None recorded. Medication Orders ketoconazol e 2 % topical cream [address], [address], 5 12:13:19 Patient TargetsNo targets recorded. Patient InstructionsNo instructions recorded. Reason for Referral None Reported. Results Created Date Observation Date Name Description Value Unit Range Abnormal Flag Note LastModifiedBy Organization Detail LastModifiedTime 03/15/20 25 XR, lumba r spine , 2 view No observ ation record ed. [email or web address] [address] , [place], [address], 03/15/2025 08:33:02 Result Notes None recorded. Problems Name Problem SNOMED Code Status Onset Date Resolution Date Notes Provider Name and Address Organization Details Recorded Time Anxiety 93213548 Active Thea Dummitt null, [facility] 2 14:18:00 Arthritis 5356292 Active Thea Dummitt null, [facility] 2 14:18:00 Kidney stone 48645282 Active Thea Dummitt null, [facility] 2 14:18:00 Eczema 58906146 Active Thea Dummitt null, [facility] 2 14:18:00 Osteoarthritis 874942076 Active Thea Dummitt null, [place] - [facility] 2 14:18:00 Exposure to SARS-CoV-2 Active 2019 Thea Mcgarry null, [place] - [facility] 2 14:18:00 Family history of diabetes mellitus type 2 831422845 Active 2020 Thea Mcgarry null, [place] - [facility] 2 14:18:00 Anxiety disorder 769955356 Active 2020 Thea Mcgarry null, [place] - [facility] 2 14:18:00 Thyroid hormone tests outside reference range 154799627 Active 2020 Thea Mcgarry null, [place] - [facility] 2 14:18:00 Vitamin D deficiency 29569071 Active 2020 Thea Mcgarry null, [place] - [facility] 2 14:18:00 Nicotine dependence 96228837 Active 2020 Thea Mcgarry null, [place] - [facility] 2 14:18:00 Thyroid nodule 884222766 Active 2020 Thea Mcgarry null, [place] - [facility] 2 14:18:00 Coronary arterioscleros is 56109676 Active 2020 Thea Mcgarry null, [place] - [facility] 2 14:18:00 Acute myocardial infarction of inferior wall 58686964 Active Thea Mcgarry null, [place] - [facility] 2 14:18:00 Problem Notes None recorded. Procedures Surgical History Date Name Laterality Status Provider Name and Address Organization Details Recorded Time 09/03/20 24 Medication Reconcilliation completed Meseret Camacho [place] - [facility] 09/03/2024 10:16:15 11/23/19 23 A1C level 6.9 and below completed Suzanna Esrtada [place] - [facility] 11/23/2022 14:06:38 04/23/20 22 Knee Surgery completed Purnima Centeno [place] - [facility] 07/01/2022 12:57:07 10/21/19 22 Joint Injection completed Sean Salomon MD [address], [place], [address] [place] - [facility] 10/21/2021 09:18:57 09/23/20 21 Medication Reconcilliation completed Purnima Centeno [place] - [facility] 09/23/2021 11:11:44 09/19/20 21 Cardiac Cath completed Purnima Centeno [place] - [facility] 09/23/2021 11:17:54 09/17/20 21 Joint Injection completed Sean Salomon MD [address], [place], [address], [place] - [facility] 09/17/2021 16:53:25 06/23/20 21 OMT completed Matt Rivera DO [address], [place], [address], [place] [facility] 06/23/2021 10:30:28 06/09/20 21 OMT completed Matt Rivera DO [address], [place], [address], [place] [facility] 06/09/2021 10:33:46 03/19/20 21 Colonoscopy completed America Barber RN [address], [place], [address], [place] [facility] 04/22/2021 16:41:30 01/28/20 21 Arthrocentesis Joint/Bursa Large completed Grace Moreno [place] - [facility] 01/27/2021 09:20:56 07/29/20 20 Diastolic B/P less than 80 mm Hg completed Suzanna Shen[place] [facility] 07/29/2020 15:55:20 07/29/20 20 Systolic B/P greater than or equal to 140 mm Hg completed Suzanna [place] [facility] 07/29/2020 15:55:31 01/02/20 20 Diastolic B/P 80-89 mm Hg cancelled Suzanna Natalie [place] [facility] 01/02/2020 16:40:21 01/02/20 20 Systolic B/P 130-139 mm Hg cancelled Suzanna Natalie [place] [facility] 01/02/2020 16:39:58 01/02/20 20 Diastolic B/P 80-89 mm Hg completed Suzanna Natalie [place] [facility] 01/02/2020 16:47:28 01/02/20 20 Systolic B/P 130-139 mm Hg completed Suzanna Shenyles [place] [facility] 01/02/2020 16:47:20 03/26/20 19 Arthrocentesis Joint/Bursa Large completed Grace Moreno [place] [facility] 03/26/2019 14:53:41 01/16/20 19 A1C level 6.9 and below completed Suzanna Estrada [place] [facility] 01/15/2019 09:45:31 03/01/20 18 Arthrocentesis Joint/Bursa Large completed Grace Moreno [place] [facility] 03/01/2018 14:58:03 06/29/20 17 Arthrocentesis Joint/Bursa Large completed Grace Moreno [place] [facility] 06/29/2017 15:10:04 06/09/20 17 I&D completed Sean Salomon MD [address], [place], [address], [place] [facility] 06/09/2017 16:42:28 Elbow arthroscopy/surgery completed Suzanna [place]strada [place] - [facility] 08/02/2016 15:46:33 Knee Surgery completed Suzanna [place]strada [place] [facility] 08/02/2016 15:47:58 Kidney endoscopy & treatment completed Suzanna [place]strada [place] [facility] 08/02/2016 15:48:32 ENT Surgery completed Felicitas Mendiola [place] - [facility] 07/17/2019 08:34:19 Imaging Results None recorded. Procedure Notes None recorded. Medical Equipment None Reported. Allergies Allergen ID Allergen Name Allergen Category Reaction Reaction Severity Criticality Documentation Date Start Date Code Code System Note Provider Name and Address Organization Details Recorded Time 062244 terbinafi ne medicatio n Not available Not available Not available 03/20/20212020 80068 RxNorm Sever mihir Sick Luana harper, [place] - [facility] 09:41:44 48327 Lamisil medicatio n Not available Not available Not available 07/09/20162011 22779 6 RxNorm unkno wn Suzanna harper, [place] - [facility] 08:37:23 Medications Name Sig Start Date Stop [...] 1 tablet every day by oral route. 03/24 /2022 completed Not Available Not Available Not Available [...] User: ant quiroz;Est. Completi on: 01/23/20 13;Pharm acyVerif ied: 01/09/20 13 5:56PM Not Available Not [...] completed Not Available Not Available Not Available griseoful latonia microsize 500 mg tablet TAKE ONE [...] ser: meyerst; Indicati on: Cough - (16.7862 ) Not Available Not Available Not Available clopidogr [...] on: 11/20/19 13;Indic ation: Hemorrho ids - (294586 00) Not Available Not Available Not Available methylpre [...] Status: Recorded on: 05/11/20 16 10:05AM; User: davina EstLynnette Ashraf on: 05/21/20 16;Print ed: 05/11/20 16 Not [...] nued on: 02/12/20 14 11:44AM; User: henry EstLynnette Completsabrina on: 11/18/19 13;Indic ation: rectal pain - [...] nued on: 05/25/20 10 11:02AM; User: raf ;Est. Completi on: 12/28/19 10;Indic ation: Nasal Congesti on - ();Prin karo: 11/27/19 10 Not Available Not Available Not Available [place] 1 qhs 07/03 completed norco 5/325mg; Recorded Status: Recorded on: 12/31/19 15 8:54AM;D iscontin ued Status: Disconti nued on: 07/03/20 15 9:12AM;U ser: markesbe ryh;Est. Completi on: 01/21/20 15;Indic ation: - (-5) Not Available Not Available Not Available loratadin e 10 mg q day 01/15 completed Not Available Not Available Not Available Flonase 1 spray bid 01/08 completed flonase; Recorded Status: Recorded on: 01/09/20 13 4:11PM;D iscontin ued Status: Disconti nued on: 01/09/20 13 4:33PM;U ser: markesbe ryh;Est. Completi on: 01/23/20 13;Indic ation: - (-5) [...] Disconti nued on: 07/03/20 15 9:12AM;U ser: henry Est. Completi on: 07/22/20 12;Indic ation: strain [...] Updated DateTime 5 176.53 cm 24.6 kg/m2 99619.1 1 g 68 /min 98 % 98 % 16 /min 132 mm[Hg] 62 mm[Hg] Karyn Padgett [place] - [facility] 5 11:29:34 Social History Question Answer Notes LastModified by Organization Details LastModified Time Tobacco Smoking Status Current Every Day Smoker Not Available [facility] 07/18/2020 03:13:30 Able To Swim? No Information not available 2016 Do You Have An Advance Directive? No [id number] Information not available 07/18/2020 Do You Wear A Helmet When Biking? No [id number] Information not available 07/18/2020 Are You Blind Or Do You Have Difficulty Seeing? No [id number] Information not available 07/18/2020 What Is Your Level Of Caffeine Consumption? Moderate [id number] Information not available 07/18/2020 How Much Tobacco Do You Chew? None [id number] Information not available 07/18/2020 Are You Deaf Or Do You Have Serious Difficulty Hearing? No [id number] Information not available 07/18/2020 What Type Of Diet Are You Following? REGULAR [id number] Information not available 07/18/2020 Which Illicit Or Recreational Drugs Have You Used? None [id number] Information not available 07/18/2020 What Is The Highest Grade Or Level Of School You Have Completed Or The Highest Degree You Have Received? [id number] Information not available 05/12/2023 Swimming/diving No Informati [...] How Many Children Do You Have? 2 [id number] Information not available 07/18/2020 What Is Your Current Pack Years? 30ormorepackye ars [id number] Information not available 07/18/2020 Do You Use Protection During Sex? No [id number] Information not available 07/18/2020 Do You Use Protection Against STDs? No Information not available 05/12/2023 What Is Your Relationship Status? [id number] Information not available 07/18/2020 Seat Belts Used Routinely Yes Information not available 2016 Are You Sexually Active? Yes [id number] Information not available 07/18/2020 Smoke Alarm In Home No Information not available 2016 Do You Have Smoke And Carbon Monoxide Detectors In Your Home? Yes Information not available 09/17/2021 At What Age Did You Start Smoking Tobacco? 18 [id number] Information not available 07/18/2020 Are You Passively Exposed To Smoke? Yes [id number] Information not available 07/18/2020 How Much Tobacco Do You Smoke? 1 PPD 15 Ciggarettes Per Day bstears Information not available 02/09/2024 General Stress Level High Information not available 2016 Do You Use Sunscreen Routinely? No [id number] Information not available 07/18/2020 Has Tobacco Cessation Counseling Been Provided? Yes Information not available 09/17/2021 On What Date Was Tobacco Cessation Counseling Provided? 12/11/2024 Information not available 12/11/2024 How Many Years Have You Smoked Tobacco? 45 Information not available 02/09/2024 Do You Have Difficulty Walking Or Climbing Stairs? No [id number] Information not available 07/18/2020 Sex: Male Functional Status Question Answer Note LastModified by Organizat ion Details LastModified Time Do you or have you ever used smokeless tobacco? Never used smokeless tobacco [id number] Information not available 07/18/2020 Are you currently employed? Yes [id number] Information not available 07/18/2020 Do you have transportation difficulties? No Information not available 09/17/2021 Are you able to care for yourself? Yes [id number] Information n ot available 07/18/2020 Do you have difficulty dressing or bathing? No [id number] Information not available 07/18/2020 Do you or have you ever used e-cigarettes or vape? Never used electronic cigarettes [id number] Information not available 07/18/2020 What is your exercise level? None [id number] Information not available 07/18/2020 Do you use any illicit or recreational drugs? No Information not available 09/17/2021 Do you or have you ever used any other forms of tobacco or nicotine? No Information not available 09/17/2021 What is your level of alcohol consumption? None [id number] Information not available 07/18/2020 Are you able to walk? YESWOREST [id number] Information not available 07/18/2020 Do you have difficulty doing errands alone? 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 [id number] Information not available 09/17/2021 Do you have difficulty concentrating, remembering or making decisions? No [id number] Information no t available 07/18/2020 Family History [...] Time zoster recombinant 2 completed Not Available [facility] 03/04/2025 15:39:34 Influenza, split virus, quadrivalent, preservative 0 completed Jacquelyn Justice null, [facility] 09/16/2020 10:07:30 Hep B, adolescent or pediatric 5 completed Lisa Benson null, [place] [facility] 10/20/2023 09:05:14 Hep B, adolescent or pediatric 5 completed Lisa Benson [place] [facility] 10/20/2023 09:05:14 Hep B, adolescent or pediatric 5 completed Lisa Benson [place] [facility] 10/20/2023 09:05:14 influenza, unspecified formulation 5 completed Lisa Benson null[place] [facility] 10/20/2023 09:05:14 tetanus toxoid, adsorbed 2 completed Lisa Benson null[place] - [facility] 10/20/2023 09:05:14 zoster recombinant 2 completed Purnima Centeno [place] [facility] 12/24/2021 11:38:59 Influenza, split virus, quadrivalent, preservative 3 completed Meseret Stears null[place] - [facility] 09/06/2023 10:33:09 Influenza, split virus, trivalent, preservative 4 completed Meseret Stears null[place] [facility] 09/10/2024 11:57:05 Hep B, adult 8 completed Not Available [facility] 10/20/2019 03:55:07 Influenza, split virus, quadrivalent, preservative 6 completed Not Available [facility] 10/20/2019 03:54:20 SARS-COV-2 (COVID-19) vaccine, UNSPECIFIED 1 completed Lisa Kelley [place], [place] - [facility] 10/20/2023 09:05:14 SARS-COV-2 (COVID-19) vaccine, UNSPECIFIED 1 completed Lisa Benson null, [place] - [facility] 10/20/2023 09:05:14 Hep B, adult 8 completed Not Available [facility] 10/20[facility]2019 03:55:07 Influenza, split virus, quadrivalent, preservative 8 completed Not Available [facility] 10/20/2019 03:55:28 Hep B, adult 9 completed Not Available [facility] 10/20/2019 03:56:08 Hep A, adult 9 completed Not Available [facility] 10/20/2019 03:56:04 zoster recombinant 2 completed Meseret Camacho null[place] - [facility] 09/06/2023 10:29:25 Influenza, split virus, quadrivalent, preservative 9 completed Not Available [facility] 10/20/2019 03:56:15 Past Encounters Encounter ID Performer Location Encounter Start Date Encounter Closed Date Diagnosis/Indication Diagnosis SNOMED-CT Code Diagnosis ICD10 Code Diagnosis Note [id number] Iliana Ashraf APRN [address] [address] 03/04/2025 15:39:08 03/04/2025 17:00:29 Anxiety 54314889 F41.9 [facility] d[facility] compliance discussedL ast uds:03/04/25 Control substance agreement on file Low back pain 220905486 M54.50 follow up with ptxraysfol low up with neurosurge on [id number] Tito Dougherty MD [facility] [address] [place] [address] 03/05/2025 11:22:43 03/05/2025 12:43:24 Tinea corporis 57686700 B35.4 Health Concerns Section Related Observation LastModified by Organization Detai ls LastModified Time None Recorded Concern Status LastModified by Organization Details LastModified Time None Recorded Payers Encounter Date Sequence Insurance Name Policy Number Policy Mac Covered Member ID Mac Member ID Guarantor Name 03/05/2025 1 [place] [id number] Essence Debbie Dunlap [id number] Nitin Dunlap Notes Date Note Type Note Provider Name and Address Organization Details Recorded Time 03/05/2025 text/html pt with hx of tinea corporus, he is intolerant of lamisil, and he has taken griseofulvin annually for several years that clears the problem, this year it has flared up on his feet and buttocks Tito Dougherty MD [address], [place], [address], [facility] - [facility] 03/05/2025 12:13:20
--- OUTSIDE RECORDS SUMMARY | 2025-03-21 14:32 | XMS_ITS | Continuity of Care Document ---
Author Organization [facility] Address [address] [place] [address] Assessment No assessment recorded. Plan of Treatment Reminders Order Date Submit Date Provider Last Modified By Organization Details Last Modified Time Details Appointments None recorded. Lab None recorded. Referral None recorded. Procedures None recorded. Surgeries None recorded. Imaging XR, lumbar spine, 2 view - flex and ext 2024 025 [facility], [address] [place] [address] , [place], [address], 5 08:27:01 Medication Orders alprazolam 1 mg tablet [address] [place] [address], [address], 5 16:42:05 Patient TargetsNo targets recorded. Patient InstructionsNo instructions recorded. Reason for Referral None Reported. Results Created Date Observation Date Name Description Value Unit Range Abnormal Flag Note LastModifiedBy Organization Detail LastModifiedTime 03/15/20 25 XR, lumba r spine , 2 view No observ ation record ed. [email or web address] , [place], [address], 03/15/2025 08:33:02 Result Notes None recorded. Problems Name Problem SNOMED Code Status Onset Date Resolution Date Notes Provider Name and Address Organization Details Recorded Time Anxiety 51564871 Active Thea Mcgarry null, [place] - [facility] 2 14:18:00 Arthritis 5604994 Active Thea Mcgarry null, [place] - [facility] 2 14:18:00 Kidney stone 88894204 Active Thea Mcgarry null, [place] - [facility] 2 14:18:00 Eczema 05939457 Active Thea Mcgarry null, [place] - [facility] 2 14:18:00 Osteoarthritis 742854995 Active Thea Mcgarry [place], [place] - [facility] 2 14:18:00 Exposure to SARS-CoV-2 Active 2019 Thea Cummingsmitt null, [place] - [facility] 2 14:18:00 Family history of diabetes mellitus type 2 217867117 Active 2020 Thea Mcgarry null, [place] - [facility] 2 14:18:00 Anxiety disorder 500032043 Active 2020 Thea Mcgarry [place] - [facility] 2 14:18:00 Thyroid hormone tests outside reference range 355979054 Active 2020 Thea Mcgarry [place] - [facility] 2 14:18:00 Vitamin D deficiency 02348429 Active 2020 Thea Mcgarry [place] - [facility] 2 14:18:00 Nicotine dependence 41800202 Active 2020 Thea Mcgarry null, [place] - [facility] 2 14:18:00 Thyroid nodule 478007831 Active 2020 Thea Mcgarry null, [place] - [facility] 2 14:18:00 Coronary arterioscleros is 29618989 Active 2020 Thea Mcgarry null, [place] - [facility] 2 14:18:00 Acute myocardial infarction of inferior wall 08114471 Active Thea Mcgarry null, [place] - [facility] 2 14:18:00 Problem Notes None [...] completed Sean Salomon MD [address], [place], [address], [place] - [facility] 10/21/2021 09:18:57 09/23/20 21 Medication Reconcilliation completed Purnima Centeno [place] - [facility] 09/23/2021 11:11:44 09/19/20 21 Cardiac Cath completed Purnima Centeno [place] - [facility] 09/23/2021 11:17:54 09/17/20 21 Joint Injection completed Sean Salomon MD [address], [place], [address], [place] [facility] 09/17/2021 16:53:25 06/23/20 21 OMT completed Matt Rivera DO [address], [place], [address], [place] - [facility] 06/23/2021 10:30:28 06/09/20 21 OMT completed Matt Rivera DO [address], [place], [address], [place] - [facility] 06/09/2021 10:33:46 03/19/20 21 Colonoscopy completed America Barber RN [address], [place], [place], [address], [place] - [facility] 04/22/2021 16:41:30 01/28/20 21 [...] Systolic B/P 130-139 mm Hg cancelled Suzanna Estrada [place] - [facility] 01/02/2020 16:39:58 01/02/20 20 Diastolic B/P 80-89 mm Hg completed Suzanna Estrada [place] - [facility] 01/02/2020 16:47:28 04/01/20 20 Systolic B/P 130-139 mm Hg completed Suzanna Estrada [place] - [facility] 01/02/2020 16:47:20 03/26/20 19 [...] 17 I&D completed Sean Salomon MD [address], [place], [address], [place] - [facility] 06/09/2017 16:42:28 Elbow arthroscopy/surgery completed Suzanna Estrada [place] - [facility] 08/02/2016 15:46:33 Knee Surgery completed Suzanna Estrada [place] - [facility] 08/02/2016 15:47:58 Kidney endoscopy & treatment completed Suzanna Estrada [place] - [facility] 08/02/2016 15:48:32 ENT Surgery completed Felicitas Mendiola [place] - [facility] 07/17/2019 08:34:19 Imaging Results None recorded. Procedure Notes None recorded. Medical Equipment None Reported. Allergies Allergen ID Allergen Name Allergen Category Reaction Reaction Severity Criticality Documentation Date Start Date Code Code System Note Provider Name and Address Organization Details Recorded Time 716178 terbinafi ne medicatio n Not available Not available Not available 03/20/20212020 73509 RxNorm Sever mihir Sick Luana Chrystal null, [place] - [facility] 09:41:44 49367 Lamisil medicatio n Not available Not available Not available 07/09/20162011 21086 6 RxNorm unkno wn Suzanna [place] null, [place] - [facility] 08:37:23 Medications Name Sig [...] on: 11/20/19 13;Indic ation: Hemorrho ids - (9976 00) Not Available Not Available Not Available [...] Recorded on: 05/11/20 16 10:05AM; User: davina Est. Completi on: 05/21/20 16;Print ed: 05/11/20 [...] 12/28/19 10;Indic ation: Nasal Cong[place] on - (4781 00);Prin karo: 11/27/19 10 Not Available Not Available Not Available [place] 1 qhs 07/03 completed norco 5/325mg; Recorded Status: Recorded on: 12/31/19 15 8:54AM;D iscontin ued Status: Disconti nued on: 07/03/20 15 9:12AM;U ser: [email or web address] [email or web address];Est. Completi on: 01/21/20 15;Indic ation: - (-5) Not Available Not Available Not Available loratadin e 10 mg q day 01/15 completed Not Available Not Available Not Available Flonase 1 spray bid 01/08 completed flonase; Recorded Status: Recorded on: 01/09/20 13 4:11PM;D iscontin ued Status: Disconti nued on: 01/09/20 13 4:33PM;U ser: markesbe gabriella;Est. Completi on: 01/23/20 13;Indic ation: - [...] Disconti nued on: 12/09/19 16 4:40PM;U ser: [email or web address] chloeh;Est. Completi on: 12/16/19 16;Indic ation: - (-5) [...] Disconti nued on: 07/03/20 15 9:12AM;U ser: [email or web address] gabriella;Est. Completi on: 12/09/19 13 Not Available Not [...] Disconti nued on: 03/29/20 12 3:55PM;U ser: [email or web address] ryh;Est. Completi on: 10/28/19 12;Indic ation: None Selected [...] Updated DateTime 5 176.53 cm 24.6 kg/m2 97335.1 1 g 83 /min 98 % 98 % 18 /min 144 mm[Hg] 82 mm[Hg] Lisa Benson [place] - [facility] 5 15:49:24 Social History Question Answer Notes LastModified by Organization Details LastModified Time Tobacco Smoking Status Current Every Day Smoker Not Available [facility] 07/18/2020 03:13:30 Able To Swim? No Information not available 2016 Do You Have An Advance Directive? No [id number] Information not available 07/18/2020 Do You Wear A Helmet When Biking? No [id number] Information not available 07/18/2020 Are You Blind Or Do You Have Difficulty Seeing? No [id number] Information not available 07/18/2020 What Is Your Level Of Caffeine Consumption? Moderate [id number] Information not available 07/18/2020 How Much Tobacco Do You Chew? None [id number] Information not available 07/18/2020 Are You Deaf Or Do You Have Serious Difficulty Hearing? No [id number] Information not available 07/18/2020 What Type Of Diet Are You Following? REGULAR [id number] Information not available 07/18/2020 Which Illicit Or Recreational Drugs Have You Used? None [id number] Information not available 07/18/2020 What Is The Highest Grade Or Level Of School You Have Completed Or The Highest Degree You Have Received? [id number] Information not available 05/12/2023 Swimming/diving No Informati [...] How Many Children Do You Have? 2 [id number] Information not available 07/18/2020 What Is Your Current Pack Years? 30ormorepackye ars [id number] Information not available 07/18/2020 Do You Use Protection During Sex? No [id number] Information not available 07/18/2020 Do You Use Protection Against STDs? No Information not available 05/12/2023 What Is Your Relationship Status? [id number] Information not available 07/18/2020 Seat Belts Used Routinely Yes Information not available 2016 Are You Sexually Active? Yes [id number] Information not available 07/18/2020 Smoke Alarm In Home No Information not available 2016 Do You Have Smoke And Carbon Monoxide Detectors In Your Home? Yes Information not available 09/17/2021 At What Age Did You Start Smoking Tobacco? 18 [id number] Information not available 07/18/2020 Are You Passively Exposed To Smoke? Yes [id number] Information not available 07/18/2020 How Much Tobacco Do You Smoke? 1 PPD 15 Ciggarettes Per Day bstears Information not available 02/09/2024 General Stress Level High Information not available 2016 Do You Use Sunscreen Routinely? No [id number] Information not available 07/18/2020 Has Tobacco Cessation Counseling Been Provided? Yes Information not available 09/17/2021 On What Date Was Tobacco Cessation Counseling Provided? 12/11/2024 Information not available 12/11/2024 How Many Years Have You Smoked Tobacco? 45 [email or web address] Information not available 02/09/2024 Do You Have Difficulty Walking Or Climbing Stairs? No [id number] Information not available 07/18/2020 Sex: Male Functional Status Question Answer Note LastModified by Organizat ion Details LastModified Time Do you or have you ever used smokeless tobacco? Never used smokeless tobacco [id number] Information not available 07/18/2020 Are you currently employed? Yes [id number] Information not available 07/18/2020 Do you have transportation difficulties? No Information not available 09/17/2021 Are you able to care for yourself? Yes [id number] Information n ot available 07/18/2020 Do you have difficulty dressing or bathing? No [id number] Information not available 07/18/2020 Do you or have you ever used e-cigarettes or vape? Never used electronic cigarettes [id number] Information not available 07/18/2020 What is your exercise level? None [id number] Information not available 07/18/2020 Do you use any illicit or recreational drugs? No Information not available 09/17/2021 Do you or have you ever used any other forms of tobacco or nicotine? No Information not available 09/17/2021 What is your level of alcohol consumption? None [id number] Information not available 07/18/2020 Are you able to walk? YESWOREST [id number] Information not available 07/18/2020 Do you have difficulty doing errands alone? 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 [id number] Information not available 09/17/2021 Do you have difficulty concentrating, remembering or making decisions? No [id number] Information no t available 07/18/2020 Family History [...] available 2015 15:51:41 Medical History Condition Response Osteoarthritis Y Kidney Stones Y Hyperthyroidism Y Anxiety Disorder Y Arthritis Y Eczema Y Immunizations Vaccine Type Date Status Note Provider Nam e and Address Organization Details Recorded Time zoster recombinant 2 completed Not Available [facility] 03/04/2025 15:39:34 Influenza, split virus, quadrivalent, [...] Hep B, adult 8 completed Not Available Replaced by [facility] 10/20/2019 03:55:07 Influenza, split virus, quadrivalent, preservative 6 completed Not Available Replaced by [facility] 10/20/2019 03:54:20 SARS-COV-2 (COVID-19) vaccine, UNSPECIFIED 1 completed Lisa Benson null, [place] - [facility] 10/20/2023 09:05:14 SARS-COV-2 (COVID-19) vaccine, UNSPECIFIED 1 completed Lisa Benson null, [place] - [facility] 10/20/2023 09:05:14 Hep B, adult 8 completed Not Available Replaced by [facility] 10/20/2019 03:55:07 Influenza, split virus, quadrivalent, preservative 8 completed Not Available Replaced by [facility] 10/20/2019 03:55:28 Hep B, adult 9 completed Not Available Replaced by [facility] 10/20/2019 03:56:08 Hep A, adult 9 completed Not Available Replaced by [facility] 10/20/2019 03:56:04 zoster recombinant 2 completed Meseret Camacho null, [place] - [facility] 09/06/2023 10:29:25 Influenza, split virus, quadrivalent, preservative 9 completed Not Available Replaced by [facility] 10/20/2019 03:56:15 Past Encounters Encounter ID Performer Location Encounter Start Date Encounter Closed Date Diagnosis/Indication Diagnosis SNOMED-CT Code Diagnosis ICD10 Code Diagnosis Note [id number] Iliana Ashraf APRN [facility] [address] [place] [address] 03/04/2025 15:39:08 03/04/2025 17:00:29 Anxiety 73907177 F41.9 Pt compliant with plan of careKasper reviewedme dication compliance discussedL ast uds:03/04/25 Control substance agreement on file Low back pain 539808929 M54.50 follow up with ptxraysfol low up with neurosurge on Health Concerns Section Related Observation LastModified by Organization Detai ls LastModified Time None Recorded Concern Status LastModified by Organization Details LastModified Time None Recorded Payers Encounter Date Sequence Insurance Name Policy Number Policy Mac Covered Member ID Mac Member ID Guarantor Name 03/04/2025 1 [place] [id number] Essence Dunlap [id number] Nitin Dunlap Notes Date Note Type Note Provider Name and Address Organization Details Recorded Time 03/04/2025 text/html Back PainReporte d bypatient.Location: pain [...] when he really needs them. Iliana Ashraf, [employer] [address], [place], [address], [place] - [facility] 03/04/2025 17:21:00
--- OUTSIDE RECORDS SUMMARY | 2025-03-21 14:32 | XMS_ITS | Continuity of Care Document ---
Author Organization Ariella Aranda [facility] Address [address] [place] [address] Assessment No assessment recorded. Plan of Treatment Reminders Order Date Submit Date Provider Last Modified By Organization Details Last Modified Time Details Appointments None recorded . Lab CMP, serum or plasma 025 01/30/20 [facility] [facility], [address], Jaziel F, [place], [address], 12:12:57 lipid panel, serum 025 01/30/20 [facility], [address], Jaziel F, [place], [address], 12:12:58 Referral None recorded . Procedures None recorded . Surgeries None recorded . Imaging None recorded . Medication Orders None recorded . Patient TargetsNo targets recorded. Patient InstructionsNo instructions recorded. Reason for Referral None Reported. Results Created Date Observation Date Name Description Value Unit Range Abnormal Flag Note LastModifiedBy Organization Detail LastModifiedTime 01/08/20 CT, hip, w/o contr ast No observ ation record ed. [facility] [address], [place], [address], 01/10/2025 13:31:03 01/25/20 25 01/17/2025 MRI, lumba r spine , w/o contr ast No observ ation record ed. maura Eddy [employer] [address] [facility] , [place], [address], 01/29/2025 08:10:49 06/13/20 25 XR, lumba r spine , 2 view No observ ation record ed. [email or web address] [address] , [place], [address], 03/15/2025 08:33:02 Result Notes None recorded. Problems Name Problem SNOMED Code Status Onset Date Resolution Date Notes Provider Name and Address Organization Details Recorded Time Anxiety 57790906 Active Thea Mcgarry null, [place] - [facility] 2 14:18:00 Arthritis 0126906 Active Thea Cummingsmitt null, [place] - [facility] 2 14:18:00 Kidney stone 26467383 Active Thea Cummingsmitt null, [place] - [facility] 2 14:18:00 Eczema 91072102 Active Thea Cummingsmitt [place], [place] - [facility] 2 14:18:00 Osteoarthritis 780920849 Active Thea Cummingsmitt [place] - [facility] 2 14:18:00 Exposure to SARS-CoV-2 Active 2019 Thea Dummitt null, [place] - [facility] 2 14:18:00 Family history of diabetes mellitus type 2 590476047 Active 2020 Thea Cummingsmitt [place] - [facility] 2 14:18:00 Anxiety disorder 310915498 Active 2020 Thea Cummingsmitt [place] - [facility] 2 14:18:00 Thyroid hormone tests outside reference range 459236246 Active 2020 Thea Emilianomitt null, [place] - [facility] 2 14:18:00 Vitamin D deficiency 45823276 Active 2020 Thea Dummitt [place] - [facility] 2 14:18:00 Nicotine dependence 69848569 Active 2020 Thea Cummingsmitt [place] - [facility] 2 14:18:00 Thyroid nodule 982439460 Active 2020 Thea Cummingsmitt [place] - [facility] 2 14:18:00 Coronary arterioscleros is 86652182 Active 2020 Thea Cummingsmitt null, [place] - [facility] 2 14:18:00 Acute myocardial infarction of inferior wall 16729395 Active Thea Cummingskm [facility], [place] - [facility] 14:18:00 Problem Notes None recorded. Procedures Surgical History Date Name Laterality Status Provider Name and Address Organization Details Recorded Time 09/03/20 Medication Reconcilliation completed Meseret Camacho [place] - [facility] 09/03/2024 10:16:15 11/23/19 23 A1C level 6.9 and below completed Suzanna Estrada [place] - [facility] 11/23/2022 14:06:38 04/23/20 Knee Surgery completed Purnima Centeno [place] - [facility] 07/01/2022 12:57:07 10/21/19 22 Joint Injection completed Sean Salomon MD [address], [place], [address], [place] - [facility] 10/21/2021 09:18:57 09/23/20 Medication Reconcilliation completed Purnima Centeno [place] - [facility] 09/23/2021 11:11:44 09/19/20 Cardiac Cath completed Purnima Centeno [place] - [facility] 09/23/2021 11:17:54 09/17/20 21 Joint Injection completed Sean Salomon MD [address], [place], [address], [place] [facility] 09/17/2021 16:53:25 06/23/20 21 OMT completed Matt Rivera DO [address], [place], [address], [place] - [facility] 06/23/2021 10:30:28 06/09/20 21 OMT completed Matt Rivera DO [address], [place], [address], [place] [facility] 06/09/2021 10:33:46 03/19/20 21 Colonoscopy completed America Barber RN [address], [place], [address], [place] - [facility] 04/22/2021 16:41:30 01/28/20 21 Arthrocentesis Joint/Bursa Large completed Grace Moreno [place] - [facility] 01/27/2021 09:20:56 07/29/20 20 Diastolic B/P less than 80 mm Hg completed Suzanna Estrada [place] - [facility] 07/29/2020 15:55:20 10/27/20 20 Systolic B/P greater than or equal [...] 06/09/20 17 I&D completed Sean Salomon MD [address] [place] [address], [address] [place] - [facility] 06/09/2017 16:42:28 Elbow arthroscopy/surgery completed Suzanna KHAN - [facility] 08/02/2016 15:46:33 Knee Surgery completed Suzanna KHAN - [facility] 08/02/2016 15:47:58 Kidney endoscopy & treatment completed Suzanna KHAN - [facility] 08/02/2016 15:48:32 ENT Surgery completed Felicitas Mendiola [place] - [facility] 07/17/2019 08:34:19 Imaging Results None recorded. Procedure Notes None recorded. Medical Equipment None Reported. Allergies Allergen ID Allergen Name Allergen Category Reaction Reaction Severity Criticality Documentation Date Start Date Code Code System Note Provider Name and Address Organization Details Recorded Time 529201 [facility] medicatio n Not available Not available Not available 03/20/20212020 58535 RxNorm Ronnie Jarrell null, [place] - [facility] 1 09:41:44 97048 Lamisil medicatio n Not available Not available Not available 07/09/20162011 61951 6 RxNorm unkno laurita Estrada null, [place] [...] on: 02/12/20 14 11:44AM; User: henry EstLynnette Completi on: 11/20/19 13;Indic ation: Hemorrho ids - (7206 00) Not Available Not Available Not Available [...] 10 Not Available Not Available Not Available [place] 1 qhs 07/03 completed norco 5/325mg; Recorded [...] Disconti nued on: 01/09/20 13 4:33PM;U ser: [email or web address] ryh;Est. Completi on: 01/23/20 13;Indic ation: - [...] Disconti nued on: 12/09/19 16 4:40PM;U ser: [email or web address] ryh;Est. Completi on: 12/16/19 16;Indic ation: - (-5) Not Available Not Available Not Available tramadol one q 4 hrs prn. 12/30 completed tramadol 50 mg.;Kael rded Status: Recorded on: 02/12/20 14 11:44AM; Disconti nued Status: Disconti nued on: 12/31/19 15 8:54AM;U ser: [email or web address]; Est. Completi on: 05/12/20 14;Indic ation: knees [...] nued on: 03/29/20 12 3:55PM;U ser: ant coronah;Est. Completi on: 10/28/19 12;Indic ation: None Selected [...] Not Available Vitals Date Recorded Body height Heart rate Oxygen saturation Oxygen saturation in Arterial blood by Pulse oximetry Respiratory rate Systolic blood pressure Diastolic blood pressure Provider Name and Address Organization Details Last Updated DateTime 5 176.53 cm 67 /min 97 % 97 % 18 /min 140 mm[Hg] 82 mm[Hg] Lisa Benson [place] [facility] 5 08:07:54 Social History Question Answer Notes LastModified by Organization Details LastModified Time Tobacco Smoking Status Current Every Day Smoker Not Available [facility] 07/18/2020 03:13:30 Able To Swim? No Information not available 2016 Do You Have An Advance Directive? No [id number] Information not available 07/18/2020 Do You Wear A Helmet When Biking? No [id number] Information not available 07/18/2020 Are You Blind Or Do You Have Difficulty Seeing? No [id number] Information not available 07/18/2020 What Is Your Level Of Caffeine Consumption? Moderate [id number] Information not available 07/18/2020 How Much Tobacco Do You Chew? None [id number] Information not available 07/18/2020 Are You Deaf Or Do You Have Serious Difficulty Hearing? No [id number] Information not available 07/18/2020 What Type Of Diet Are You Following? REGULAR [id number] Information not available 07/18/2020 Which Illicit Or Recreational Drugs Have You Used? None [id number] Information not available 07/18/2020 What Is The Highest Grade Or Level Of School You Have Completed Or The Highest Degree You Have Received? [id number] Information not available 05/12/2023 Swimming/diving No Informati [...] How Many Children Do You Have? 2 [id number] Information not available 07/18/2020 What Is Your Current Pack Years? 30ormorepackye ars [id number] Information not available 07/18/2020 Do You Use Protection During Sex? No [id number] Information not available 07/18/2020 Do You Use Protection Against STDs? No Information not available 05/12/2023 What Is Your Relationship Status? [id number] Information not available 07/18/2020 Seat Belts Used Routinely Yes Information not available 2016 Are You Sexually Active? Yes [id number] Information not available 07/18/2020 Smoke Alarm In Home No Information not available 2016 Do You Have Smoke And Carbon Monoxide Detectors In Your Home? Yes Information not available 09/17/2021 At What Age Did You Start Smoking Tobacco? 18 [id number] Information not available 07/18/2020 Are You Passively Exposed To Smoke? Yes [id number] Information not available 07/18/2020 How Much Tobacco Do You Smoke? 1 PPD 15 Ciggarettes Per Day bstears Information not available 02/09/2024 General Stress Level High Information not available 2016 Do You Use Sunscreen Routinely? No [id number] Information not available 07/18/2020 Has Tobacco Cessation Counseling Been Provided? Yes Information not available 09/17/2021 On What Date Was Tobacco Cessation Counseling Provided? 12/11/2024 Information not available 12/11/2024 How Many Years Have You Smoked Tobacco? 45 [email or web address] Information not available 02/09/2024 Do You Have Difficulty Walking Or Climbing Stairs? No [id number] Information not available 07/18/2020 Sex: Male Functional Status Question Answer Note LastModified by Organizat ion Details LastModified Time Do you or have you ever used smokeless tobacco? Never used smokeless tobacco [id number] Information not available 07/18/2020 Are you currently employed? Yes [id number] Information not available 07/18/2020 Do you have transportation difficulties? No Information not available 09/17/2021 Are you able to care for yourself? Yes [id number] Information n ot available 07/18/2020 Do you have difficulty dressing or bathing? No [id number] Information not available 07/18/2020 Do you or have you ever used e-cigarettes or vape? Never used electronic cigarettes [id number] Information not available 07/18/2020 What is your exercise level? None [id number] Information not available 07/18/2020 Do you use any illicit or recreational drugs? No Information not available 09/17/2021 Do you or have you ever used any other forms of tobacco or nicotine? No Information not available 09/17/2021 What is your level of alcohol consumption? None [id number] Information not available 07/18/2020 Are you able to walk? YESWOREST [id number] Information not available 07/18/2020 Do you have difficulty doing errands alone? 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 [id number] Information not available 09/17/2021 Do you have difficulty concentrating, remembering or making decisions? No [id number] Information no t available 07/18/2020 Family History [...] Time zoster recombinant 2 completed Not Available [facility] 03/04/2025 15:39:34 Influenza, split virus, quadrivalent, preservative [...] quadrivalent, preservative 3 completed Meseret Stears null, [place] - [facility] 09/06/2023 10:33:09 Influenza, split virus, trivalent, preservative 4 completed Meseret Stears null, [place] - [facility] 09/10/2024 11:57:05 Hep B, adult 8 completed Not Available [facility] 10/20/2019 03:55:07 Influenza, split virus, quadrivalent, preservative 6 completed Not Available [facility] 10/20/2019 03:54:20 SARS-COV-2 (COVID-19) vaccine, UNSPECIFIED 1 completed Lisa Benson null, [place] - [facility] 10/20/2023 09:05:14 SARS-COV-2 (COVID-19) vaccine, UNSPECIFIED 1 completed Lisa Benson [place] [facility] 10/20/2023 09:05:14 Hep B, adult 8 completed Not Available [facility] 10/20/2019 03:55:07 Influenza, split virus, quadrivalent, preservative 8 completed Not Available [facility] 10/20/2019 03:55:28 Hep B, adult 9 completed Not Available [facility] 10/20/2019 03:56:08 Hep A, adult 9 completed Not Available [facility] 10/20/2019 03:56:04 zoster recombinant 2 completed Meseret Stears null, [place] [facility] 09/06/2023 10:29:25 Influenza, split virus, quadrivalent, preservative 9 completed Not Available [facility] 10/20/2019 03:56:15 Past Encounters Encounter ID Performer Location Encounter Start Date Encounter Closed Date Diagnosis/Indication Diagnosis SNOMED-CT Code Diagnosis ICD10 Code Diagnosis Note [id number] Iliana Ashraf APRN [facility] [address] [address] 01/01/2025 15:37:25 01/01/2025 16:49:20 Pain of right hip joint 0106971275 [address] r/o Avascular Necrosis of the Femoral Head [id number] Iliana Ashraf APRN [facility] [address] [address] 01/29/2025 07:55:15 01/29/2025 08:32:17 Coronary arteriosclerosis 72073404 I25.10 Low back pain 000219176 M54.50 Health Concerns Section Related Observation LastModified by Organization Detai ls LastModified Time None Recorded Concern Status LastModified by Organization Details LastModified Time None Recorded Payers Encounter Date Sequence Insurance Name Policy Number Policy Mac Covered Member ID Mac Member ID Guarantor Name 01/29/2025 1 [place] [id number] Essence Dunlap [id number] Nitin Dunlap Notes Date Note Type Note Provider Name and Address Organization Details Recorded Time 01/29/2025 text/html 64 yr old male presents for lab work for cardiology. pt states he is doing well waiting for appointment for neurosurgery for back pain Iliana Ashraf APRN [address], [place], [address], [place] [facility] 01/29/2025 08:22:06
--- NOTE | 2025-03-21 14:39 | A.OFFVIS_ITS ---
HPI Data of Consult Patient: new to practice Consult date: 03/21/25 Requesting Physician: Zenaida Slade APRN Primary Care Provider: Iliana Ashraf APRN Reason for consult: Right-sided calf pain, foot pain History of present illness: Mr. Dunlap is a 64 year old male who presents today as a new patient. He is a referral from [facility] with Dr. Patterson. Today he rates his pain a 6 out of 10. Patient states that he has having chronic pain there in his right calf and foot with burning stinging sensations that is constant. Patient states this did all start in December and he really did not have any specific injury other than he was doing more substantial lifting. Patient states that he has continued since then to have increased pain. He does state that initially he was having more groin and hip pain however that is down. He has tried oral medications including Tylenol, heat and multiple topicals with minimal relief. Patient did attempt to go to the chiropractor for 7 different sessions however this made his symptoms worse. He also tried massage therapy with minimal changes. Patient did end up seeing neurology and had an EMG that did show a L5-S1 radiculopathy. Patient has also been to neurosurgery who was recommending conservative treatments with injections. Patient was ordered physical therapy however states that he was very concerned that this would make his pain worse as the chiropractor therapy did. He does state the pain is interfering with his ability perform activities of daily living such as cooking and cleaning. He is interested in any options we may be able to provide. He does state the pain is much worse the more activity he does. He does state when he walked back to our clinic area it did go 9 out of 10. Patient denies any previous injections or surgery.He is currently managed with alprazolam 1 mg daily, pregabalin 75 mg twice a day and tramadol 50 mg from outside providers. His Rickey has been reviewed. Pain at rest (0-10 scale): 6 Has patient had previous pain injection?: No Conservative treatment options previously tried: Home exercise plan (Longer than 12 weeks), Chiropractor (7 sessions made worse), Prescription medications (Longer than 6 weeks) and Massage (2 sessions no change) cc:: CC: Zenaida Slade APRN [facility] Disclaimer: The information contained in this section may have been updated after the patient was seen, as this information can be updated by other users. Surgical History (Updated 03/21/25 @ 14:53 by Blanka Foreman RN) Knee joint replacement status H/O heart artery stent Family History (Updated 03/21/25 @ 14:53 by Blanka Foreman RN) Other Family history of cancer Social History Smoking Status: Unknown if ever smoked alcohol intake: never current occupational status: employed Travel in the last 8 weeks?: None Review of Systems Review of Systems Review of systems:: pertinent systems reviewed and negative unless documented below Review of systems (narrative): Review of Systems: General: No recent weight changes, no fever, no sleep disturbances Respiratory: No cough, no shortness of air, no recurring pulmonary infections Cardiovascular/peripheral vascular: No chest pain, no palpitations, no edema, no shortness of breath Gastrointestinal: No new onset incontinence, normal bowel movements reported Genitourinary: No new onset incontinence Musculoskeletal: Right calf pain, foot numbness tingling Psychiatric: [Normal mood/affect] Neurological: [Denies weakness in extremities], [denies balance issues] Meds Home Medications and Allergies Home Medications ?Medication ?Instructions ?Recorded ?Confirmed ?Type atorvastatin 40 mg tablet 40 mg PO DAILY 03/21/2503/03 History clopidogrel 75 mg tablet 75 mg PO DAILY 03/21/2503/03 History naproxen sodium 220 mg tablet 440 mg PO BID PRN Pain 0 03/21/25 03/21/25 History omeprazole 20 mg capsule,delayed 20 mg PO DAILY 03/21/25 History release pregabalin 75 mg capsule 75 mg PO BID 03/21/25 History New Prescriptions to Start Prescriptions: Allergies Allergy/AdvReac Type Severity Reaction Status Date / Time No Known Allergies Allergy Verified 03/21/25 14:53 Objective Narrative: Physical Exam: General: Alert and oriented x3, no acute distress, pleasant and cooperative Lungs: Respirations even and unlabored, symmetrical chest expansion Eyes: PERRL Musculoskeletal: Flexion and extension of lumbar [spine] somewhat guarded secondary to pain, [antalgic gait noted] positive right leg raise Neurological: Speech clear, no gross sensory deficit Additional findings Additional findings: Lumbar MRI without contrast 01/17/2025 findings: Sagittal and axial sequences were obtained lumbar spine without contrast. Vertebral and normal alignment. Normal vertebral body height. L1-L2: Normal disc height. No herniation or central canal stenosis. No neuroforaminal narrowing. L2-L3: Loss of disc space height with decreased signal intensity of the disc indicative of disc degeneration. Mild degenerative endplate changes. Minimal annular bulge without focal herniation or canal stenosis. Facet hypertrophy results in moderate bilateral neuroforaminal stenosis. Left greater than right. L3-L4 diffuse loss of disc space height with chronic degenerative endplate changes and annular disc bulge. No canal stenosis. Bilateral facet and ligamentum flavum hypertrophy which results in severe right moderate to severe left neuroforaminal stenosis. L4-L5: Diffuse loss of disc space height with degenerative endplate changes and annular disc bulge. No central canal stenosis. Moderate bilateral facet and ligamentum flavum hypertrophy. Severe bilateral neuroforaminal stenosis. L5-S1: Normal disc height. Chronic degenerative disc changes without herniation. No central canal stenosis. Moderate left and severe right neuroforaminal stenosis. Assessment and Plan *Assessment and plan (1) Degenerative disc disease: Status: Acute Category: Medical (2) Lumbar radiculopathy: Status: Acute Category: Medical Code(s): M54.16 - Radiculopathy, lumbar region (3) Right calf pain: Status: Acute Category: Medical Code(s): M79.661 - Pain in right lower leg Plan Patient is experiencing worsening pain in his right calf with numbness and tingling and burning sensations that do go into the right foot. Patient did describe it along the outer lateral edge. He states it was constant. Patient does also have significant findings at multiple levels however did also have an EMG that did show an L5-S1 radiculopathy. I did discuss with the patient that his symptoms do consistently follow the L5-S1 dermatome and I would recommend a lumbar epidural steroid injection at this level. Risk and benefits were discussed with the patient and he would like to proceed forward with this plan of care. Patient is on blood thinners written by Dr. Dan and they are in [place]. We will reach out to him and confirm that he can stop this medication prior to this injection. Patient has tried and failed conservative therapy including oral medication, heat and ice, topicals, chiropractor therapy, massage therapy and continued at home stretching exercise that was physician guided for longer than 12 weeks. Patient will be scheduled for an [facility] L5-S1 under fluoroscopy. I will also order the patient a compounded cream. Patient has been instructed to contact the clinic with any concerns before the next appointment. Dr. Richardson has reviewed this note and agrees with this plan of care. This note was dictated using voice recognition software and make contain errors or omissions. All injections are used with Lidocaine, Bupivacaine and dexamethasone. Occasionally urine drug screen is needed to verify patient's compliance with our office pain contract. This is ordered based off specific treatments related to chronic pain with the potential to abuse certain medications.
[2025-03-21 14:45] VITALS: BP 144/72; PULSE 74; RESP 16; O2SAT 98; BMI 24.5
== END 2025-03-21 23:59 | disposition home or self-care (01) ==
LOC: SC.PAIN 14:19
PROVIDERS: PCP Nurse Practitioner Family; Visit Provider Nurse Practitioner Family
DX: M54.16 Radiculopathy, lumbar region (principal); M79.661 Pain in right lower leg; Z79.891 Long term (current) use of opiate analgesic; Z79.899 Other long term (current) drug therapy
CPT/HCPCS: 99202; G0463

== ENCOUNTER 2025-04-16 13:44 | Day surgery (SDC) | payer BC, SELFPAY | END 2025-04-17 09:05 | disposition home or self-care (01) | LOC: SC.PAINP 13:45 | PROVIDERS: PCP Nurse Practitioner Family; Visit Provider Nurse Anesthetist, Certified Registered | DX: M54.16 Radiculopathy, lumbar region (principal); Z53.20 Procedure and treatment not carried out because of patient's decision for unspecified reasons ==